=== PATIENT | female | born 1965 | race African-American/Black ===

== ENCOUNTER 2016-11-28 08:44 | Inpatient (IN) | payer OTHER ==
[~2016-11-28] VITALS: Ht 167.6 cm; Wt 98.7 kg
[2016-11-28] VITALS (22 sets, daily range): BP systolic 126–163; BP diastolic 56–90
--- NOTE | ~2016-11-28 | HC ---
[facility] [place] [address] CONSULTATION Name: CELY TIPTON Room #: [facility] IN M.R.#: [id number] Admission: 11/28/16 Attend Phys: Bradford Perez MD Discharge: Date of : 63 Report #: [id number] THIS REPORT FOR: //name// CC: Mansoor Pringle MD, Dr. Julio Cesar Perez REASON FOR CONSULTATION: Catheter-associated upper extremity extensive DVT and currently on prophylactic Lovenox. HISTORY OF PRESENT ILLNESS: The patient is a 51-year-old -[place] female in the ICU, on the ventilator. She was admitted earlier for evaluation of outpatient shortness of breath and pneumonia. Note that she had a PICC line and catheter placed on approximately November 28, was also on prophylactic Lovenox 40 mg. Unfortunately, she developed progressive arm swelling and an ultrasound done yesterday showed extensive upper right extremity DVT involving the right internal jugular, subclavian, axillary and visualized brachial veins. The description was "there was extensive occlusive thrombus within the right upper extremity venous system, including the internal jugular vein, subclavian vein, axillary vein and the visualized brachial veins. The basilic vein is not well visualized. The cephalic vein and radial and ulnar veins are patent". The patient is on the vent and currently sedated and not responding to voice or gentle touch. Note that the patient was originally admitted on November 28 for shortness of breath, cough and chest pain. She had a recent admission for pneumonia and presented with progressive worsening shortness of breath since 05:00 a.m. that morning. At that time, she described having a cough that was mostly nonproductive, had some mild shortness of breath with activity. She also had chest discomfort that was sharp and stabbing and increased with inspiration. No history of any fever, nausea or vomiting. In the ER, she was found to be profoundly hypoxic. The patient underwent surgery on 11/29/[address] Graeme Syed. This was a bronchoscopy with right video-assisted thoracoscopy with wedge resection of the lower and middle lobes. The pathology on this has come back described as wedge biopsies of alveolated lung tissue with architecture and patchy areas of organizing pneumonia. 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 As mentioned above, the patient did have a PICC line placed on November 28 and has been on prophylactic Lovenox. Per the chart, there was no previous history of DVT or clotting abnormality, no mention of family history, but it is really not obtainable at this time. PAST MEDICAL HISTORY: Past history is notable for the history of the recent BOOP, diabetes, cholecystectomy, hypertension and pneumonia in October 2016. Has had a normal echocardiogram. [address] [address] CONSULTATION Name: CELY TIPTON Room #: 244-P ADM IN M.R.#: [id number] Admission: 11/28/16 Attend Phys: Bradford Perez MD Discharge: Date of : 63 Report #: [id number] ALLERGIES: No known drug allergies. MEDICATIONS: At this time currently include docusate 100 b.i.d., Lovenox 100 b.i.d. begun yesterday, insulin on a sliding scale, fentanyl 50 mcg p.r.n., propofol on a drip, ipratropium and albuterol 3 mL via respiratory therapy q.4h. p.r.n., methylprednisolone 250 mg q.6h. begun on the , ceftriaxone 1 gram IV q.24h., amlodipine 10 mg daily, pantoprazole 40 daily, IV lorazepam 0.5 q.6h. IV p.r.n., hydralazine p.r.n., insulin 30 units detemir b.i.d., Zofran p.r.n., nicardipine drip as needed, gabapentin 100 mg b.i.d. and Tylenol p.r.n. LABORATORY DATA: Lab exams thus far have included recent BUN of 24 and creatinine of 0.5. Electrolytes fairly unremarkable. AST on the was 26. Total bilirubin 0.4, directly 0.1. Calcium 8. Magnesium 2.5. AST 3.8. Albumin recently 2.4. Coags on the were normal, with a protime of 11.3, INR 1.1 and APTT 25.9. D-dimer is elevated at 0.9 on November 09. Recent white count of 9.9, hemoglobin 8.8. Note that on admission, on November 07, it was 10.4. MCV when admitted back on November 07 was 79.2; more recently, it has 77.8. Platelet count 177,000. Note that back when she was originally admitted on , it was 566,000. This admission, the first, was 280,000. Differential shows increased neutrophils. Differential has described large platelets, no acute forms. Sed rate of 90 on the first. Rheumatoid factor 16.4. SOFIA profile: C4 was 31, normal range; C3 was 142, normal range. Simmons antibody negative. [employer] antibody negative. IgG 1370, IgA 227 and IgM 154. Hemoglobin A1c 8.7. IgE 694. Multiple infections and allergy type tests appeared to be negative on my understanding. Radiologically, the patient had a recent CT chest on the , showing improvement in the infiltrate and atelectasis in the lung bases, with significant increase in ground-glass opacities. No evidence of acute pulmonary embolism that day. The visible abdominal structure showed surgical changes of cholecystectomy and gastric catheter in place. PHYSICAL EXAMINATION: VITAL SIGNS: Height is 5 feet 6 inches, which is 167.6 cm. Weight is 228 pounds, which is 103.6 kilograms. Blood pressure 135/67, respirations 22, pulse 90 and temperature 97.8 axillary. The patient is currently on FiO2 of 50% with O2 sat of 98%. NEUROLOGIC: The patient is sedate. Mood, cannot assess neurologically. The patient's face is symmetrical, but she is not really responding at this time. HEART: Regular rate. LUNGS: Have some slight coarse rhonchi. No definite wheezes at this time. EXTREMITIES: Note, the patient has a PICC line in her right arm. No distinct obvious collateralization of veins. Right arm does appear slightly more swollen than the left. Extremities are without clubbing or cyanosis. SCDs are in place. It appears to be 1-2 mm edema peripherally. ABDOMEN: Appears to be soft, nontender. No masses. [address] [address] CONSULTATION Name: CELY TIPTON Room #: 244-P ADM IN M.R.#: [id number] Admission: 11/28/16 Attend Phys: Bradford Perez MD Discharge: Date of : 63 Report #: [id number] GENITOURINARY: Briggs shows normal urine, without any blood. SKIN: Does not show any evidence of ecchymosis. ASSESSMENT AND PLAN: 1. Extensive upper extremity catheter-associated deep venous thrombosis, currently on prophylactic Lovenox. I agree with therapeutic Lovenox with probable transition to Coumadin at a later date. Most likely, this clot is related to inflammatory state and catheter causing irritation of the vascular wall. We will check some hypercoagulable panel to suggest most of it might make a difference in long-term anticoagulation. We will check anticardiolipin antibodies, lupus anticoagulants and glycoprotein 1 antibodies. If they are positive, I would strongly consider Coumadin as treatment and I would also wish to repeat blood test in 3 months to see if it is persistent. Would also probably consider longer duration than usual, such as 6 months of duration of catheter-associated clot treatment, appears to be extensive in nature. Would also prefer to wait 3 days of anticoagulation to let the clot get smaller so there is less clot to possibly break loose when the catheter is removed. It is critical that the patient gets best not to take any chance about an additional PE on top of her compromised respiratory status. Would also target INR 2-3 at this point, if she is switched to Coumadin. 2. Anemia. Most likely iron deficient. We will check lab, but a drop in MCV from 80s to 79s suggests this. With multiple lab draws, this is the most likely cause. 3. Bronchiolitis obliterans with organizing pneumonia. Continue steroids and antibiotics per others. 4. Hypoxic respiratory failure. Defer ventilatory management to pulmonary. 5. Diabetes. Continue sliding scale insulin. 6. Hypertension. Meds. 7. Nutrition. Continues control feeding. We will follow with you. <ELECTRONICALLY SIGNED> By: Chris Nguyen MD 12/08/16 0737 [id number] [id number] Chris Nguyen MD /nt
--- NOTE | ~2016-11-28 | H ---
[facility] [place] [address] HISTORY AND PHYSICAL Name: SAEEDCELY Room #: 244-P ADM IN M.R.#: [id number] Admission: 11/28/16 Attend Phys: Bradford Perez MD Discharge: Date of : 63 Report #: [id number] THIS REPORT FOR: //name// CC: Julio Cesar Perez DATE OF SERVICE: 11/28/2016 CHIEF COMPLAINT: Shortness of breath, cough and chest pain. HISTORY OF PRESENT ILLNESS: The patient is a 51-year-old female with history of diabetes, history of hypertension and recent admission for pneumonia at [facility], presented to the Emergency Room complaining of progressively worsening shortness of breath, pretty much worse since 5:00 a.m. this morning. The patient was admitted here for pneumonia and was discharged on 11/14/2016. Patient states she has had cough since then. Cough has been mostly nonproductive. She has had some mild shortness of breath with activity. She works at [employer] [facility] and in fact was able to go back to work on Saturday. This morning she started having increasing shortness of breath at 5:00 a.m. this morning when she was asleep and she also had chest pain, that are sharp and stabbing, which increases with inspiration. She has had cough with nonproductive sputum. No history of any fever. No nausea, vomiting. On arrival to the Emergency Room, the patient was profoundly hypoxic. The patient was placed on a nonrebreather. PAST MEDICAL HISTORY: Significant for diabetes, cholecyste ctomy, hypertension, pneumonia in October 2016. No history of any peptic ulcer disease, bleeding disorder, no cardiac history. She did have an echocardiogram done during last admission last month, which showed normal ejection fraction. ALLERGIES: No known drug allergy. HOME MEDICATIONS: Reviewed, please look at the nursing documentation for home medications. SOCIAL HISTORY: No smoking or alcohol abuse or illicit drug abuse. FAMILY HISTORY: Significant for diabetes. REVIEW OF SYSTEMS: CONSTITUTIONAL: No change in her weight. No fever or chills. EYES: No change in vision. THROAT: Denies any sore throat. CARDIOVASCULAR: As above. No dizziness or palpitations. RESPIRATORY: As above. GASTROINTESTINAL: No nausea, vomiting, abdominal pain. [address] [address] HISTORY AND PHYSICAL Name: CEYL TIPTON Room #: 244-P [facility] IN M.R.#: [id number] Admission: 11/28/16 Attend Phys: Bradford Perez MD Discharge: Date of : 63 Report #: [id number] GENITOURINARY: No dysuria, hematuria. NEUROLOGIC: No focal numbness or weakness of the extremity. PSYCHIATRIC: No anxiety or depression. A 12-point review of system is negative other than the positive and negative dictated in the history of present illness and the review of system. PHYSICAL EXAMINATION: VITAL SIGNS: Blood pressure is 162/73, heart rate of 130 per minute. She is breathing at 40 per minute. GENERAL: She is in moderate respiratory distress, presently on a Ventimask. She is awake and alert, and follows commands. She is saturating 98% on Ventimask. EYES: Pupils are equal, reacting to light. Throat appears normal. NECK: Supple, no JVD, no bruit, no lymphadenopathy. CARDIOVASCULAR SYSTEM: S1, S2. No S3. CHEST: Bilateral air entry present. Reduced breath sounds in the bases, mostly clear on auscultation. ABDOMEN: Soft, bowel sounds present, no mass, no organomegaly, no tenderness. EXTREMITIES: Periphery left leg, she has 1+ edema and the left leg appears to be slightly more swollen than the right leg. Dorsalis pedis 1+. NEUROLOGICAL: The patient is awake and alert and able to move all 4 extremities. LABORATORY DATA: Reviewed. EKG showed sinus tachycardia. Rate at 130 per minute. Chest x-ray showed bilateral pulmonary infiltrate with worsening left infiltrate compared to previous. This was small pleural effusion. White count is 12.8. Differential is 88% segs. PT, PTT are within normal limit. Blood gas showed a pH of 7.46, pCO2 is 31, pO2 is 45. Chemistry showed a normal BUN and creatinine. AST and ALT are within normal limit. Troponin less than 0.04. UA revealed 2+ ketones, trace blood. Blood glucose was 130. ASSESSMENT AND PLAN: 1. Acute respiratory failure with hypoxia, likely secondary to a pneumonia, possible pulmonary embolism. The patient will be continued on broad-spectrum antibiotic Zosyn plus vancomycin plus levofloxacin and DuoNeb. Pulmonary has been consulted. The patient is scheduled to get a CTA of the chest to rule out pulmonary embolism. I have also ordered a Doppler of the lower extremity to rule out any deep vein thrombosis. She has already been started on Lovenox 1 mg/kg subcutaneous every 12 hours. We will titrate oxygen. We will repeat her blood gas in the morning. 2. Diabetes. We will check hemoglobin A1c. We will place her on sliding scale insulin. 3. Possible hospital-acquired pneumonia. The patient will be continued on broad spectrum antibiotic. We will follow cultures and adjust antibiotic as needed. 4. Deep venous thrombosis prophylaxis. The patient will be on Lovenox. [address] [address] HISTORY AND PHYSICAL Name: CELY TIPTON Room #: 244-P ADM IN M.R.#: [id number] Admission: 11/28/16 Attend Phys: Bradford Perez MD Discharge: Date of : 63 Report #: [id number] 5. Gastrointestinal prophylaxis. The patient will be placed on Protonix. 6. History of hypertension. I will continue to monitor closely. Treatment plan has been explained to the patient in detail. <ELECTRONICALLY SIGNED> By: Bradford Perez MD 11/28/16 1326 1029 1256 Bradford Perez MD /nt
--- NOTE | ~2016-11-28 | P ---
[facility] [place] [address] PROCEDURE REPORT Name: SAEEDCELY Room #: 244-P [facility] IN M.R.#: [id number] Admission: 11/28/16 Attend Phys: Bradford Perez MD Discharge: Date of : 63 Report #: [id number] THIS REPORT FOR: //name// CC: Julio Cesar Perez DATE OF SERVICE: 12/05/2016 PROCEDURE: Intubation. INDICATION: Hypoxemic respiratory failure and respiratory distress. PROCEDURE NOTATION: The patient agreeable to intubation at this time. The patient with severe pulmonary infiltrates and hypoxemic respiratory failure, failing noninvasive ventilation. The patient initially given 3 mg of etomidate. The patient was sedate, but not relaxed enough to open airway. The patient then received 10 mL of propofol; again sedate, but not relaxed. The patient then given mg of succinylcholine. The patient achieved paralysis and significant relaxation. Using a Skyla 4 blade with direct laryngoscopy, a grade 1 view of the vocal cords was noted. A 7.5 endotracheal tube was placed and advanced to 23 cm to the teeth. Positive Easy cap color change and breath sounds were noted bilaterally. No significant hypoxemia during the procedure. The patient tolerated bag mask ventilation prior to intubation. Endotracheal tube secured in place. Chest x-ray pending at this time. <ELECTRONICALLY SIGNED> By: Ty Spann MD 12/10/16 1119 1032 1205 Ty Spann MD /nt
--- NOTE | ~2016-11-28 | HC ---
[facility] [place] [address] CONSULTATION Name: SAEEDCELY Room #: [facility] ADM IN M.R.#: [id number] Admission: 11/28/16 Attend Phys: Bradford Perez MD Discharge: Date of : 63 Report #: [id number] THIS REPORT FOR: //name// CC: Julio Cesar Perez DATE OF SERVICE: 11/28/2016 REFERRING PROVIDER: Bradford Perez MD REASON FOR CONSULTATION: Pneumonia and hypoxemia. CHIEF COMPLAINT: Shortness of breath. HISTORY OF PRESENT ILLNESS: Our group was asked to see the patient in consultation while hospitalized at [facility], seen in the emergency department prior to CT imaging earlier this morning. A very pleasant 51-year-old woman recently hospitalized and discharged 2 weeks ago with underlying community-acquired pneumonia, cultures and influenza screening at that time were negative. The patient was treated with antimicrobial therapy and subsequently discharged 2 weeks ago. The patient states she had been improving; however, over the last 2 days, she had some increasing shortness of breath, cough with no sputum production, has had some fevers and general malaise, symptoms got dramatically worse overnight, presented to the emergency department this morning where she was found to be profoundly hypoxemic, now on high flow nasal cannula O2 with intermittently on nonrebreather mask with respiratory rate of 40 and somewhat in respiratory distress. Chest radiograph in the emergency department revealed worsening bilateral predominant lower lobe infiltrates. A CT scan of the chest PE protocol was performed, which revealed no pulmonary emboli, but did reveal dense consolidation again in the bilateral lower lobes predominantly posterior. There may have been some cavitation to a nodular area in the left posterior upper lobe noted. The patient denies any hemoptysis. No history of any connective tissue disease, although has mother with a history of lupus. The patient has not done any recent travel and as mentioned stated she was doing better until the last few days since her recent discharge. While hospitalized recently, there was no isolation required due to no isolation of resistant pathogens at that time. ALLERGIES: None known. PAST MEDICAL HISTORY: 1. Diabetes mellitus type 2. 2. Hypertension. 3. Recent pneumonia. OUTPATIENT MEDICATIONS: Included recently levofloxacin, prednisone taper, [facility] [address] [place] [address] CONSULTATION Name: CELY TIPTON Room #: 244-P [facility] IN M.R.#: [id number] Admission: 11/28/16 Attend Phys: Bradford Perez MD Discharge: Date of : 63 Report #: [id number] albuterol inhaler, amlodipine, and insulin. 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 FAMILY HISTORY: Significant for systemic lupus in her mother, no significant pulmonary disease or connective tissue disease, otherwise. REVIEW OF SYSTEMS: CONSTITUTIONAL: Fevers and general malaise noted. ENT: No upper respiratory congestion, rhinorrhea, or epistaxis. CARDIOVASCULAR: No chest pains or palpitations. GASTROINTESTINAL: No nausea, vomiting, diarrhea, constipation or abdominal pain. GENITOURINARY: No dysuria or urinary frequency. INTEGUMENT: Denies any rash. MUSCULOSKELETAL: Some generalized weakness and some increased lower extremity edema noted. PHYSICAL EXAMINATION: VITAL SIGNS: Temperature max 38.9, pulse 130s, respiratory rate 40, blood pressure 134/56, and oxygen saturation 99%. GENERAL: This is an obese middle-aged woman, in moderate respiratory distress. HEENT: Clear oropharynx, Mallampati 3 airway. NECK: Supple, no lymphadenopathy. LUNGS: Diminished breath sounds with bronchial breath sounds noted bilaterally one-half way up. No wheezes appreciated. CARDIOVASCULAR: Heart tachycardic, but regular. No murmurs noted. ABDOMEN: Soft, nontender, no masses, no hepatosplenomegaly. EXTREMITIES: With trace lower extremity edema. They are warm with 2+ pulses noted. INTEGUMENT: No rash. LABORATORY DATA: INR was 1.1. Chemistry profile was within normal limits except for an elevated glucose at 130. CK normal. ProBNP normal. Albumin slightly elevated at 2.4. Rest of general chemistries were normal. CBC revealed a white blood cell count of 13,000, hemoglobin 11, hematocrit 35, and platelet count 280. Arterial blood gas done on 4 liters revealed pH 7.47, pCO2 of 31, pO2 of 45, and bicarbonate of 23. Urinalysis did reveal some ketones and a trace amount of blood, was not specified as far as RBC number. Chest x-ray as described. CT as described. IMPRESSION: 1. Recurrent dense consolidation within the bilateral lung gilmore, worrisome for recurrent resistant pathogen from recent pneumonia and also be concerned about post-infectious bronchiolitis obliterans organizing pneumonia. Given the [address] [address] CONSULTATION Name: SAEEDCELY Room #: 244-P ADM IN M.R.#: [id number] Admission: 11/28/16 Attend Phys: Bradford Perez MD Discharge: Date of : 63 Report #: [id number] location, chronic aspiration should be considered. Connective tissue disease, that had been responsive to steroids recently, should be considered in the differential diagnosis. 2. Hypoxemic respiratory failure. SUGGEST: 1. ICU care. 2. Broad-spectrum antimicrobials. 3. Ask Dr. Mansoor Pringle, infectious disease to reconsult this patient. 4. The patient may require bronchoscopy to further evaluate. However, I do not think the patient would tolerate it at this point due to profound hypoxemia and respiratory distress without the use of subsequent mechanical ventilatory support. 5. Check connective tissue serologies. 6. Systemic steroids with taper. 7. Bronchodilators can be continued, but I do not think they were of significant benefit as there was no significant bronchospasm in this patient. 8. Await cultures. 9. Check MRSA screen. 10. Further recommendations will follow. Thank you for requesting our suggestions. <ELECTRONICALLY SIGNED> By: Ty Spann MD 11/30/16 1122 1211 1745 Ty Spann MD /nt
--- NOTE | ~2016-11-28 | S ---
[facility] [place] [address] SURGICAL PATH RPT PROCEDURE Name: CELY TIPTON Room #: 244-P ADM IN M.R.#: [id number] Admission: 11/28/16 Date of : 63 Discharge: Report #: [id number] Path Case #: [id number] PATHOLOGY REPORT COLLECTION DATE: 11/29/2016 RECEIVED DATE: 11/30/2016 SUBMITTING PHYS: Dr. Graeme Syed OTHER PHYS: Dr. Julio Cesar Perez ADDENDUM REPORT (Order Date: 12/06/2016 00:00) ADDENDUM DIAGNOSIS: Please see next page for scanned image of report submitted by [facility] science consultant pathologist, Rd Chapman M.D. (CLW:sy; d/t: 12/07/2016) ADDENDUM COMMENT: ELECTRONICALLY SIGNED BY: Dina Arroyo M.D. DATE/TIME:12/07/2016 11:20 SPECIMEN(S) RECEIVED: A.Right lung lower lobe biopsy B.Right middle lobe biopsy * * * * * * * * * * * * FINAL DIAGNOSIS: A. "Right lung lower lobe biopsy," wedge biopsy: - Alveolated lung tissue with patchy prominent organizing pneumonia and focal acute inflammation and fresh hemorrhage; no significant interstitial fibrosis, granulomas, vasculitis or malignancy seen. (see comment) B. "Right middle lobe biopsy," wedge biopsy: - Alveolated lung tissue with patchy prominent organizing pneumonia and focal acute inflammation and fresh hemorrhage; no significant interstitial fibrosis, granulomas, vasculitis or malignancy seen. (see comment) COMMENT: Specimens A and B are similar histologically. Sections show wedge biopsies of alveolated lung tissue with overall intact architecture and patchy areas of organizing pneumonia. The loose fibroblastic proliferations are uniformly similar and are centered within alveolar spaces. Small focal areas of acute inflammation and fibrin are identified. No significant interstitial fibrosis, granulomas, vasculitis, or malignancy is seen. Clinical and radiographic correlation is required. The case is discussed with Dr. Graeme Syed on 12/03/16 at approximately 12:[address] [place] [address] SURGICAL PATH RPT PROCEDURE Name: CELY TIPTON Room #: 244-P [facility] IN M.R.#: [id number] Admission: 11/28/16 Date of : 63 Discharge: Report #: [id number] Path Case #: [id number] 12/03/16 at 3:45 PM. (CLW:; d/t: 12/03/16) PATHOLOGIST: Dina Arroyo M.D. REPORT ELECTRONICALLY SIGNED BY: Dina Arroyo M.D. DATE/TIME: 12/03/2016 16:21 * * * * * * * * * * * * GROSS PATHOLOGY: A. The specimen is received fresh, gently inflated and subsequently fixed in formalin labeled "Cely Soterorichard, right lung lower lobe biopsy". Received is a wedge resection of pink-pierre lung tissue measuring 4.3 x 4.2 x 1.2 cm in greatest mentions. The francisca are removed and the new margin is inked black. Sectioning reveals pink-pierre to light pierre cut surfaces with no grossly distinct nodules or lesions. The specimen is submitted representatively in cassettes A1 through A3. B. The specimen is received fresh, gently inflated and subsequently fixed in formalin labeled "Cely Tipton, right middle lobe biopsy". Received is a wedge resection of pink-pierre lung tissue measuring 4.3 x 2.7 x 1.4 cm in greatest dimensions. The francisca are removed and the new margin is inked black. Sectioning reveals pale pierre to pink-pierre cut surfaces with no grossly distinct nodules or lesions. The specimen is submitted representatively in cassettes B1 through B3. (CAA; 11/30/2016) CLINICAL HISTORY: Idiopathic pneumonia INITIAL CPT CODE(S): 43710(2) Professional services performed by [facility] at [facility] [address] [place] [address] Technical services performed by [facility] at [address] [place] [address], [address], [place] [address]. [facility] [address] [place] [address] PHONE: [phone] DIRECTOR: Freddie Pyle M.D. * * * END OF REPORT * * *
--- NOTE | ~2016-11-28 | HC ---
[facility] [place] [address] CONSULTATION Name: CELY TIPTON Room #: 244-P ADM IN M.R.#: [id number] Admission: 11/28/16 Attend Phys: Bradford Perez MD Discharge: Date of : 63 Report #: [id number] THIS REPORT FOR: //name// CC: Julio Cesar Perez DATE OF SERVICE: 12/09/2016 GASTROENTEROLOGY CONSULTATION REASON FOR CONSULTATION: Black aspirate per OG tube. CONSULTING PHYSICIAN: Julio Cesar Galdamez DO. HISTORY OF PRESENT ILLNESS: This is a 51-year-old female who was admitted on 11/28/2016 with shortness of breath, cough and chest pain. She is diagnosed with pneumonia, status post thoracostomy with biopsy and pathology consistent with cryptogenic organizing pneumonia. She is currently on the ventilator. A GI consult is requested for black aspirate that was noted yesterday. Currently, the aspirate from the OG tube is bilious. Hemoglobin trend was reviewed and noted to be , 8.9 and 8.8 on the last 3 checks. The patient has had increased residuals and a KUB shows retained stool in the colon, suggestive of constipation. I cannot obtain the history due to her being on the ventilator. Hence, history is obtained from the nurse and chart. REVIEW OF SYSTEMS: Unobtainable. PAST MEDICAL AND SURGICAL HISTORY: 1. Diabetes mellitus. 2. Cholecystectomy. 3. Hypertension. ALLERGIES: Reviewed and noted. MEDICATIONS: Reviewed and noted. SOCIAL HISTORY: Unobtainable. FAMILY HISTORY: Unobtainable. PHYSICAL EXAMINATION: GENERAL: She is currently on the ventilator and sedated. VITAL SIGNS: Hemodynamically stable, afebrile. HEAD: Normocephalic, atraumatic. EYES: Pupils equal, round and reactive to light and accommodation. NECK: Supple. Midline trachea. Thyroid palpable. [facility] [address] [place] [address] CONSULTATION Name: CELY TIPTON Room #: 244-P [facility] IN .R.#: [id number] Admission: 11/28/16 Attend Phys: Bradford Perez MD Discharge: Date of : 63 Report #: [id number] CARDIOVASCULAR EXAMINATION: Regular rate and rhythm. No murmurs. RESPIRATORY: Coarse breath sounds bilaterally. ABDOMEN: Soft, obese. Bowel sounds are hypoactive. EXTREMITIES: With 1+ pitting edema bilaterally. NEUROLOGICAL EXAMINATION: Unable to assess at this time. LABORATORY DATA: Hemoglobin 8.0, white count 11.0 and platelets 244,000. BUN is 21, creatinine 0.5. INR 1.1. DIAGNOSTIC IMPRESSION: 1. Black aspirate per OG. It appears to have resolved now. This could be likely from underlying constipation, as evident on the KUB. Current aspirate is bilious. Hemoglobin trend is noted and is as follows: , 8.9 and 8.8 on last 3 checks. I recommend increasing Protonix to 40 mg IV b.i.d. No endoscopic evaluation indicated at this time. Monitor H and H and transfuse to keep hemoglobin more than 7.0. 2. Abnormal KUB. It shows retained stool in the colon, suggestive of constipation. The patient will currently get suppository as appropriate. Her underlying constipation/ileus may be playing a role in the black aspirate that was evident yesterday on the aspirate per the OG tube. We will follow. Thank you for allowing me to participate in the care of the patient. By: 1135 1238 Montana Bowden MD /nt
--- NOTE | ~2016-11-28 | EKG ---
[address] [address] ELECTROCARDIOGRAM REPORT Name: JOSE CARLOSZaneLEATHACELY Room #: [facility] M.R.#: [id number] Admission: Attend Phys: Discharge: Date of : 63 Report #: [id number] THIS REPORT FOR: //name// [facility] ED Test Date: 2016-11-28 Test Time: 08:54:58 Pat Name: CELY TIPTON Department: Room: Gender: F Training Assistant: ELIZABETH : 1965 Requested By: Mansoor Kirby Order Number: [id number] MD: Reggie Baer Measurements Intervals [place] Rate: 133 P: 48 VA: 125 QRS: 35 QRSD: 73 T: 61 QT: 289 QTc: 430 Interpretive Statements Sinus tachycardia Compared to ECG 11/09/2016 13:56:34 No significant changes Electronically Signed On 11-28-2016 9:14:35 [facility]ITAL[facility] by Reggie Baer [email or web address] <ELECTRONICALLY SIGNED> By: Reggie Baer MD, [facility] 11/28/16 0914 0854 0854 Reggie Baer MD, FACC /EPI
--- NOTE | ~2016-11-28 | EKG ---
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
--- NOTE | ~2016-11-28 | O ---
[facility] [place] [address] OPERATIVE REPORT Name: CELY TIPTON Room #: 244-P ADM IN M.R.#: [id number] Admission: 11/28/16 Attend Phys: Bradford Perez MD Discharge: Date of : 63 Report #: [id number] THIS REPORT FOR: //name// CC: Julio Cesar Perez DATE OF SERVICE: 11/29/2016 PREOPERATIVE DIAGNOSIS: Bilateral idiopathic pneumonia. POSTOPERATIVE DIAGNOSIS: Bilateral idiopathic pneumonia. PROCEDURE: Bronchoscopy, right video-assisted thoracoscopy with wedge resections of lower and middle lobes. SURGEON: Graeme Syed M.D. DIRECTOR RISK: [place]. ANESTHESIA: General. INDICATIONS: Cely Tipton is a 51-year-old with idiopathic pneumonia. The patient had been treated with a combination of antibiotics and steroids and had gotten somewhat better. This was approximately 2 weeks ago in the hospital. Steroids were stopped and the patient had a recrudescence of pneumonia and with concern that the specific etiology was not known. We were asked to see the patient for biopsy. FINDINGS AND TECHNIQUE: After general anesthesia was established, flexible diagnostic bronchoscopy was performed. No endobronchial lesions were noted. Double lumen endotracheal tube was placed and the patient was positioned with right side up. Exposure was obtained through typical video-assisted thoracoscopy ports. Wedge resections were taken of middle and lower lobe with applications of the stapler. Pathology was consulted to see if we had provided adequate samples of lung and the answer was in the affirmative. Hemostasis was ascertained and the chest tube was brought through the lowest port and the other ports were closed in layers. The patient was taken to the recovery area in good condition, having tolerated the procedure well. It should be noted that there were no obvious pleural changes. The lung itself looked a bit cobblestoned, but not dramatically so. This was likely related to edema. No other ____ observations were made. The patient tolerated the [facility] [address] [place] [address] OPERATIVE REPORT Name: CELY TIPTON Room #: 244-P [facility] IN [facility].#: [id number] Admission: 11/28/16 Attend Phys: Bradford Perez MD Discharge: Date of : 63 Report #: [id number] procedure reasonably well with intermittent periods of one long ventilation necessary for her limited pulmonary reserve. The patient was returned to the intensive care unit on the ventilator, having tolerated the procedure well. All counts reported as correct. <ELECTRONICALLY SIGNED> By: Graeme Syed MD 12/12/162009 1749 1821 Graeme Syed MD /nt
--- NOTE | ~2016-11-28 | HC ---
[facility] [place] [address] CONSULTATION Name: CELY TIPTON Room #: 208-[facility] IN M.R.#: [id number] Admission: 11/28/16 Attend Phys: Bradford Perez MD Discharge: 12/19/16 Date of : 63 Report #: [id number] THIS REPORT FOR: //name// CC: Julio Cesar Perez HISTORY OF PRESENT ILLNESS: The patient is a 51-year-old -[place] female employee at [employer] who was recently hospitalized from 11/06 to 11/14/2016 for pneumonia, respiratory failure and diabetes mellitus. She was discharged home, ambulatory, was doing well without gait aids, getting to the point of coming back to work. She then had an increase in her shortness of breath and ended up being readmitted on November 28 with acute respiratory failure. She was noted to have bilateral idiopathic pneumonia and underwent video-assisted thoracoscopy with wedge resection biopsy of lower and middle lobes. 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 She has needed prolonged intubation with mechanical ventilation and was just extubated on December 13. She has had some ileus and has been on TPN. She just passed her swallow study and is now on pureed nectar thickened liquids, but is continuing with TPN for now. She also had an extensive right upper extremity DVT with hematology involved. We are seeing her now in rehabilitation medicine consultation. PAST MEDICAL HISTORY: Includes the noted recent hospitalization with pneumonia, respiratory failure and diabetes. She does have some exogenous obesity. ALLERGIES: No known drug allergies. FAMILY HISTORY: Significant for diabetes. MEDICATIONS: Please see the full medication listing. SOCIAL HISTORY: She lives in a duplex with her daughter and son-in-law. She has 2 sisters and a brother in the area ____ sister as well. There are 5 steps into the duplex. She did not utilize gait aids premorbidly. One of her sister is a nurse by training and notes that she could assist as well. REVIEW OF SYSTEMS: Did not offer any current complaints of chest pain or shortness of breath or abdominal discomfort. She notes she has the lower extremity edema, which is bothersome and is on Lasix. Complains of significant generalized weakness. No focal extremity complaints other than some residual right upper extremity discomfort after having the extensive DVT. PHYSICAL EXAMINATION: GENERAL: A 51-year-old obese -[place] female in no obvious distress. She is currently on 4 liters nasal prong O2. NEUROLOGIC: Facies are symmetric. She does have some swelling of that right [address] [address] CONSULTATION Name: CELY TIPTON Room #: [facility] IN M.R.#: [id number] Admission: 11/28/16 Attend Phys: Bradford Perez MD Discharge: 12/19/16 Date of : 63 Report #: [id number] upper extremity, 2+ edema proximal and distal. Tends to have some discomfort, but was able to move the arm with strength probably a grade 3+/5, left upper extremity strength is grade 3+/5. EXTREMITIES: Lower extremity, she has 1-2+ distal edema. She was unable to lift either leg up off the bed, and I would only grade her lower extremity strength at probably grade 3- to 2+. She appeared to be even weaker both ankles and she may have some component of a foot drop, dorsiflexion and eversion has both appeared to be less than antigravity bilaterally. Proprioception appeared to be reasonably intact. She has been max assist with basic bed mobility. ASSESSMENT: A 51-year-old -[place] female with the following problem list: 1. 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 She has considerable weakness of both lower extremities as well as upper extremities. She may have a component of a critical illness neuropathy as well. 2. Medical complexity with generalized debilitation. 3. Dense pulmonary consolidation status post VATS with biopsy, most consistent with cryptogenic organizing pneumonia. 4. Hypoxemic respiratory failure. 5. Ileus, is now taking a diet, currently pureed with nectar-thickened liquids. She is also currently on TPN. 6. Extensive right upper extremity DVT. 7. Diabetes mellitus type 2. 8. Hypertension. 9. Exogenous obesity. PLAN: I encouraged the patient to continue to work in physical therapy and occupational therapy on building up her strength and endurance. She certainly could be a candidate for an acute in-hospital inpatient rehabilitation stay if she can improve her overall endurance and tolerance for the therapy program. She is very motivated to return back to the home setting when she is better. It would be ideal to be able to have the multiple physician consultants continue to follow the patient while she is on the acute rehab fountain with her multiple above noted comorbidities. At this time, we will continue to follow along and assess her overall tolerance for therapies. She will eventually need insurance precertification issues looked into. Thank you for asking us to assist in this patient's care. We will continue to follow along with you. <ELECTRONICALLY SIGNED> By: Issa Cramer MD 12/21/16 1539 1639 1851 Issa Cramer MD /nt
--- NOTE | ~2016-11-28 | HC ---
[facility] [place] [address] CONSULTATION Name: JOSE CARLOSZaneLEATHACELY Room #: [facility]- ADM IN M.R.#: [id number] Admission: 11/28/16 Attend Phys: Bradford Perez MD Discharge: Date of : 63 Report #: [id number] THIS REPORT FOR: //name// CC: Julio Cesar Perez REASON FOR CONSULTATION: I was asked to evaluate concerning bilateral pulmonary infiltrates and respiratory failure. HISTORY OF PRESENT ILLNESS: The patient is a 51-year-old hospitalized here on 11/06/2016 with which she reported was a 3-day history of cough, sputum production, fever, and chills. Found to have bilateral pulmonary infiltrates. She had a significant amount of pleuritis and congestion. I treated with antibiotics and given a course corticosteroids. She improved and was later dismissed on November 14 off oxygen and feeling reasonably well. She did return to work earlier this week and finished her course of antibiotics end of last week. She finished her prednisone first of this week. Subsequently, developed increased shortness of breath and sensation very similar to her previous presentation with fever and chills, nonproductive cough. She is now in the intensive care unit on high flow oxygen. She has been tachycardic, blood pressure has been stable. She has had no new exposures, travel or any new history than from her last consultation. Workup at that time had noted on CT scan, she had some upper mediastinal lymphadenopathy which was mildly enlarged. She had predominantly basilar patchy pulmonary infiltrates. Rheumatoid factor was positive, SOFIA was positive. Viral respiratory panel was negative. Histoplasma antibiotics and antigens negative. HIV negative, immunoglobulin was normal, legionella negative. ALLERGIES: None known. MEDICATIONS: As noted on her MAR, now on vancomycin, Levaquin and Zosyn. PAST MEDICAL HISTORY: Diabetes, hypertension, cholecystectomy. SOCIAL HISTORY: Nonsmoker, no significant alcohol intake, no HIV risk factors, no tuberculosis exposure. FAMILY HISTORY: Noncontributory. 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 REVIEW OF SYSTEMS: No GI or complaints. PHYSICAL EXAMINATION: VITAL SIGNS: Temperature is 101 degrees. She was 102 earlier this morning, she is tachycardic and tachypneic. Blood pressure was stable. She is on 15 liters [facility] [employer] [address] CONSULTATION Name: CELY TIPTON Room #: [address] [place] [address] [place] .R.#: [id number] Admission: 11/28/16 Attend Phys: Bradford Perez MD Discharge: Date of : 63 Report #: [id number] nonrebreather. She received 2 liters of IV fluid. Had indwelling Briggs catheter with good urine output. GENERAL: She was moderately obese. SKIN: Unremarkable. LYMPH: Unremarkable. HEENT: Unremarkable. LUNGS: Coarse crackles in the bases bilaterally. She had decreased excursions and was tachypneic. No definite rub. HEART: Regular without murmur. Tachycardic. ABDOMEN: Soft, nontender, no hepatosplenomegaly or mass. EXTREMITIES: Unremarkable. LABORATORY STUDIES: Sedimentation rate 90, lactate 1.4. Influenza antigen negative. Hemoglobin 11, white count 12.8, platelet count was 280,000. Sodium 137, potassium 4.0. Creatinine 0.7. Liver function test normal. Urinalysis unremarkable. ABG on 4 liters at presentation showed a pO2 of 45, pCO2 of 31, pH 7.46. Blood cultures and ANCA are pending. IMPRESSION: A 51-year-old, underlying diabetes with persistent bilateral infiltrates, now with respiratory failure. I suspect her relapse is secondary to tapering her steroids. I suspect underlying autoimmune illness or vasculitis. Recommend further workup on these . I doubt we are dealing with an opportunistic infection. I have discussed the case with Pulmonary Medicine. We will get Rheumatology involved and continue her workup. <ELECTRONICALLY SIGNED> By: Mansoor Pringle MD 11/29/16 0842 [id number] Mansoor Pringle MD /nt
[~2016-11-28 08:44] MED LIST: ACCUNEB SO1.25 MG/1 INH; AMLODIPINE BESY10 MG PO; COZAAR 25MG TAB25 MG PO; GARAMYCIN5 M1 OP; GLUCOPHAGE500 MG PO; LANTUS SUBQ; LEVAQUIN 500 M500 M1 PO; LEVEMIR100 UNIT/1 SUBQ; ONGLYZA5 MG PO; PREDNISONE 10 M10 MG PO; VENTOLIN HFA 1818 GM INH
[2016-11-28 08:56] LABS: ABG SAMPLE TYPE ARTERIAL; BE(vivo) -0.8 mmol/L (-2 to +3); HCO3 22.1 mmol/L (22.0-26.0); LACTATE 1.52 mmol/L (0.5-2.0); O2(CT) 14.2 mL/dL (15.0-23.0); O2Hb 81.6 % (92.0-98.0); PCO2 31.2 mmHg (35.0-45.0); PO2 45.2 mmHg (80.0-100.0); pH 7.468 (7.360-7.450); sO2 84.6 % (92.0-98.0); tCO2 23.1 mmol/L (24.0-30.0)
[2016-11-28 08:57] LABS: STICK SITE R.RADIAL
[2016-11-28 09:18] LABS: HEMATOCRIT 34.9 % (37.0-47.0); HEMOGLOBIN 11.1 gm/dL (12.0-15.0); MCH 24.8 pg (26.0-34.0); MCHC 31.8 g/dL (28.0-37.0); MCV 78.1 fL (80.0-100.0); PLATELET COUNT 280 thou/uL (150-400); RBC 4.46 mil/uL (4.20-5.00); RDW 17.2 % (10.5-14.5); WBC 12.8 thou/uL (4.0-11.0)
[2016-11-28 09:20] LABS: MANUAL DIFF YES
[2016-11-28 09:27] LABS: ANION GAP 11 mmol/L (7-16); BUN 7 mg/dL (7-18); CALCIUM 8.5 mg/dL (8.5-10.1); CHLORIDE 103 mmol/L (98-107); CO2 23 mmol/L (21-32); CREATININE 0.7 mg/dL (0.6-1.3); GLUCOSE 130 mg/dL (70-99); SODIUM 137 mmol/L (136-145)
[2016-11-28 09:35] LABS: APTT 25.9 Seconds (24.5-32.8); INR 1.1; PROTIME 11.3 Seconds (9.3-11.4)
[2016-11-28 09:43] LABS: ALBUMIN 2.4 g/dL (3.4-5.0); ALKALINE PHOSPHATASE 70 U/L (46-116); CK-MB MASS 0.7 ng/mL (<0.5-3.6); MAGNESIUM 1.8 mg/dL (1.8-2.4); NT-PRO BRAIN NAT PEPTIDE 126 pg/mL (<300); SGOT 26 U/L (15-37); SGPT 38 U/L (30-65); TOTAL BILIRUBIN 0.4 mg/dL (<0.1-1.0); TOTAL PROTEIN 6.8 g/dL (6.4-8.2); TROPONIN-I < 0.04 ng/mL (<0.04-0.07)
[2016-11-28 09:43] LABS: URINE BILIRUBIN NEGATIVE (Negative); URINE BLOOD TRACE (Negative); URINE COLOR YELLOW; URINE GLUCOSE-RANDOM* NEGATIVE (Negative); URINE KETONES 2+ (Negative); URINE LEUKOCYTES-REFLEX NEGATIVE (Negative); URINE PROTEIN (DIPSTICK) NEGATIVE (Negative); URINE UROBILINOGEN 0.2 E.U./dl (0.2-1.0)
[2016-11-28 09:58] LABS: ABSOLUTE NEUTROPHILS 11.3 thou/uL (1.4-8.2); ANISOCYTOSIS 1+; MICROCYTES SLIGHT; TOTAL CELL COUNT 100
[2016-11-29] VITALS (18 sets, daily range): BP systolic 116–144; BP diastolic 58–77
[2016-11-29 04:13] LABS: HEMATOCRIT 30.3 % (37.0-47.0); HEMOGLOBIN 9.7 gm/dL (12.0-15.0); MCH 25.4 pg (26.0-34.0); MCHC 32.2 g/dL (28.0-37.0); PLATELET COUNT 234 thou/uL (150-400); RBC 3.83 mil/uL (4.20-5.00); RDW 16.9 % (10.5-14.5); WBC 9.2 thou/uL (4.0-11.0)
[2016-11-29 04:18] LABS: CREATININE 0.6 mg/dL (0.6-1.3); POTASSIUM 4.2 mmol/L (3.5-5.1)
[2016-11-29 04:19] LABS: MANUAL DIFF YES
[2016-11-29 04:40] LABS: ABSOLUTE NEUTROPHILS 8.6 thou/uL (1.4-8.2); ANISOCYTOSIS 1+; TOTAL CELL COUNT 100
[2016-11-29 05:47] LABS: ABG SAMPLE TYPE ARTERIAL; BE(vivo) -4.5 mmol/L (-2 to +3); HCO3 19.4 mmol/L (22.0-26.0); O2(CT) 13.4 mL/dL (15.0-23.0); O2Hb 90.8 % (92.0-98.0); PCO2 31.7 mmHg (35.0-45.0); PO2 61.8 mmHg (80.0-100.0); STICK SITE R.RADIAL; pH 7.405 (7.360-7.450); sO2 92.1 % (92.0-98.0); tCO2 20.4 mmol/L (24.0-30.0)
[2016-11-29 13:10] LABS: ANTI-DNA SCREEN <1 IU/mL (0-9); ANTI-RNP <0.2 AI (0.0-0.9)
[2016-11-29 18:57] LABS: ABG SAMPLE TYPE ARTERIAL; BE(vivo) -4.4 mmol/L (-2 to +3); HCO3 20.3 mmol/L (22.0-26.0); LACTATE 1.36 mmol/L (0.5-2.0); O2(CT) 14.4 mL/dL (15.0-23.0); O2Hb 96.5 % (92.0-98.0); sO2 97.9 % (92.0-98.0); tCO2 21.4 mmol/L (24.0-30.0)
[2016-11-29 18:58] LABS: ABG COMMENT CMV; STICK SITE ALINE; TIDAL VOLUME 500 ml
[2016-11-29 20:10] LABS: GLYCOHEMOGLOBIN (HGB A1C) 8.7 % (4.8-5.6)
[2016-11-30 04:18] LABS: HEMOGLOBIN 9.4 gm/dL (12.0-15.0); MCH 24.7 pg (26.0-34.0); MCHC 31.5 g/dL (28.0-37.0); MCV 78.5 fL (80.0-100.0); PLATELET COUNT 261 thou/uL (150-400); RBC 3.82 mil/uL (4.20-5.00); RDW 17.3 % (10.5-14.5); WBC 12.6 thou/uL (4.0-11.0)
[2016-11-30 04:24] LABS: MANUAL DIFF YES
[2016-11-30 04:26] LABS: CALCIUM 7.9 mg/dL (8.5-10.1); CREATININE 0.6 mg/dL (0.6-1.3); MAGNESIUM 2.4 mg/dL (1.8-2.4); POTASSIUM 4.2 mmol/L (3.5-5.1)
[2016-11-30 05:09] LABS: COMPLEMENT, TOTAL (CH50) > 60 U/mL (42-60)
[2016-11-30 07:27] LABS: ABSOLUTE NEUTROPHILS 11.6 thou/uL (1.4-8.2); TOTAL CELL COUNT 100
[2016-11-30 16:12] LABS: c-ANCA <1:20 titer (Neg:<1:20); p-ANCA <1:20 titer (Neg:<1:20)
[2016-11-30 16:44] VITALS: BP 122/71
[2016-11-30 21:31] LABS: ABG SAMPLE TYPE ARTERIAL; BE(vivo) -2.6 mmol/L (-2 to +3); HCO3 21.2 mmol/L (22.0-26.0); LACTATE 1.24 mmol/L (0.5-2.0); O2(CT) 14.7 mL/dL (15.0-23.0); O2Hb 96.8 % (92.0-98.0); PCO2 32.9 mmHg (35.0-45.0); PO2 106.1 mmHg (80.0-100.0); STICK SITE LINE; pH 7.426 (7.360-7.450); tCO2 22.2 mmol/L (24.0-30.0)
[2016-12-01 02:55] LABS: HEMATOCRIT 30.6 % (37.0-47.0); HEMOGLOBIN 9.9 gm/dL (12.0-15.0); MCH 25.2 pg (26.0-34.0); MCHC 32.4 g/dL (28.0-37.0); MCV 77.6 fL (80.0-100.0); PLATELET COUNT 268 thou/uL (150-400); RBC 3.94 mil/uL (4.20-5.00); RDW 17.4 % (10.5-14.5); WBC 10.9 thou/uL (4.0-11.0)
[2016-12-01 02:57] LABS: MANUAL DIFF YES
[2016-12-01 03:03] LABS: CALCIUM 7.8 mg/dL (8.5-10.1); CREATININE 0.6 mg/dL (0.6-1.3); MAGNESIUM 2.5 mg/dL (1.8-2.4); POTASSIUM 3.5 mmol/L (3.5-5.1)
[2016-12-01 04:30] LABS: ABSOLUTE NEUTROPHILS 10.5 thou/uL (1.4-8.2); ANISOCYTOSIS 1+; LARGE PLATELETS RARE; TOTAL CELL COUNT 100
[2016-12-01 05:44] LABS: ABG SAMPLE TYPE ARTERIAL; LACTATE 1.13 mmol/L (0.5-2.0); O2(CT) 14.3 mL/dL (15.0-23.0); O2Hb 93.2 % (92.0-98.0); PCO2 34.8 mmHg (35.0-45.0); PO2 70.8 mmHg (80.0-100.0); pH 7.419 (7.360-7.450); sO2 94.7 % (92.0-98.0); tCO2 23.1 mmol/L (24.0-30.0)
[2016-12-01 05:45] LABS: Face Shield 80 %; STICK SITE LINE
[2016-12-01 08:24] VITALS: BP 146/82
[2016-12-01 19:39] VITALS: BP 153/78
[2016-12-01 20:10] LABS: ASPERGILLUS IGE <0.10 kU/L (Class 0); BERMUDA GRASS 0.11 kU/L (Class 0/I); BOXELDER/MAPLE <0.10 kU/L (Class 0); CAT <0.10 kU/L (Class 0); CLADOSPORIUM <0.10 kU/L (Class 0); COCKROACH 0.22 kU/L (Class 0/I); D. FARINAE 0.28 kU/L (Class 0/I); D. PTERONYSSINUS 0.32 kU/L (Class I); DOG DANDER 0.89 kU/L (Class II); IgE-ALLERGY PROFILE 694 IU/mL (0-100); MULBERRY IGE <0.10 kU/L (Class 0); NETTLE IGE 0.11 kU/L (Class 0/I); OAK 0.11 kU/L (Class 0/I); PENICILLIUM NOTATUM <0.10 kU/L (Class 0); RUSSIAN THISTLE IGE 0.14 kU/L (Class 0/I); SHEEP SORREL IGE 0.13 kU/L (Class 0/I); SHORT RAGWEED 1.65 kU/L (Class III); TIMOTHY IGE <0.10 kU/L (Class 0)
[2016-12-02] VITALS (21 sets, daily range): BP systolic 147–168; BP diastolic 72–91
[2016-12-02 04:11] LABS: HEMATOCRIT 32.1 % (37.0-47.0); HEMOGLOBIN 10.3 gm/dL (12.0-15.0); PLATELET COUNT 254 thou/uL (150-400); RBC 4.12 mil/uL (4.20-5.00); RDW 17.3 % (10.5-14.5); WBC 8.9 thou/uL (4.0-11.0)
[2016-12-02 04:19] LABS: MANUAL DIFF YES
[2016-12-02 04:32] LABS: CALCIUM 8.1 mg/dL (8.5-10.1); CREATININE 0.6 mg/dL (0.6-1.3)
[2016-12-02 05:03] LABS: ABSOLUTE NEUTROPHILS 8.1 thou/uL (1.4-8.2); TOTAL CELL COUNT 100
[2016-12-02 05:04] LABS: ANISOCYTOSIS 1+
[2016-12-02 05:13] LABS: ABG SAMPLE TYPE ARTERIAL; BE(vivo) -1.5 mmol/L (-2 to +3); Face Shield 95 %; HCO3 22.7 mmol/L (22.0-26.0); LACTATE 1.04 mmol/L (0.5-2.0); O2(CT) 14.7 mL/dL (15.0-23.0); O2Hb 92.2 % (92.0-98.0); PCO2 36.2 mmHg (35.0-45.0); PO2 68.5 mmHg (80.0-100.0); STICK SITE LINE; pH 7.415 (7.360-7.450); sO2 94.1 % (92.0-98.0); tCO2 23.8 mmol/L (24.0-30.0)
[2016-12-02 14:58] LABS: ABG SAMPLE TYPE ARTERIAL; HCO3 23.2 mmol/L (22.0-26.0); LACTATE 1.38 mmol/L (0.5-2.0); O2(CT) 16.8 mL/dL (15.0-23.0); O2Hb 95.2 % (92.0-98.0); PO2 86.3 mmHg (80.0-100.0); pH 7.415 (7.360-7.450); sO2 96.7 % (92.0-98.0); tCO2 24.3 mmol/L (24.0-30.0)
[2016-12-02 15:00] LABS: Pressure Support 8 cm H20; STICK SITE ALINE
[2016-12-03] VITALS (25 sets, daily range): BP systolic 135–172; BP diastolic 70–84
[2016-12-03 04:03] LABS: HEMATOCRIT 34.1 % (37.0-47.0); HEMOGLOBIN 10.9 gm/dL (12.0-15.0); MCH 24.9 pg (26.0-34.0); MCHC 31.9 g/dL (28.0-37.0); MCV 77.8 fL (80.0-100.0); RBC 4.38 mil/uL (4.20-5.00); RDW 17.7 % (10.5-14.5); WBC 8.7 thou/uL (4.0-11.0)
[2016-12-03 04:13] LABS: CALCIUM 8.1 mg/dL (8.5-10.1); CREATININE 0.6 mg/dL (0.6-1.3); POTASSIUM 3.8 mmol/L (3.5-5.1)
[2016-12-04] VITALS (20 sets, daily range): BP systolic 143–176; BP diastolic 72–96
[2016-12-04 04:50] LABS: HEMATOCRIT 33.4 % (37.0-47.0); HEMOGLOBIN 10.6 gm/dL (12.0-15.0); MCH 24.5 pg (26.0-34.0); MCHC 31.8 g/dL (28.0-37.0); MCV 76.9 fL (80.0-100.0); PLATELET COUNT 207 thou/uL (150-400); RBC 4.34 mil/uL (4.20-5.00); RDW 17.5 % (10.5-14.5); WBC 7.8 thou/uL (4.0-11.0)
[2016-12-04 04:53] LABS: MANUAL DIFF YES
[2016-12-04 05:49] LABS: CALCIUM 8.3 mg/dL (8.5-10.1); CREATININE 0.5 mg/dL (0.6-1.3)
[2016-12-04 07:59] LABS: ABSOLUTE NEUTROPHILS 7.4 thou/uL (1.4-8.2); ANISOCYTOSIS 1+; NUCLEATED RBCS 1 /100WBC; TOTAL CELL COUNT 100
[2016-12-05] VITALS (30 sets, daily range): BP systolic 109–183; BP diastolic 63–97
[2016-12-05 05:03] LABS: HEMATOCRIT 33.6 % (37.0-47.0); HEMOGLOBIN 10.8 gm/dL (12.0-15.0); MCH 24.7 pg (26.0-34.0); MCHC 32.1 g/dL (28.0-37.0); PLATELET COUNT 183 thou/uL (150-400); RBC 4.36 mil/uL (4.20-5.00); RDW 17.9 % (10.5-14.5); WBC 11.4 thou/uL (4.0-11.0)
[2016-12-05 05:07] LABS: MANUAL DIFF YES
[2016-12-05 05:22] LABS: CALCIUM 8.6 mg/dL (8.5-10.1); CREATININE 0.5 mg/dL (0.6-1.3); POTASSIUM 3.8 mmol/L (3.5-5.1)
[2016-12-05 08:30] LABS: ABSOLUTE NEUTROPHILS 10.7 thou/uL (1.4-8.2); PLATELET ESTIMATE NORMAL; TOTAL CELL COUNT 100
[2016-12-05 09:19] LABS: ABG SAMPLE TYPE ARTERIAL; BE(vivo) 6.5 mmol/L (-2 to +3); HCO3 30.5 mmol/L (22.0-26.0); LACTATE 1.18 mmol/L (0.5-2.0); O2(CT) 15.3 mL/dL (15.0-23.0); O2Hb 90.1 % (92.0-98.0); PCO2 41.5 mmHg (35.0-45.0); PO2 60.6 mmHg (80.0-100.0); pH 7.484 (7.360-7.450); sO2 92.9 % (92.0-98.0); tCO2 31.8 mmol/L (24.0-30.0)
[2016-12-05 09:21] LABS: STICK SITE R.RADIAL
[2016-12-05 11:24] LABS: ABG SAMPLE TYPE ARTERIAL; BE(vivo) 1.5 mmol/L (-2 to +3); HCO3 27.9 mmol/L (22.0-26.0); LACTATE 1.49 mmol/L (0.5-2.0); O2(CT) 14.8 mL/dL (15.0-23.0); O2Hb 91.6 % (92.0-98.0); PCO2 51.9 mmHg (35.0-45.0); PO2 75.1 mmHg (80.0-100.0); pH 7.348 (7.360-7.450); sO2 94.2 % (92.0-98.0); tCO2 29.5 mmol/L (24.0-30.0)
[2016-12-05 11:26] LABS: ABG COMMENT POST INTUBATION; STICK SITE R.RADIAL; TIDAL VOLUME 400 ml
[2016-12-06] VITALS (24 sets, daily range): BP systolic 126–163; BP diastolic 59–78
[2016-12-06 06:03] LABS: HEMOGLOBIN 9.4 gm/dL (12.0-15.0); MCH 25.4 pg (26.0-34.0); MCHC 32.3 g/dL (28.0-37.0); MCV 78.4 fL (80.0-100.0); RBC 3.7 mil/uL (4.20-5.00); RDW 17.9 % (10.5-14.5); WBC 8.6 thou/uL (4.0-11.0)
[2016-12-06 06:26] LABS: POTASSIUM 3.9 mmol/L (3.5-5.1)
[2016-12-06 07:41] LABS: ABG SAMPLE TYPE ARTERIAL; BE(vivo) 3.6 mmol/L (-2 to +3); HCO3 28.4 mmol/L (22.0-26.0); LACTATE 1.65 mmol/L (0.5-2.0); O2(CT) 14.8 mL/dL (15.0-23.0); O2Hb 97.8 % (92.0-98.0); PCO2 44.4 mmHg (35.0-45.0); PO2 298.3 mmHg (80.0-100.0); pH 7.424 (7.360-7.450); sO2 99.7 % (92.0-98.0); tCO2 29.8 mmol/L (24.0-30.0)
[2016-12-06 07:42] LABS: STICK SITE L.RADIAL; TIDAL VOLUME 400 ml
[2016-12-06 07:46] LABS: CREATININE 0.5 mg/dL (0.6-1.3)
[2016-12-06 07:47] LABS: CALCIUM 7.4 mg/dL (8.5-10.1)
[2016-12-07] VITALS (24 sets, daily range): BP systolic 126–165; BP diastolic 56–73
[2016-12-07 04:24] LABS: HEMATOCRIT 26.8 % (37.0-47.0); HEMOGLOBIN 8.8 gm/dL (12.0-15.0); MCH 25.6 pg (26.0-34.0); MCHC 32.9 g/dL (28.0-37.0); MCV 77.8 fL (80.0-100.0); RBC 3.45 mil/uL (4.20-5.00); WBC 9.9 thou/uL (4.0-11.0)
[2016-12-07 04:47] LABS: POTASSIUM 4.3 mmol/L (3.5-5.1)
[2016-12-07 05:37] LABS: CREATININE 0.5 mg/dL (0.6-1.3); MAGNESIUM 2.5 mg/dL (1.8-2.4)
[2016-12-07 11:08] LABS: % SATURATION 37 % (20-39); IRON 55 ug/dL (50-170); TIBC 149 ug/dL (250-450); UIBC 94 ug/dL
[2016-12-07 11:27] LABS: OBSERVED RETIC COUNT 2.57 % (0.6-2.6)
[2016-12-08] VITALS (24 sets, daily range): BP systolic 120–162; BP diastolic 55–95
[2016-12-08 04:26] LABS: HEMATOCRIT 27.9 % (37.0-47.0); HEMOGLOBIN 8.9 gm/dL (12.0-15.0); MCHC 31.9 g/dL (28.0-37.0); MCV 78.4 fL (80.0-100.0); RBC 3.56 mil/uL (4.20-5.00); RDW 17.6 % (10.5-14.5); WBC 13.5 thou/uL (4.0-11.0)
[2016-12-08 04:34] LABS: CREATININE 0.4 mg/dL (0.6-1.3); POTASSIUM 3.7 mmol/L (3.5-5.1)
[2016-12-09] VITALS (22 sets, daily range): BP systolic 129–161; BP diastolic 61–78
[2016-12-09 04:49] LABS: HEMATOCRIT 24.6 % (37.0-47.0); MCH 25.4 pg (26.0-34.0); MCHC 32.6 g/dL (28.0-37.0); MCV 77.9 fL (80.0-100.0); PLATELET COUNT 244 thou/uL (150-400); RBC 3.16 mil/uL (4.20-5.00); RDW 18.1 % (10.5-14.5)
[2016-12-09 04:53] LABS: MANUAL DIFF YES
[2016-12-09 05:01] LABS: ABG SAMPLE TYPE ARTERIAL; HCO3 30.8 mmol/L (22.0-26.0); LACTATE 0.67 mmol/L (0.5-2.0); O2Hb 91.7 % (92.0-98.0); PCO2 52.8 mmHg (35.0-45.0); pH 7.384 (7.360-7.450); tCO2 32.4 mmol/L (24.0-30.0)
[2016-12-09 05:02] LABS: STICK SITE R.RADIAL; TIDAL VOLUME 400 ml
[2016-12-09 05:06] LABS: CALCIUM 7.8 mg/dL (8.5-10.1); CREATININE 0.5 mg/dL (0.6-1.3)
[2016-12-09 05:19] LABS: POTASSIUM 3.9 mmol/L (3.5-5.1)
[2016-12-09 05:52] LABS: ABSOLUTE NEUTROPHILS 10.5 thou/uL (1.4-8.2); ANISOCYTOSIS 2+; MACROCYTES 1+; MICROCYTES 1+; TOTAL CELL COUNT 100
[2016-12-09 10:30] LABS: APTT 24.3 Seconds (24.5-32.8); INR 1.1; PROTIME 11.4 Seconds (9.3-11.4)
[2016-12-09 14:34] LABS: HEMATOCRIT 24.7 % (37.0-47.0); MCH 24.9 pg (26.0-34.0); MCHC 32.5 g/dL (28.0-37.0); MCV 76.7 fL (80.0-100.0); RBC 3.22 mil/uL (4.20-5.00); RDW 18.4 % (10.5-14.5); WBC 11.7 thou/uL (4.0-11.0)
[2016-12-10] VITALS (25 sets, daily range): BP systolic 126–160; BP diastolic 60–133
[2016-12-10 04:38] LABS: HEMATOCRIT 23.5 % (37.0-47.0); HEMOGLOBIN 7.5 gm/dL (12.0-15.0); MCH 24.9 pg (26.0-34.0); MCHC 31.9 g/dL (28.0-37.0); MCV 78.2 fL (80.0-100.0); PLATELET COUNT 276 thou/uL (150-400); RDW 17.8 % (10.5-14.5); WBC 10.5 thou/uL (4.0-11.0)
[2016-12-10 04:42] LABS: MANUAL DIFF YES
[2016-12-10 04:48] LABS: CALCIUM 7.6 mg/dL (8.5-10.1); CREATININE 0.5 mg/dL (0.6-1.3); POTASSIUM 3.9 mmol/L (3.5-5.1)
[2016-12-10 07:17] LABS: ABSOLUTE NEUTROPHILS 9.9 thou/uL (1.4-8.2); METAMYELOCYTES 1 %; MYELOCYTES 1 %; TOTAL CELL COUNT 100
[2016-12-10 07:19] LABS: ANISOCYTOSIS 1+; HYPOCHROMASIA 1+; POLYCHROMASIA OCCASIONAL
[2016-12-10 12:31] LABS: DIL. RUSSELL VIPER VENOM 54.4 sec (0.0-44.0); HEX. PHASE PHOSPHOLIPID 6 sec (0-11)
[2016-12-11] VITALS (26 sets, daily range): BP systolic 129–183; BP diastolic 59–94
[2016-12-11 05:28] LABS: HEMATOCRIT 25.7 % (37.0-47.0); HEMOGLOBIN 8.1 gm/dL (12.0-15.0); MCHC 31.7 g/dL (28.0-37.0); MCV 78.8 fL (80.0-100.0); RBC 3.26 mil/uL (4.20-5.00); RDW 18.1 % (10.5-14.5); WBC 13.9 thou/uL (4.0-11.0)
[2016-12-11 05:36] LABS: CALCIUM 7.7 mg/dL (8.5-10.1); CREATININE 0.4 mg/dL (0.6-1.3); POTASSIUM 3.9 mmol/L (3.5-5.1)
[2016-12-11 13:12] LABS: BETA-2 GLYCOPROTEIN IGG < 9 (0-20); BETA-2 GLYCOPROTEIN IGM < 9 (0-32)
[2016-12-12] VITALS (29 sets, daily range): BP systolic 128–174; BP diastolic 60–106
[2016-12-12 05:12] LABS: HEMATOCRIT 25.3 % (37.0-47.0); HEMOGLOBIN 8.1 gm/dL (12.0-15.0); MCH 24.9 pg (26.0-34.0); MCHC 31.9 g/dL (28.0-37.0); MCV 78.1 fL (80.0-100.0); RBC 3.24 mil/uL (4.20-5.00); RDW 18.1 % (10.5-14.5); WBC 14.5 thou/uL (4.0-11.0)
[2016-12-12 05:26] LABS: CALCIUM 7.6 mg/dL (8.5-10.1); CREATININE 0.3 mg/dL (0.6-1.3); POTASSIUM 3.9 mmol/L (3.5-5.1)
[2016-12-12 17:44] LABS: URINE BLOOD 3+ (Negative); URINE COLOR RED; URINE GLUCOSE-RANDOM* NEGATIVE (Negative); URINE KETONES NEGATIVE (Negative); URINE LEUKOCYTES-REFLEX TRACE (Negative); URINE PROTEIN (DIPSTICK) 1+ (Negative); URINE SPECIFIC GRAVITY <= 1.005 (1.003-1.035); URINE UROBILINOGEN 0.2 E.U./dl (0.2-1.0)
[2016-12-12 17:47] LABS: ICTOTEST (BILI CONFIRMATORY) Negative (Negative); URINE BILIRUBIN NEGATIVE (Negative)
[2016-12-12 17:53] LABS: CASTS None Seen /LPF (None Seen); CRYSTALS None Seen /LPF (None Seen); SQUAMOUS None Seen /LPF (0-3); URINE RBC >20 Many /HPF (0-2); URINE WBC-REFLEX 0-5 Rare /HPF (0-5); YEAST-REFLEX Present (None Seen)
[2016-12-13] VITALS (25 sets, daily range): BP systolic 123–188; BP diastolic 57–91
[2016-12-13 05:05] LABS: ALBUMIN 1.8 g/dL (3.4-5.0); CALCIUM 7.8 mg/dL (8.5-10.1); CREATININE 0.4 mg/dL (0.6-1.3); MAGNESIUM 2.2 mg/dL (1.8-2.4); PHOSPHORUS 3.6 mg/dL (2.5-4.9); POTASSIUM 3.4 mmol/L (3.5-5.1); TOTAL BILIRUBIN 0.3 mg/dL (<0.1-1.0); TOTAL PROTEIN 5.5 g/dL (6.4-8.2)
[2016-12-13 09:19] LABS: HEMATOCRIT 25.2 % (37.0-47.0); MCH 25.1 pg (26.0-34.0); MCHC 31.8 g/dL (28.0-37.0); PLATELET COUNT 345 thou/uL (150-400); RBC 3.19 mil/uL (4.20-5.00); RDW 18.5 % (10.5-14.5); WBC 15.6 thou/uL (4.0-11.0)
[2016-12-13 09:23] LABS: MANUAL DIFF YES
[2016-12-13 10:17] LABS: ABSOLUTE NEUTROPHILS 14.8 thou/uL (1.4-8.2); METAMYELOCYTES 2 %; TOTAL CELL COUNT 100
[2016-12-13 10:19] LABS: BURR CELLS 2+
[2016-12-13 11:14] LABS: ANISOCYTOSIS 2+
[2016-12-13 11:15] LABS: POLYCHROMASIA OCCASIONAL
[2016-12-13 12:05] LABS: ABG SAMPLE TYPE ARTERIAL; BE(vivo) 5.5 mmol/L (-2 to +3); HCO3 29.3 mmol/L (22.0-26.0); LACTATE 1.01 mmol/L (0.5-2.0); O2(CT) 11.3 mL/dL (15.0-23.0); O2Hb 94.6 % (92.0-98.0); PCO2 39.6 mmHg (35.0-45.0); PO2 83.5 mmHg (80.0-100.0); pH 7.487 (7.360-7.450); sO2 96.9 % (92.0-98.0); tCO2 30.5 mmol/L (24.0-30.0)
[2016-12-13 12:06] LABS: STICK SITE R.RADIAL
[2016-12-13 12:07] LABS: ABG COMMENT CPAP; Pressure Support 8 cm H20; TIDAL VOLUME 545 ml
[2016-12-13 15:52] LABS: ABG SAMPLE TYPE ARTERIAL; BE(vivo) 8.3 mmol/L (-2 to +3); Face Shield 60 %; HCO3 30.6 mmol/L (22.0-26.0); LACTATE 1.79 mmol/L (0.5-2.0); O2(CT) 12.9 mL/dL (15.0-23.0); O2Hb 92.3 % (92.0-98.0); PCO2 33.9 mmHg (35.0-45.0); STICK SITE R.RADIAL; pH 7.574 (7.360-7.450); sO2 94.8 % (92.0-98.0); tCO2 31.7 mmol/L (24.0-30.0)
[2016-12-14] VITALS (23 sets, daily range): BP systolic 133–164; BP diastolic 62–85
[2016-12-14 04:42] LABS: HEMATOCRIT 22.4 % (37.0-47.0); HEMOGLOBIN 7.1 gm/dL (12.0-15.0); MANUAL DIFF YES; MCH 24.9 pg (26.0-34.0); MCHC 31.7 g/dL (28.0-37.0); MCV 78.6 fL (80.0-100.0); PLATELET COUNT 251 thou/uL (150-400); RBC 2.84 mil/uL (4.20-5.00); RDW 18.8 % (10.5-14.5); WBC 11.7 thou/uL (4.0-11.0)
[2016-12-14 04:51] LABS: CALCIUM 7.8 mg/dL (8.5-10.1); CREATININE 0.4 mg/dL (0.6-1.3); PHOSPHORUS 3.3 mg/dL (2.5-4.9); POTASSIUM 3.6 mmol/L (3.5-5.1)
[2016-12-14 05:12] LABS: ABG SAMPLE TYPE ARTERIAL; BE(vivo) 6.7 mmol/L (-2 to +3); HCO3 30.9 mmol/L (22.0-26.0); LACTATE 0.81 mmol/L (0.5-2.0); O2(CT) 11.1 mL/dL (15.0-23.0); O2Hb 97.3 % (92.0-98.0); PCO2 43.1 mmHg (35.0-45.0); PO2 168.2 mmHg (80.0-100.0); pH 7.474 (7.360-7.450); sO2 99.2 % (92.0-98.0); tCO2 32.3 mmol/L (24.0-30.0)
[2016-12-14 05:13] LABS: ABG COMMENT BIPAP14/6 10 50%; Pressure Support 14 cm H20; STICK SITE RRA
[2016-12-14 05:37] LABS: ABSOLUTE NEUTROPHILS 10.6 thou/uL (1.4-8.2); ANISOCYTOSIS 2+; BLASTS 1 %; MACROCYTES 1+; METAMYELOCYTES 1 %; MICROCYTES 1+; TOTAL CELL COUNT 100
[2016-12-15] VITALS (20 sets, daily range): BP systolic 134–173; BP diastolic 60–91
[2016-12-15 05:06] LABS: HEMATOCRIT 23.7 % (37.0-47.0); HEMOGLOBIN 7.6 gm/dL (12.0-15.0); MCH 25.1 pg (26.0-34.0); MCHC 32.2 g/dL (28.0-37.0); MCV 77.8 fL (80.0-100.0); PLATELET COUNT 259 thou/uL (150-400); RBC 3.05 mil/uL (4.20-5.00); RDW 18.9 % (10.5-14.5); WBC 13.7 thou/uL (4.0-11.0)
[2016-12-15 05:08] LABS: MANUAL DIFF YES
[2016-12-15 05:35] LABS: ABSOLUTE NEUTROPHILS 12.9 thou/uL (1.4-8.2); TOTAL CELL COUNT 100
[2016-12-15 05:36] LABS: ANISOCYTOSIS 3+; HYPOCHROMASIA 1+; MICROCYTES 1+; POLYCHROMASIA 1+
[2016-12-16] VITALS (20 sets, daily range): BP systolic 128–159; BP diastolic 55–74
[2016-12-16 05:06] LABS: HEMATOCRIT 23.2 % (37.0-47.0); HEMOGLOBIN 7.4 gm/dL (12.0-15.0); MCH 25.2 pg (26.0-34.0); MCHC 31.6 g/dL (28.0-37.0); MCV 79.6 fL (80.0-100.0); PLATELET COUNT 237 thou/uL (150-400); RBC 2.92 mil/uL (4.20-5.00)
[2016-12-16 05:07] LABS: MANUAL DIFF YES
[2016-12-16 05:28] LABS: CREATININE 0.4 mg/dL (0.6-1.3); POTASSIUM 4.3 mmol/L (3.5-5.1)
[2016-12-16 06:08] LABS: ABSOLUTE NEUTROPHILS 14.6 thou/uL (1.4-8.2); ANISOCYTOSIS 2+; MACROCYTES 1+; MICROCYTES 1+; POLYCHROMASIA 1+; TOTAL CELL COUNT 100
[2016-12-17] VITALS (10 sets, daily range): BP systolic 117–161; BP diastolic 59–82
[2016-12-17 04:33] LABS: HEMATOCRIT 23.9 % (37.0-47.0); HEMOGLOBIN 7.6 gm/dL (12.0-15.0); MCHC 31.6 g/dL (28.0-37.0); MCV 79.2 fL (80.0-100.0); PLATELET COUNT 221 thou/uL (150-400); RBC 3.02 mil/uL (4.20-5.00); RDW 19.5 % (10.5-14.5); WBC 19.5 thou/uL (4.0-11.0)
[2016-12-17 04:49] LABS: ALBUMIN 1.9 g/dL (3.4-5.0); CALCIUM 8.1 mg/dL (8.5-10.1); CREATININE 0.5 mg/dL (0.6-1.3); PHOSPHORUS 3.8 mg/dL (2.5-4.9); POTASSIUM 4.1 mmol/L (3.5-5.1); TOTAL BILIRUBIN 0.3 mg/dL (<0.1-1.0); TOTAL PROTEIN 5.3 g/dL (6.4-8.2)
[2016-12-17 04:57] LABS: MANUAL DIFF YES
[2016-12-17 05:45] LABS: ABSOLUTE NEUTROPHILS 18.1 thou/uL (1.4-8.2); ANISOCYTOSIS 2+; MACROCYTES 1+; MICROCYTES 1+; TOTAL CELL COUNT 100
[2016-12-17 05:46] LABS: POLYCHROMASIA 1+
[2016-12-18] VITALS (7 sets, daily range): BP systolic 130–143; BP diastolic 66–77
[2016-12-18 04:49] LABS: HEMATOCRIT 23.3 % (37.0-47.0); HEMOGLOBIN 7.5 gm/dL (12.0-15.0); MANUAL DIFF YES; MCH 25.6 pg (26.0-34.0); MCHC 32.4 g/dL (28.0-37.0); MCV 78.8 fL (80.0-100.0); PLATELET COUNT 193 thou/uL (150-400); RBC 2.95 mil/uL (4.20-5.00); RDW 19.8 % (10.5-14.5); WBC 16.3 thou/uL (4.0-11.0)
[2016-12-18 04:56] LABS: ALBUMIN 1.9 g/dL (3.4-5.0); CALCIUM 8.4 mg/dL (8.5-10.1); CREATININE 0.4 mg/dL (0.6-1.3); DIRECT BILIRUBIN 0.1 mg/dL (<0.1-0.3); PHOSPHORUS 3.9 mg/dL (2.5-4.9); POTASSIUM 4.3 mmol/L (3.5-5.1); TOTAL BILIRUBIN 0.4 mg/dL (<0.1-1.0); TOTAL PROTEIN 5.5 g/dL (6.4-8.2)
[2016-12-18 05:34] LABS: ABSOLUTE NEUTROPHILS 15.5 thou/uL (1.4-8.2); ANISOCYTOSIS 2+; MACROCYTES 1+; MICROCYTES 1+; TOTAL CELL COUNT 100
[2016-12-18 05:35] LABS: POLYCHROMASIA 2+
[2016-12-19 04:44] LABS: HEMATOCRIT 23.7 % (37.0-47.0); HEMOGLOBIN 7.6 gm/dL (12.0-15.0); MCH 25.9 pg (26.0-34.0); MCHC 32.3 g/dL (28.0-37.0); MCV 80.1 fL (80.0-100.0); PLATELET COUNT 166 thou/uL (150-400); RBC 2.95 mil/uL (4.20-5.00); RDW 21.4 % (10.5-14.5); WBC 13.3 thou/uL (4.0-11.0)
[2016-12-19 04:48] LABS: MANUAL DIFF YES
[2016-12-19 04:56] LABS: ALBUMIN 1.9 g/dL (3.4-5.0); ALKALINE PHOSPHATASE 76 U/L (46-116); ANION GAP 5 mmol/L (7-16); BUN 23 mg/dL (7-18); CALCIUM 8.2 mg/dL (8.5-10.1); CHLORIDE 105 mmol/L (98-107); CO2 28 mmol/L (21-32); CREATININE 0.4 mg/dL (0.6-1.3); DIRECT BILIRUBIN < 0.1 mg/dL (<0.1-0.3); GLUCOSE 145 mg/dL (70-99); MAGNESIUM 1.9 mg/dL (1.8-2.4); POTASSIUM 3.9 mmol/L (3.5-5.1); SGOT 45 U/L (15-37); SGPT 239 U/L (30-65); SODIUM 138 mmol/L (136-145); TOTAL BILIRUBIN 0.3 mg/dL (<0.1-1.0); TOTAL PROTEIN 5.4 g/dL (6.4-8.2)
[2016-12-19 05:17] LABS: ABSOLUTE NEUTROPHILS 12.6 thou/uL (1.4-8.2); ANISOCYTOSIS 2+; HYPOCHROMASIA 1+; MACROCYTES 1+; MICROCYTES 1+; POLYCHROMASIA 2+; TOTAL CELL COUNT 100
[2016-12-19 07:37] VITALS: BP 131/62
[2016-12-19 12:30] VITALS: BP 131/71
[2016-12-19] MEDS ORDERED: ENOXAPARIN100 MG/11 SUBQ (14:55)
[2016-12-19] MEDS ORDERED: LOPRESSOR25 PO (14:55)
[2016-12-19] MEDS ORDERED: BENAZEPRIL HCL10 MG PO (14:55)
[2016-12-19] MEDS ORDERED: FENTANYL 0.50 MCG/ML IV PUSH (14:55)
[2016-12-19] MEDS ORDERED: COUMADIN7.5 MG PO (14:55)
[2016-12-19] MEDS ORDERED: FUROSEMIDE20 MG/2 ML IV PUSH (14:56)
[2016-12-19] MEDS ORDERED: GABAPENTIN 100100 MG PO (14:56)
[2016-12-19] MEDS ORDERED: LACTULOSE10 GM/153 PO (14:56)
[2016-12-19] MEDS ORDERED: ACETAMINOPHEN325 M1 PO (14:56)
[2016-12-19] MEDS ORDERED: MIRALAX17 GM PER TUBE (14:58)
[2016-12-19] MEDS ORDERED: LANTUSSOLASTAR SUBQ (14:58)
[2016-12-19] MEDS ORDERED: PEDIA-LAX50 MG/15 M PO (14:58)
[2016-12-19] MEDS ORDERED: PANTOPRAZOLE SO40 M1 PO (14:58)
[2016-12-19] MEDS ORDERED: SOLU-MEDRO125 MG/24 IV PUSH (14:58)
[2016-12-19] MEDS ORDERED: HUMALOG100 UNIT/1 SUBQ (14:59)
== END 2016-12-19 17:07 | DRG 207 ==
LOC: ER 08:44 → ICU 09:44 → EROBS 09:44 → ICU 11:14 → 2N 12-18 17:26
PROVIDERS: Emergency Medicine; Family Medicine; Hospitalist; Internal Medicine; Internal Medicine Gastroenterology; Internal Medicine Geriatric Medicine; Internal Medicine Hematology & Oncology; Internal Medicine Pulmonary Disease; Nurse Practitioner; Nurse Practitioner Acute Care; Specialist
PROC: 3E0336Z Introduction of Nutritional Substance into Peripheral Vein, Percutaneous Approach (ICD-10-PCS; principal; 2016-11-28)
PROC: 02HV33Z Insertion of Infusion Device into Superior Vena Cava, Percutaneous Approach (ICD-10-PCS; 2016-11-28)
PROC: B548ZZA Ultrasonography of Superior Vena Cava, Guidance (ICD-10-PCS; 2016-11-28)
PROC: 0BB Respiratory System, Excision (ICD-10-PCS; 2016-11-29)
PROC: 0BB Respiratory System, Excision (ICD-10-PCS; 2016-11-29)
PROC: 5A09357 Assistance with Respiratory Ventilation, Less than 24 Consecutive Hours, Continuous Positive Airway Pressure (ICD-10-PCS; 2016-11-29)
PROC: 5A1955Z Respiratory Ventilation, Greater than 96 Consecutive Hours (ICD-10-PCS; 2016-11-29)
PROC: 0BJ08ZZ Inspection of Tracheobronchial Tree, Via Natural or Artificial Opening Endoscopic (ICD-10-PCS; 2016-11-29)
PROC: 0BH17EZ Insertion of Endotracheal Airway into Trachea, Via Natural or Artificial Opening (ICD-10-PCS; 2016-12-05)
DX: J84.116 Cryptogenic organizing pneumonia (principal); J96.01 Acute respiratory failure with hypoxia; G72.81 Critical illness myopathy; E46 Unspecified protein-calorie malnutrition; K56.7 Ileus, unspecified; I10 Essential (primary) hypertension; R00.0 Tachycardia, unspecified; E11.65 Type 2 diabetes mellitus with hyperglycemia; T38.0X5A Adverse effect of glucocorticoids and synthetic analogues, initial encounter; D64.9 Anemia, unspecified; K59.00 Constipation, unspecified; R91.8 Other nonspecific abnormal finding of lung field; E88.09 Other disorders of plasma-protein metabolism, not elsewhere classified; R53.81 Other malaise; R59.0 Localized enlarged lymph nodes; E66.09 Other obesity due to excess calories; Y83.8 Other surgical procedures as the cause of abnormal reaction of the patient, or of later complication, without mention of misadventure at the time of the procedure; Y92.238 Other place in hospital as the place of occurrence of the external cause; Z79.4 Long term (current) use of insulin; Z87.01 Personal history of pneumonia (recurrent); Y92.89 Other specified places as the place of occurrence of the external cause; Z79.899 Other long term (current) drug therapy; Z68.35 Body mass index [BMI] 35.0-35.9, adult; Z83.3 Family history of diabetes mellitus; Z90.49 Acquired absence of other specified parts of digestive tract
CPT/HCPCS: 10078; 10081; 27000; 50101; 50386; 50417; 50455; 50497; 50739; 50740; 52265; 54118; 56524; 56526; 56531; 62110; 62900

== ENCOUNTER 2016-12-28 09:11 | Inpatient (IN) | payer OTHER ==
[2016-12-28] VITALS (14 sets, daily range): BP systolic 112–176; BP diastolic 56–86
[~2016-12-28] VITALS: Ht 167.6 cm; Wt 91.7 kg
--- NOTE | ~2016-12-28 | HC ---
[facility] [address] CONSULTATION Name: JOSE CARLOSZaneCELY Room #: 244-P ADM IN M.R.#: [id number] Admission: 12/28/16 Attend Phys: Dameon Mendes MD Discharge: Date of : 63 Report #: [id number] THIS REPORT FOR: //name// CC: Julio Cesar Mendes REASON FOR CONSULTATION: I was asked to evaluate concerning bilateral pulmonary infiltrates and respiratory failure. HISTORY OF PRESENT ILLNESS: The patient is known to me from her previous hospitalization where she was hospitalized on 11/28/2016 through 12/19/2016, with a diagnosis of bilateral pulmonary infiltrates. Open lung biopsy confirmed bronchiolitis obliterans. Cultures were negative from her lung biopsy on 11/29/2016. AFB and fungus cultures are negative to date, but not yet final. She was on high dose corticosteroids. Then transferred to [facility] where she developed worsening respiratory compromise with minimal sputum production. No documented fever, chills, or sweats. Now on BiPAP. No gross aspiration episodes. No hemoptysis. She is now back on high dose corticosteroids. She is also started back up on antibiotic therapy, now including Zosyn. PAST MEDICAL HISTORY: Cholecystectomy, diabetes, and hypertension. She is a nonsmoker, no significant alcohol intake. ALLERGIES: None. MEDICATIONS: As noted on NOV, now on Solu-Medrol and Zosyn. FAMILY HISTORY: Noncontributory. SOCIAL HISTORY: As above. REVIEW OF SYSTEMS: No nausea, vomiting, diarrhea, or dysuria. No rash or decubiti. PHYSICAL EXAMINATION: VITAL SIGNS: She is afebrile, hemodynamically stable. GENERAL: She was alert and cooperative, on BiPAP. IV site was unremarkable. LUNGS: Coarse posteriorly with crackles. HEART: Regular without murmur. ABDOMEN: Soft, nontender, no hepatosplenomegaly or mass. EXTREMITIES: Unremarkable. LABORATORY STUDIES: Sodium 142, potassium 3.7, bicarbonate 31, creatinine 0.5, ALT 239, albumin 1.9. INR 1.6. Hemoglobin 7.4, white count 5.5, and platelet count 123,000. Sputum cultures, not received. Blood cultures are pending. Chest x-ray, extensive infiltrates bilaterally. [address] [address] CONSULTATION Name: CELY TIPTON Room #: 244-P ADM IN .R.#: [id number] Admission: 12/28/16 Attend Phys: Dameon Mendes MD Discharge: Date of : 63 Report #: [id number] IMPRESSION: A 51-year-old with respiratory failure, bilateral pulmonary infiltrates, right greater than left. Underlying bronchiolitis obliterans organizing pneumonia, so far no secondary infection has been identified. I agree with her current approach with antibiotic therapy and increase immunosuppression. She appears to have failed a steroid taper. alternative immunosuppressive agent. In the meantime, we will obtain a sputum culture. We will screen methicillin-resistant Staphylococcus aureus and continue with vancomycin and Zosyn. <ELECTRONICALLY SIGNED> By: Mansoor Pringle MD 01/01/17 1530 0958 1028 Mansoor Pringle MD /nt
--- NOTE | ~2016-12-28 | P ---
[facility] [place] [address] PROCEDURE REPORT Name: CELY TIPTON Room #: 244-P [facility] IN M.R.#: [id number] Admission: 12/28/16 Attend Phys: Dameon Mendes MD Discharge: 01/03/17 Date of : 63 Report #: [id number] THIS REPORT FOR: //name// CC: Julio Cesar Mendes DATE OF SERVICE: 01/01/2017 PROCEDURE: Left radial arterial catheter insertion. INDICATION: Hypoxemic respiratory failure, need for frequent lab draws and arterial blood gas testing in the patient with refractory hypoxemia. PROCEDURE NOTATION: The left radial arterial line site was chosen. It was cleansed with 2% chlorhexidine gluconate. A sterile field was created using sterile pads and using sterile technique and the 20-gauge Arrow catheter kit, the left radial artery was accessed on the second attempt without difficulty. The catheter was inserted easily and connected to a pressure transducer. Good waveform was noted. The line was flushed and aspirated easily, sutured in place with 3-0 silk and covered with clear OpSite. No complications during the procedure. The patient tolerated it well. <ELECTRONICALLY SIGNED> By: Ty Spann MD 01/07/17 1807 0941 1307 Ty Spann MD /nt
--- NOTE | ~2016-12-28 | EKG ---
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 WANG : 1965 Requested By: Sussy Lamb Order Number: [id number] MD: Noah Vargas Measurements Intervals Isabel Rate: 93 P: -6 [place]: 64 QRS: 14 QRSD: 76 T: 81 QT: 327 QTc: 407 Interpretive Statements Sinus rhythm Short [place] interval Left ventricular hypertrophy Compared to ECG 11/30/2016 19:59:51 Short [place] interval now present Left ventricular hypertrophy now present Electronically Signed On 12-28-2016 13:40:11 CDT by Noah Vargas [email or web address] <ELECTRONICALLY SIGNED> By: Noah Vargas MD 12/28/16 1340 5 5 Noah Vargas MD /RITA
--- NOTE | ~2016-12-28 | P ---
[facility] [place] [address] PROCEDURE REPORT Name: CELY TIPTON Room #: 244-P [facility] IN M.R.#: [id number] Admission: 12/28/16 Attend Phys: Dameon Mendes MD Discharge: 01/03/17 Date of : 63 Report #: [id number] THIS REPORT FOR: //name// CC: Julio Cesar Mendes DATE OF SERVICE: 01/01/2017 PROCEDURE: Endotracheal intubation emergently. INDICATION: Refractory hypoxemic respiratory failure despite high pressures with BiPAP. PROCEDURE NOTATION: Called to the bedside due to worsening hypoxemia. The patient's oxygen saturation between 80% and 85% despite being on BiPAP 20/10 and an FiO2 of over 100%. Full face mask Interface and minute volume of roughly 30 liters. The patient in obvious respiratory distress. The patient had been reluctant to allow intubation. Discussed with her again this morning. Informed her of her dire status and after a lengthy discussion, the patient was agreeable to intubate. The patient wrote note to me, although unable to speak, asking how long and I informed her we are uncertain how long, but obviously she did not want a prolonged trial supportive care. Intubation equipment brought to the bedside. The patient was saturating 83% before sedation and paralysis. The patient then given 30 mg of etomidate and 100 mg of succinylcholine and then placed on bag mask ventilation with 10 of PEEP from the PEEP saver. The patient's oxygen saturations remained in the 80s. Using a MAC 4 blade, a grade 1 view, with significant white secretions noted around the larynx, a 7.5 endotracheal tube was easily inserted to 23 cm at the teeth. Positive easy cap color change and bilateral breath sounds noted. The patient did desaturate with bag ventilations through the endotracheal tube with 10 of PEEP on the PEEP saver. Oxygenation recovered, but took several minutes, taking back up to 90%. The endotracheal tube was secured in position and placed on mechanical ventilatory support. The patient remain sedated and placed on sedation and mechanical ventilation using the ARDS-Net protocol. <ELECTRONICALLY SIGNED> By: Ty Spann MD 01/07/17 1807 0940 1245 Ty Spann MD /nt
--- NOTE | ~2016-12-28 | 2DMMODE ---
[facility] [place] [address] 2 D/M-MODE ECHOCARDIOGRAM Name: JOSE CARLOSZaneLEATHACELY Room #: 244-P [facility] IN [facility].#: [id number] Admission: 12/28/16 Attend Phys: Dameon Mendes MD Discharge: Date of : 63 Date of Service: 01/01/17 1123 Report #: [id number] THIS REPORT FOR: //name// APPROVED REPORT Study performed: 01/01/2017 09:41:29 EXAM: Comprehensive 2D, Doppler, and color-flow Echocardiogram Patient Location: Bedside Blood Pressure: 124/71 mmHg HR: 101 bpm Other Information Study Quality: Fair Indications Dyspnea Respiratory failure. 2D Dimensions RVDd: 39.51 mm IVC: 17.00 mm Volumes Left Atrial Volume (Systole) Single Plane 4CH: 39.99 mL Single Plane 2CH: 53.88 mL LA ESV Index: 27.00 mL/m2 Aortic Valve AoV Peak Geovanny.: 1.43 m/s AO Peak Gr.: 8.22 mmHg LV Max P.91 mmHg LV Max: 1.31 m/s Mitral Valve MV PHT: 52.41 ms MV E Max Geovanny.: 0.53 m/s E/A Ratio: 0.8 MV A Geovanny.: 0.67 m/s MV Decel. Time: 180.71 ms Tricuspid Valve TR Peak Geovanny.: 3.83 m/s RAP Estimate: 5.00 mmHg TR Peak Gr.: 58.65 mmHg [facility] [place] [address] 2 D/M-MODE ECHOCARDIOGRAM Name: CELY TIPTON Room #: 244-P ADM IN M.R.#: [id number] Admission: 12/28/16 Attend Phys: Dameon Mendes MD Discharge: Date of : 63 Date of Service: 01/01/17 1123 Report #: [id number] Left Ventricle The left ventricle is normal size. There is normal LV segmental wall motion. There is normal left ventricular wall thickness. Left ventricular systolic function is hyperdynamic. There was an increased pressure gradient with a peak of 44 mmHg. LVEF is >70%. Grade I - abnormal relaxation pattern. Right Ventricle The right ventricle is normal size. The right ventricular systolic function is normal. Atria The left atrium size is normal. The right atrium size is normal. Aortic Valve The aortic valve is grossly normal in structure. No aortic regurgitation is present. There is no aortic valvular stenosis. Mitral Valve The mitral valve is normal in structure. There is no mitral valve regurgitation noted. Tricuspid Valve The tricuspid valve is normal in structure. There is trace tricuspid regurgitation. The right atrial pressure is estimated at 5 mmHg. There is severe pulmonary hypertension. Pulmonic Valve The pulmonary valve is normal in structure. There is no pulmonic valvular regurgitation. Great Vessels The aortic root is normal in size. IVC is normal in size and collapses >50% with inspiration. Pericardium No pericardial effusion. <Conclusion> There is normal LV segmental wall motion. Left ventricular systolic function is hyperdynamic. EF 70% Moderate 40 mmHg LV intracavatary gradient, likely related to hyperdynamic LV function. [facility] [address] [place] [address] 2 D/M-MODE ECHOCARDIOGRAM Name: CELY TIPTON Room #: 244-[facility] IN ..#: [id number] Admission: 12/28/16 Attend Phys: Dameon Mendes MD Discharge: Date of : 63 Date of Service: 01/01/17 112 Report #: [id number] The aortic valve is grossly normal in structure. No stenosis or regurgitation The mitral valve is normal in structure. There is no mitral valve regurgitation. Pulmonary artery pressure of 65mmHg. No pericardial effusion. <ELECTRONICALLY SIGNED> By: Reggie Baer MD, FACC 01/01/171122 22 22 Reggie Baer MD, FACC /INF
[~2016-12-28 09:11] MED LIST changes: +ACETAMINOPHEN325 M1 PO; +BENAZEPRIL HCL10 MG PO; +COUMADIN7.5 MG PO; +ENOXAPARIN100 MG/11 SUBQ; +FENTANYL 0.50 MCG/ML IV PUSH; +FUROSEMIDE20 MG/2 ML IV PUSH; +GABAPENTIN 100100 MG PO; +HUMALOG100 UNIT/1 SUBQ; +LACTULOSE10 GM/153 PO; +LANTUSSOLASTAR SUBQ; +LOPRESSOR25 PO; +MIRALAX17 GM PER TUBE; +PANTOPRAZOLE SO40 M1 PO; +PEDIA-LAX50 MG/15 M PO; +SOLU-MEDRO125 MG/24 IV PUSH
[2016-12-28 09:26] LABS: HEMOGLOBIN 8.3 gm/dL (12.0-15.0); RBC 3.16 mil/uL (4.20-5.00); WBC 4.6 thou/uL (4.0-11.0)
[2016-12-28 09:30] LABS: HEMATOCRIT 25.6 % (37.0-47.0); MCH 26.3 pg (26.0-34.0); MCHC 32.4 g/dL (28.0-37.0); MCV 81.1 fL (80.0-100.0); PLATELET COUNT 194 thou/uL (150-400); RDW 25.5 % (10.5-14.5)
[2016-12-28 09:31] LABS: MANUAL DIFF YES
[2016-12-28 09:32] LABS: ABG SAMPLE TYPE ARTERIAL; BE(vivo) 4.8 mmol/L (-2 to +3); HCO3 28.5 mmol/L (22.0-26.0); LACTATE 1.86 mmol/L (0.5-2.0); O2(CT) 12.2 mL/dL (15.0-23.0); O2Hb 92.8 % (92.0-98.0); PCO2 38.6 mmHg (35.0-45.0); PO2 73.6 mmHg (80.0-100.0); STICK SITE L.RADIAL; pH 7.486 (7.360-7.450); sO2 95.8 % (92.0-98.0); tCO2 29.7 mmol/L (24.0-30.0)
[2016-12-28] MEDS ORDERED: LISINOPRIL10 MG PO (09:33)
[2016-12-28] MEDS ORDERED: SOLU-MEDRO40 MG/1 M2 IJ (09:34)
[2016-12-28 09:35] LABS: CALCIUM 8.6 mg/dL (8.5-10.1); CREATININE 0.5 mg/dL (0.6-1.3); POTASSIUM 3.8 mmol/L (3.5-5.1)
[2016-12-28] MEDS ORDERED: SOLU-MEDRO125 MG/24 IJ (09:35)
[2016-12-28] MEDS ORDERED: TRAZODONE HCL50 MG PO (09:36)
[2016-12-28] MEDS ORDERED: DURAGESIC25 MCG/HR TP (09:36)
[2016-12-28] MEDS ORDERED: NORCO 5-325 TA1 EACH PO (09:37)
[2016-12-28] MEDS ORDERED: ATIVAN0.5 MG PO (09:38)
[2016-12-28] MEDS ORDERED: ZOFRAN ODT4 MG PO (09:38)
[2016-12-28] MEDS ORDERED: ENOXAPARIN100 MG/11 SUBQ (09:38)
[2016-12-28 09:48] LABS: ABSOLUTE NEUTROPHILS 3.3 thou/uL (1.4-8.2); TOTAL CELL COUNT 100
[2016-12-28 09:49] LABS: ANISOCYTOSIS 2+; PLATELET ESTIMATE NORMAL
[2016-12-28 11:02] LABS: INR 3.2; PROTIME 32.8 Seconds (9.3-11.4)
[2016-12-28 20:23] LABS: CALCIUM 8.5 mg/dL (8.5-10.1); CREATININE 0.4 mg/dL (0.6-1.3); MAGNESIUM 1.7 mg/dL (1.8-2.4); POTASSIUM 3.3 mmol/L (3.5-5.1)
[2016-12-29] VITALS (24 sets, daily range): BP systolic 112–180; BP diastolic 66–118
[2016-12-29 04:11] LABS: HEMATOCRIT 22.1 % (37.0-47.0); HEMOGLOBIN 7.3 gm/dL (12.0-15.0); MCH 26.6 pg (26.0-34.0); MCHC 32.9 g/dL (28.0-37.0); MCV 80.8 fL (80.0-100.0); RBC 2.74 mil/uL (4.20-5.00); RDW 25.1 % (10.5-14.5); WBC 3.2 thou/uL (4.0-11.0)
[2016-12-29 04:28] LABS: INR 2.6; PROTIME 27.2 Seconds (9.3-11.4)
[2016-12-29 04:34] LABS: CALCIUM 7.8 mg/dL (8.5-10.1); CREATININE 0.3 mg/dL (0.6-1.3); POTASSIUM 3.9 mmol/L (3.5-5.1)
[2016-12-30] VITALS (27 sets, daily range): BP systolic 132–182; BP diastolic 57–99
[2016-12-30 04:38] LABS: CALCIUM 7.8 mg/dL (8.5-10.1); CREATININE 0.4 mg/dL (0.6-1.3); POTASSIUM 3.4 mmol/L (3.5-5.1)
[2016-12-30 04:42] LABS: HEMATOCRIT 22.6 % (37.0-47.0); HEMOGLOBIN 7.2 gm/dL (12.0-15.0); MAGNESIUM 1.8 mg/dL (1.8-2.4); MCH 25.8 pg (26.0-34.0); MCHC 31.8 g/dL (28.0-37.0); PHOSPHORUS 2.8 mg/dL (2.5-4.9); RBC 2.79 mil/uL (4.20-5.00); RDW 24.1 % (10.5-14.5); WBC 4.1 thou/uL (4.0-11.0)
[2016-12-30 08:28] LABS: INR 2.9; PROTIME 29.7 Seconds (9.3-11.4)
[2016-12-31] VITALS (66 sets, daily range): BP systolic 123–218; BP diastolic 59–164
[2016-12-31 05:25] LABS: HEMATOCRIT 22.8 % (37.0-47.0); HEMOGLOBIN 7.4 gm/dL (12.0-15.0); MCH 26.2 pg (26.0-34.0); MCHC 32.6 g/dL (28.0-37.0); MCV 80.3 fL (80.0-100.0); RBC 2.84 mil/uL (4.20-5.00); RDW 24.2 % (10.5-14.5); WBC 5.5 thou/uL (4.0-11.0)
[2016-12-31 05:37] LABS: CALCIUM 8.3 mg/dL (8.5-10.1); CREATININE 0.5 mg/dL (0.6-1.3); PHOSPHORUS 2.1 mg/dL (2.5-4.9); POTASSIUM 3.7 mmol/L (3.5-5.1)
[2016-12-31 07:52] LABS: INR 1.6; PROTIME 16.3 Seconds (9.3-11.4)
[2016-12-31 15:40] LABS: ABG SAMPLE TYPE ARTERIAL; BE(vivo) 7.2 mmol/L (-2 to +3); HCO3 32.4 mmol/L (22.0-26.0); O2(CT) 12.7 mL/dL (15.0-23.0); O2Hb 91.5 % (92.0-98.0); PCO2 49.5 mmHg (35.0-45.0); pH 7.434 (7.360-7.450); sO2 93.4 % (92.0-98.0); tCO2 33.9 mmol/L (24.0-30.0)
[2016-12-31 15:41] LABS: LACTATE 4.11 mmol/L (0.5-2.0); Pressure Support 10 cm H20; STICK SITE L.RADIAL
[2017-01-01] VITALS (43 sets, daily range): BP systolic 123–189; BP diastolic 58–94
[2017-01-01 05:29] LABS: HEMOGLOBIN 8.4 gm/dL (12.0-15.0); MCH 25.9 pg (26.0-34.0); MCHC 32.2 g/dL (28.0-37.0); MCV 80.3 fL (80.0-100.0); RBC 3.25 mil/uL (4.20-5.00); RDW 24.3 % (10.5-14.5); WBC 9.9 thou/uL (4.0-11.0)
[2017-01-01 06:02] LABS: CALCIUM 8.4 mg/dL (8.5-10.1); CREATININE 0.4 mg/dL (0.6-1.0); POTASSIUM 3.4 mmol/L (3.5-5.1)
[2017-01-01 07:32] LABS: INR 1.6; PROTIME 16.1 Seconds (9.3-11.4)
[2017-01-01 08:26] LABS: ABG SAMPLE TYPE ARTERIAL; BE(vivo) 4.9 mmol/L (-2 to +3); HCO3 31.9 mmol/L (22.0-26.0); O2(CT) 11.2 mL/dL (15.0-23.0); PCO2 61.7 mmHg (35.0-45.0); pH 7.332 (7.360-7.450); sO2 80.6 % (92.0-98.0); tCO2 33.8 mmol/L (24.0-30.0)
[2017-01-01 08:27] LABS: LACTATE 4.63 mmol/L (0.5-2.0); PO2 48.8 mmHg (80.0-100.0); Pressure Support 20 cm H20; STICK SITE R.RADIAL
[2017-01-01 10:37] LABS: ABG SAMPLE TYPE ARTERIAL; BE(vivo) 5.8 mmol/L (-2 to +3); HCO3 33.1 mmol/L (22.0-26.0); LACTATE 3.14 mmol/L (0.5-2.0); O2(CT) 11.2 mL/dL (15.0-23.0); O2Hb 93.3 % (92.0-98.0); PO2 85.1 mmHg (80.0-100.0); sO2 95.2 % (92.0-98.0); tCO2 35.2 mmol/L (24.0-30.0)
[2017-01-01 10:38] LABS: PCO2 67.3 mmHg (35.0-45.0); STICK SITE LINE; TIDAL VOLUME 350 ml
[2017-01-01 11:00] LABS: MAGNESIUM 1.9 mg/dL (1.8-2.4); PHOSPHORUS 2.3 mg/dL (2.5-4.9)
[2017-01-02 05:26] LABS: INR 2.3; PROTIME 23.7 Seconds (9.3-11.4)
[2017-01-02 05:28] LABS: HEMATOCRIT 23.7 % (37.0-47.0); HEMOGLOBIN 7.5 gm/dL (12.0-15.0); MCH 25.9 pg (26.0-34.0); MCHC 31.6 g/dL (28.0-37.0); RBC 2.89 mil/uL (4.20-5.00); WBC 9.4 thou/uL (4.0-11.0)
[2017-01-02 05:46] LABS: ALBUMIN 1.7 g/dL (3.4-5.0); CALCIUM 8.3 mg/dL (8.5-10.1); CREATININE 0.3 mg/dL (0.6-1.0); POTASSIUM 3.8 mmol/L (3.5-5.1); TOTAL BILIRUBIN 0.5 mg/dL (<0.1-1.0); TOTAL PROTEIN 5.8 g/dL (6.4-8.2)
[2017-01-02 05:46] LABS: ABG SAMPLE TYPE ARTERIAL; HCO3 34.9 mmol/L (22.0-26.0); LACTATE 2.12 mmol/L (0.5-2.0); O2(CT) 11.3 mL/dL (15.0-23.0); O2Hb 97.3 % (92.0-98.0); PO2 142.5 mmHg (80.0-100.0); sO2 98.4 % (92.0-98.0); tCO2 37.2 mmol/L (24.0-30.0)
[2017-01-02 05:47] LABS: PCO2 75.6 mmHg (35.0-45.0); STICK SITE LINE; TIDAL VOLUME 350 ml; pH 7.282 (7.360-7.450)
[2017-01-02 13:07] VITALS: BP 113/64
[2017-01-02 14:56] LABS: PHOSPHORUS 3.1 mg/dL (2.5-4.9)
[2017-01-02 16:04] LABS: ABG SAMPLE TYPE ARTERIAL; BE(vivo) 9.2 mmol/L (-2 to +3); HCO3 36.1 mmol/L (22.0-26.0); LACTATE 2.17 mmol/L (0.5-2.0); O2(CT) 9.9 mL/dL (15.0-23.0); O2Hb 93.5 % (92.0-98.0); PO2 78.5 mmHg (80.0-100.0); pH 7.344 (7.360-7.450); sO2 94.5 % (92.0-98.0); tCO2 38.2 mmol/L (24.0-30.0)
[2017-01-02 16:05] LABS: PCO2 67.8 mmHg (35.0-45.0); STICK SITE LINE
[2017-01-02 16:06] LABS: TIDAL VOLUME 350 ml
[2017-01-02 18:34] VITALS: BP 119/59
[2017-01-02 23:56] VITALS: BP 134/80
[2017-01-03 05:28] LABS: INR 2.1; PROTIME 21.4 Seconds (9.3-11.4); WBC 5.7 thou/uL (4.0-11.0)
[2017-01-03 05:31] LABS: HEMATOCRIT 21.1 % (37.0-47.0); MCH 26.2 pg (26.0-34.0); MCHC 32.2 g/dL (28.0-37.0); MCV 81.3 fL (80.0-100.0); RBC 2.6 mil/uL (4.20-5.00); RDW 23.8 % (10.5-14.5)
[2017-01-03 05:35] LABS: ALBUMIN 1.5 g/dL (3.4-5.0); CALCIUM 8.2 mg/dL (8.5-10.1); CREATININE 0.4 mg/dL (0.6-1.0); PHOSPHORUS 2.3 mg/dL (2.5-4.9); POTASSIUM 3.8 mmol/L (3.5-5.1); TOTAL BILIRUBIN 0.4 mg/dL (<0.1-1.0); TOTAL PROTEIN 5.4 g/dL (6.4-8.2)
[2017-01-03 05:45] LABS: HEMOGLOBIN 6.8 gm/dL (12.0-15.0)
[2017-01-03 07:59] VITALS: BP 158/73
[2017-01-03 08:06] VITALS: BP 167/77
[2017-01-03 09:33] LABS: ABG SAMPLE TYPE ARTERIAL; BE(vivo) 6.6 mmol/L (-2 to +3); HCO3 33.3 mmol/L (22.0-26.0); LACTATE 2.28 mmol/L (0.5-2.0); O2(CT) 10.7 mL/dL (15.0-23.0); O2Hb 89.6 % (92.0-98.0); PCO2 61.8 mmHg (35.0-45.0); PO2 63.8 mmHg (80.0-100.0); TIDAL VOLUME 350 ml; pH 7.349 (7.360-7.450); sO2 90.7 % (92.0-98.0); tCO2 35.2 mmol/L (24.0-30.0)
[2017-01-03 09:34] LABS: STICK SITE LINE
[2017-01-03 14:37] VITALS: BP 119/58; BP 130/61
[2017-01-03 21:09] LABS: INFLUENZA B Negative (Negative); METAPNEUMOVIRUS Negative (Negative)
[2017-01-05 13:10] LABS: LEGIONELLA PCR SOURCE Sputum (()); LEGIONELLA PNEUMO PCR RESULT Not Detected (()); LEGIONELLA SPECIES PCR Not Detected (())
== END 2017-01-03 16:00 | disposition short-term general hospital (02) | DRG 208 ==
LOC: ER 09:11 → ICU 10:39 → EROBS 10:39 → ICU 12:41
PROVIDERS: Emergency Medicine; Hospitalist; Internal Medicine; Internal Medicine Gastroenterology; Internal Medicine Pulmonary Disease; Nurse Practitioner Adult Health; Specialist
PROC: 5A09457 Assistance with Respiratory Ventilation, 24-96 Consecutive Hours, Continuous Positive Airway Pressure (ICD-10-PCS; 2016-12-29)
PROC: 3E0336Z Introduction of Nutritional Substance into Peripheral Vein, Percutaneous Approach (ICD-10-PCS; principal; 2017-01-01)
PROC: 0BH17EZ Insertion of Endotracheal Airway into Trachea, Via Natural or Artificial Opening (ICD-10-PCS; 2017-01-01)
PROC: 03HC33Z Insertion of Infusion Device into Left Radial Artery, Percutaneous Approach (ICD-10-PCS; 2017-01-01)
PROC: 5A1945Z Respiratory Ventilation, 24-96 Consecutive Hours (ICD-10-PCS; 2017-01-01)
PROC: 30233N1 Transfusion of Nonautologous Red Blood Cells into Peripheral Vein, Percutaneous Approach (ICD-10-PCS; 2017-01-03)
DX: J96.21 Acute and chronic respiratory failure with hypoxia (principal); E43 Unspecified severe protein-calorie malnutrition; J15.6 Pneumonia due to other Gram-negative bacteria; K92.2 Gastrointestinal hemorrhage, unspecified; J84.116 Cryptogenic organizing pneumonia; F41.9 Anxiety disorder, unspecified; E11.9 Type 2 diabetes mellitus without complications; I10 Essential (primary) hypertension; D64.9 Anemia, unspecified; D69.6 Thrombocytopenia, unspecified; R79.89 Other specified abnormal findings of blood chemistry; Y95 Nosocomial condition; Z86.718 Personal history of other venous thrombosis and embolism; Z79.01 Long term (current) use of anticoagulants; Z79.4 Long term (current) use of insulin; Z68.32 Body mass index [BMI] 32.0-32.9, adult; Z87.01 Personal history of pneumonia (recurrent); Z90.49 Acquired absence of other specified parts of digestive tract; Z79.899 Other long term (current) drug therapy
CPT/HCPCS: 10078; 85076

== ENCOUNTER 2017-04-22 19:49 | Inpatient (IN) | payer OTHER ==
[~2017-04-22] VITALS: Ht 167.6 cm; Wt 103.0 kg
--- NOTE | ~2017-04-22 | EKG ---
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: STEPHANY : 1965 Requested By: Ari Shook Order Number: [id number] MD: Reggie Baer Measurements Intervals [employer] Rate: 120 P: 27 DE: 120 QRS: 7 QRSD: 68 T: 91 QT: 312 QTc: 441 Interpretive Statements Sinus tachycardia Nonspecific T abnormalities, lateral leads Compared to ECG 04/16/2017 05:05:11 no significant change was found Electronically Signed On 04-24-2017 7:20:27 CDT by Reggie Baer [email or web address] <ELECTRONICALLY SIGNED> By: Reggie Baer MD, [facility] 04/24/17719 54 54 Reggie Baer MD, FACC /EPI
--- NOTE | ~2017-04-22 | HC ---
[facility] [place] [address] CONSULTATION Name: JOSE CARLOSZaneCELY Room #: 456-P ADM IN M.R.#: [id number] Admission: 04/22/17 Attend Phys: Yasmine Locke Discharge: Date of : 63 Report #: [id number] THIS REPORT FOR: //name// CC: Julio Cesar Spann REASON FOR CONSULTATION: I was asked to evaluate concerning bilateral pulmonary infiltrates and respiratory failure. 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 respiratory failure and was intubated. She was transferred to [facility] for further evaluation and treatment. She was treated initially with corticosteroids, ultimately changed to Cytoxan, spent a fair amount of time in acute rehab, then made her way home about 2 weeks ago. Over the last week, she has noticed progressive shortness of breath. Mild intermittent cough. No significant sputum production. No hemoptysis. No pleuritic chest pain. No fever, chills, or sweats. She developed progressive shortness of breath and was brought into the emergency room for such. She has been on 1 liter of oxygen at rest and 3 liters with exercise as her baseline. She was placed on BiPAP through the night, now she is on 3 liters of oxygen at rest. Temperature went up to 102.3 degrees. She was tachycardic and transiently hypotensive, but that responded to fluids. Temperature now is down. She has had no travel. No nausea, vomiting, or diarrhea. No dysuria or frequency. No rashes. She has a chronic wound to her right face after being intubated and developing a pressure sore. ALLERGIES: ADHESIVES TAPE. MEDICATIONS: As noted on her MAR including Levaquin, Zosyn, vancomycin, and Solu-Medrol. Prior to her admission, she was on Bactrim prophylaxis and had received a course of Levaquin within the last several weeks. PAST MEDICAL HISTORY: Hypertension, pneumonia, and COPD. FAMILY HISTORY: Noncontributory. SOCIAL HISTORY: Otherwise, unremarkable. REVIEW OF SYSTEMS: Noted above. PHYSICAL EXAMINATION: VITAL SIGNS: Currently, afebrile, hemodynamically stable. GENERAL: She was alert and cooperative and pleasant, in no acute distress, [address] [address] CONSULTATION Name: CELY TIPTON Room #: 456-P [facility] IN M.R.#: [id number] Admission: 04/22/17 Attend Phys: Yasmine Locke Discharge: Date of : 63 Report #: [id number] sitting up in bed. She did become dyspneic with any activity. Obese. She had a healing wound to her right cheek. HEENT: Otherwise, unremarkable. NECK: Supple, no adenopathy. LUNGS: Crackles heard in the bases bilaterally, no consolidation. HEART: Regular without murmur. ABDOMEN: Soft, mild tenderness in the right upper quadrant. No hepatosplenomegaly or mass appreciated. EXTREMITIES: Unremarkable. NEUROLOGIC: Normal. LABORATORY STUDIES: Chest x-ray, bilateral pulmonary infiltrates. CT scan of the chest same with evidence of edema. Echocardiogram, normal EF. Blood cultures pending. Sputum culture not yet received. Hemoglobin 11.2, white count 12.8. Differential, 93% segs, platelet count 250,000. Sodium 138, potassium 4.5, bicarbonate 25, creatinine 0.9. BNP 366. Urinalysis unremarkable. On 35% BiPAP, pO2 105, pCO2 of 37, pH 7.39, and lactate 3.7. 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 Although, her BNP is only slight elevated, it appears on imaging studies that pulmonary edema may be part of this presentation. Opportunistic infection would also be considered, although she appears to have improved. within 24 hours. She did have a fever, which again appears acute in nature. The patient reports no fevers prior to her admission. RECOMMENDATION: We will continue IV antibiotic therapy. Restart her Bactrim. Continue immunosuppression for possible component of her BOOP contributing here. Continue with diuresis as possible. If any worsening in her infiltrate or oxygen requirements, we would consider bronchoscopy for further evaluation. <ELECTRONICALLY SIGNED> By: Mansoor Pringle MD 04/24/17 2123 1523 1657 Mansoor Pringle MD /nt
--- NOTE | ~2017-04-22 | 2DMMODE ---
[facility] [address] [place] [address] 2 D/M-MODE ECHOCARDIOGRAM Name: CELY TIPTON Room #: 242-P ADM IN M.R.#: [id number] Admission: 04/22/17 Attend Phys: Yasmine Sanchez Discharge: Date of : 63 Date of Service: 04/23/17 1159 Report #: [id number] THIS REPORT FOR: //name// APPROVED REPORT Study performed: 04/23/2017 10:24:11 EXAM: Comprehensive 2D, Doppler, and color-flow Echocardiogram Patient Location: ICU Room #: 242 Status: routine Other Information Study Quality: Adequate Indications Congestive Heart Failure Pulmonary Edema 2D Dimensions RVDd: 29.90 mm LVEF(%): 70.45 (>50%) IVSd: 10.80 (7-11mm) LVOT Diam: 20.16 (18-24mm) LVDd: 50.22 mm PWd: 10.03 (7-11mm) Ascending Ao: 31.51 (22-36mm) LVDs: 30.10 (25-40mm) Aortic Root: 32.42 mm IVC: 1.90 mm Barba's LVEF: 70.45 % Volumes Left Atrial Volume (Systole) Single Plane 4CH: 50.87 mL Single Plane 2CH: 40.43 mL LA ESV Index: 23.00 mL/m2 Aortic Valve AoV Peak Geovanyn.: 1.33 m/s AO Peak Gr.: 7.05 mmHg LVOT Max P.00 mmHg LVOT Max V: 1.22 m/s DEVANG Vmax: 2.94 cm2 Pulmonary Valve PV Peak Geovanny.: 1.03 m/s PV Peak Gr.: 4.20 mmHg Tricuspid Valve TR Peak Geovanny.: 2.50 m/s RAP Estimate: 5.00 mmHg TR Peak Gr.: 25.04 mmHg [facility] [place] [place] [address] 2 D/M-MODE ECHOCARDIOGRAM Name: CELY TIPTON Room #: 242-P [facility] IN .R.#: [id number] Admission: 04/22/17 Attend Phys: Yasmine Sanchez Discharge: Date of : 63 Date of Service: 04/23/17 1159 Report #: [id number] PA Pressure: 30.00 mmHg Left Ventricle The left ventricle is normal size. Regional wall motion is hyperdynamic. There is normal left ventricular wall thickness. The left ventricular systolic function is normal. The left ventricular ejection fraction is within the normal range. LVEF is 65%. This study is not technically sufficient to allow evaluation of the LV diastolic function. Right Ventricle The right ventricle is normal size. The right ventricular systolic function is normal. Atria The left atrium size is normal. The right atrium size is normal. Aortic Valve The aortic valve is normal in structure. No aortic regurgitation. There is no aortic valvular stenosis. Mitral Valve The mitral valve is normal in structure. Trace mitral regurgitation. No evidence of mitral valve stenosis. Tricuspid Valve The tricuspid valve is normal in structure. There is trace tricuspid regurgitation. The right atrial pressure is estimated at 5 mmHg. There is mild pulmonary hypertension with an estimated PAP of 30 mmHg. Pulmonic Valve The pulmonary valve is normal in structure. There is no pulmonic valvular regurgitation. Great Vessels The aortic root is normal in size. IVC is normal in size and collapses >50% with inspiration. Pericardium There is a trace pericardial effusion. <Conclusion> The left ventricular systolic function is normal. Regional wall motion is hyperdynamic. [facility] [address] [place] [address] 2 D/M-MODE ECHOCARDIOGRAM Name: CELY TIPTON Room #: 242-P [facility] IN .R.#: [id number] Admission: 04/22/17 Attend Phys: Yasmine Sanchez Discharge: Date of : 63 Date of Service: 04/23/17 1159 Report #: [id number] LVEF is 65%. The aortic valve is normal in structure. No aortic stenosis or regurgitation. The mitral valve is normal in structure. Trace mitral regurgitation. Pulmonary artery pressure of 30mmHg There is a trace pericardial effusion. <ELECTRONICALLY SIGNED> By: Reggie Baer MD, [facility] 04/23/17 1159 1159 1159 Reggie Baer MD, FAC /INF
--- NOTE | ~2017-04-22 | HC ---
[facility] [place] [address] CONSULTATION Name: SAEEDCELY Room #: 456-P ADM IN M.R.#: [id number] Admission: 04/22/17 Attend Phys: Yasmine Locke Discharge: Date of : 63 Report #: [id number] THIS REPORT FOR: //name// CC: Julio Cesar Spann HISTORY OF PRESENT ILLNESS: The patient is a 51-year-old -Cypriot female with a history of cryptogenic organizing pneumonia/bronchogenic obliterans who had a prior prolonged hospitalization at [facility] back in November who was transferred to [facility], needed tracheostomy, from there went for a long-term acute care hospital stay and then a jail facility stay and was able to get back home approximately a week and a half ago. The trach was removed. She was on 2 liters of oxygen, was ambulatory with a walker. She was doing reasonably well until she began having increased shortness of breath and was readmitted to [facility]. She was noted to have acute on chronic hypoxic respiratory failure with healthcare-associated pneumonia and sepsis. She has been in the intensive care unit and just moved to the floor today. She has generalized weakness and debilitation and we are seeing her in rehabilitation medicine consultation. PAST MEDICAL HISTORY: Includes prior video-assisted thoracoscopy with a wedge resection biopsy of lower and middle lobes, diabetes mellitus, exogenous obesity, and COPD. MEDICATIONS: Please see the full medication listing. SOCIAL HISTORY: Lives in a house with her daughter and 16-year-old granddaughter. Her granddaughter is with her during the day. She has 2 steps in, was on 2 liters nasal prong O2 at home, used a walker for short distances around the house. She needed some assistance with her ADLs. REVIEW OF SYSTEMS: Note, she is breathing better. Did not offer any complaints of chest pain, abdominal discomfort, complains of weakness of both upper and lower extremities. She does have a neuropathy and complains of some pain with numbness and tingling in her feet. PHYSICAL EXAMINATION: GENERAL: A 51-year-old pleasant, obese female, in no obvious distress. She is alert, pleasant, and oriented. VITAL SIGNS: Last recorded temperature 98.3, pulse 89, respirations 20, and blood pressure 136/68. HEENT: Appeared to be benign. NEUROLOGIC: Cranial nerves are grossly intact. Facies are symmetric. EXTREMITIES: She has functional range of motion of both upper extremities, strength is grade 4-/5. DTRs are trace to 1. In her lower extremities, she has functional range of motion with strength a grade 4- to 3+/5. DTRs are trace to [address] [address] CONSULTATION Name: CELY TIPTON Room #: 456-P [facility] IN M.R.#: [id number] Admission: 04/22/17 Attend Phys: Yasmine Locke Discharge: Date of : 63 Report #: [id number] 1. She does have decreased sensation to proprioception in bilateral large toes. Tone otherwise appeared to be intact. She has the indwelling Briggs catheter. She is mod assist with sit to stand. Gait was 4 steps mod assist. ASSESSMENT: A 51-year-old -Cypriot female with the following problem list: 1. Likely critical illness myopathy. 2. Medical complexity with generalized debilitation. 3. 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 4. Acute on chronic hypoxic respiratory failure. 5. Healthcare-associated pneumonia. 6. Sepsis. 7. Exogenous obesity. 8. Diabetes mellitus with diabetic peripheral neuropathy. PLAN: Therapies are continuing. She has improved to the point where she has been moved out of the intensive care unit. She is being closely monitored by pulmonary medicine as well as infectious disease. She is very motivated. She may warrant a short acute in-hospital inpatient rehabilitation stay to further maximize her functional independence with mobility and ADLs and to allow the above noted business process consultant physicians to continue to follow while she is on rehab to further increase her chances of successful return back to the home setting. Insurance case and issues would need to be checked. We will continue to follow along with you in the meantime. By: [id number] Issa Cramer MD /nt
[~2017-04-22 19:49] MED LIST changes: +ATIVAN0.5 MG PO; +DURAGESIC25 MCG/HR TP; +LISINOPRIL10 MG PO; +NORCO 5-325 TA1 EACH PO; +SOLU-MEDRO125 MG/24 IJ; +SOLU-MEDRO40 MG/1 M2 IJ; +TRAZODONE HCL50 MG PO; +ZOFRAN ODT4 MG PO
[2017-04-22 19:51] VITALS: BP 199/90
[2017-04-22 20:05] LABS: HEMATOCRIT 36.1 % (37.0-47.0); HEMOGLOBIN 11.4 gm/dL (12.0-15.0); MCH 25.5 pg (26.0-34.0); MCHC 31.5 g/dL (28.0-37.0); MCV 80.9 fL (80.0-100.0); RBC 4.46 mil/uL (4.20-5.00); RDW 17.8 % (10.5-14.5); WBC 14.2 thou/uL (4.0-11.0)
[2017-04-22 20:16] LABS: ANION GAP 11 mmol/L (7-16); BUN 6 mg/dL (7-18); CALCIUM 8.2 mg/dL (8.5-10.1); CHLORIDE 106 mmol/L (98-107); CO2 25 mmol/L (21-32); CREATININE 0.6 mg/dL (0.6-1.0); GLUCOSE 196 mg/dL (74-106); POTASSIUM 3.6 mmol/L (3.5-5.1); SODIUM 142 mmol/L (136-145)
[2017-04-22 20:24] LABS: TROPONIN-I < 0.04 ng/mL (<0.04-0.07)
[2017-04-22] MEDS ORDERED: PEPCID20 MG PO (20:49)
[2017-04-22] MEDS ORDERED: ONDANSETRON HCL4 M2 PO (20:49)
[2017-04-22] MEDS ORDERED: ATIVAN1 MG PO (20:49)
[2017-04-22] MEDS ORDERED: LOPRESSOR50 PO (20:50)
[2017-04-22] MEDS ORDERED: GABAPENTIN 100100 MG PO (20:50)
[2017-04-22] MEDS ORDERED: BUSPIRONE HCL10 MG PO (20:51)
[2017-04-22] MEDS ORDERED: TRAZODONE HCL50 MG PO (20:51)
[2017-04-22] MEDS ORDERED: PRINIVIL20 MG PO (20:51)
[2017-04-22] MEDS ORDERED: VITAMIN D 5050000 I1 PO (20:52)
[2017-04-22] MEDS ORDERED: MIRTAZAPINE7.5 MG PO (20:53)
[2017-04-22] MEDS ORDERED: BACTRIM DS TAB1 EACH PO (20:53)
[2017-04-22] MEDS ORDERED: OXYCONTIN10 M1 PO (20:54)
[2017-04-22] MEDS ORDERED: LOPERAMIDE 2 MG2 M1 PO (20:54)
[2017-04-22] MEDS ORDERED: LEVAQUIN 750 M750 MG PO (20:54)
[2017-04-22] MEDS ORDERED: PREDNISONE 20 M20 MG PO (20:55)
[2017-04-22] MEDS ORDERED: DUONEB 2.5-0.5 M3 ML INH (20:55)
[2017-04-22] MEDS ORDERED: ALBUTEROL2.5 MG/31 INH (20:56)
[2017-04-22 21:00] LABS: APTT 24.3 Seconds (24.5-32.8); PROTIME 9.9 Seconds (9.3-11.4)
[2017-04-22 21:30] LABS: BE(vivo) -1.7 mmol/L (-2 to +3); HCO3 23.9 mmol/L (22.0-26.0); O2(CT) 6.2 mL/dL (15.0-23.0); PCO2 43.8 mmHg (35.0-45.0); pH 7.354 (7.360-7.450); tCO2 25.2 mmol/L (24.0-30.0)
[2017-04-22 21:31] LABS: LACTATE 3.87 mmol/L (0.5-2.0); O2Hb 37.4 % (92.0-98.0); PO2 23.2 mmHg (80.0-100.0)
[2017-04-22 21:32] LABS: ABG SAMPLE TYPE VENOUS
[2017-04-22 23:20] VITALS: BP 148/82; BP 163/81
[2017-04-23] VITALS (27 sets, daily range): BP systolic 126–162; BP diastolic 72–94
[2017-04-23 00:59] LABS: URINE BILIRUBIN NEGATIVE (Negative); URINE BLOOD NEGATIVE (Negative); URINE COLOR YELLOW; URINE GLUCOSE-RANDOM* NEGATIVE (Negative); URINE KETONES NEGATIVE (Negative); URINE NITRITE NEGATIVE (Negative); URINE PROTEIN (DIPSTICK) NEGATIVE (Negative); URINE SPECIFIC GRAVITY 1.025 (1.003-1.035); URINE UROBILINOGEN 0.2 E.U./dl (0.2-1.0)
[2017-04-23 05:26] LABS: ABG SAMPLE TYPE ARTERIAL; BE(vivo) -1.9 mmol/L (-2 to +3); HCO3 22.5 mmol/L (22.0-26.0); O2(CT) 15.8 mL/dL (15.0-23.0); PCO2 37.3 mmHg (35.0-45.0); PO2 105.4 mmHg (80.0-100.0); pH 7.399 (7.360-7.450); sO2 97.9 % (92.0-98.0); tCO2 23.7 mmol/L (24.0-30.0)
[2017-04-23 05:28] LABS: FIO2 35 %; LACTATE 3.76 mmol/L (0.5-2.0); Pressure Support 6 cm H20; STICK SITE L.RADIAL
[2017-04-23 05:40] LABS: HEMOGLOBIN 11.2 gm/dL (12.0-15.0); MCH 25.2 pg (26.0-34.0); MCHC 31.2 g/dL (28.0-37.0); MCV 80.8 fL (80.0-100.0); PLATELET COUNT 250 thou/uL (150-400); RBC 4.46 mil/uL (4.20-5.00); RDW 17.8 % (10.5-14.5); WBC 12.8 thou/uL (4.0-11.0)
[2017-04-23 06:02] LABS: CALCIUM 8.6 mg/dL (8.5-10.1); CREATININE 0.9 mg/dL (0.6-1.0); POTASSIUM 4.5 mmol/L (3.5-5.1)
[2017-04-23 06:09] LABS: MANUAL DIFF YES
[2017-04-23 07:09] LABS: ABSOLUTE NEUTROPHILS 11.9 thou/uL (1.4-8.2); ANISOCYTOSIS 1+; TOTAL CELL COUNT 100
[2017-04-24] VITALS (17 sets, daily range): BP systolic 122–165; BP diastolic 52–92
[2017-04-24 05:13] LABS: ABG SAMPLE TYPE ARTERIAL; BE(vivo) 8.6 mmol/L (-2 to +3); HCO3 33.4 mmol/L (22.0-26.0); LACTATE 2.97 mmol/L (0.5-2.0); O2(CT) 14.8 mL/dL (15.0-23.0); O2Hb 94.1 % (92.0-98.0); PCO2 47.4 mmHg (35.0-45.0); PO2 74.2 mmHg (80.0-100.0); pH 7.466 (7.360-7.450); sO2 95.5 % (92.0-98.0); tCO2 34.9 mmol/L (24.0-30.0)
[2017-04-24 05:17] LABS: STICK SITE L.RADIAL
[2017-04-24 05:32] LABS: HEMATOCRIT 32.1 % (37.0-47.0); HEMOGLOBIN 10.1 gm/dL (12.0-15.0); MCH 25.1 pg (26.0-34.0); MCHC 31.5 g/dL (28.0-37.0); MCV 79.7 fL (80.0-100.0); PLATELET COUNT 265 thou/uL (150-400); RBC 4.03 mil/uL (4.20-5.00); RDW 17.8 % (10.5-14.5); WBC 13.8 thou/uL (4.0-11.0)
[2017-04-24 05:34] LABS: MANUAL DIFF YES
[2017-04-24 05:47] LABS: ALBUMIN 2.3 g/dL (3.4-5.0); CREATININE 0.7 mg/dL (0.6-1.0); MAGNESIUM 1.6 mg/dL (1.8-2.4); POTASSIUM 4.2 mmol/L (3.5-5.1); TOTAL BILIRUBIN 0.2 mg/dL (<0.1-1.0); TOTAL PROTEIN 6.1 g/dL (6.4-8.2)
[2017-04-24 09:24] LABS: PLATELET ESTIMATE NORMAL; TOTAL CELL COUNT 100
[2017-04-25 04:15] VITALS: BP 165/98
[2017-04-25 06:03] LABS: HEMATOCRIT 30.5 % (37.0-47.0); HEMOGLOBIN 9.9 gm/dL (12.0-15.0); MCH 25.6 pg (26.0-34.0); MCHC 32.3 g/dL (28.0-37.0); MCV 79.1 fL (80.0-100.0); PLATELET COUNT 260 thou/uL (150-400); RBC 3.86 mil/uL (4.20-5.00); RDW 17.9 % (10.5-14.5); WBC 10.3 thou/uL (4.0-11.0)
[2017-04-25 06:31] LABS: MANUAL DIFF YES
[2017-04-25 07:39] VITALS: BP 160/80
[2017-04-25 08:32] LABS: ABSOLUTE NEUTROPHILS 9.3 thou/uL (1.4-8.2); TOTAL CELL COUNT 100
[2017-04-25 08:33] LABS: ANISOCYTOSIS 1+; POLYCHROMASIA OCCASIONAL
[2017-04-25 12:17] VITALS: BP 158/90
[2017-04-25 15:17] VITALS: BP 147/85
[2017-04-25 21:09] VITALS: BP 153/87
[2017-04-26 05:21] VITALS: BP 160/85
[2017-04-26 07:31] VITALS: BP 157/96
[2017-04-26 16:00] VITALS: BP 137/76
[2017-04-26 19:45] VITALS: BP 171/86
[2017-04-27 04:27] VITALS: BP 146/84
[2017-04-27 07:34] VITALS: BP 154/82
[2017-04-27 11:40] VITALS: BP 145/80
[2017-04-27 15:38] VITALS: BP 150/79
[2017-04-27 19:21] VITALS: BP 141/85
[2017-04-28 04:01] VITALS: BP 151/89
[2017-04-28 20:18] VITALS: BP 139/76
[2017-04-29 00:37] VITALS: BP 154/84
[2017-04-29 03:05] VITALS: BP 158/94
[2017-04-29 07:51] VITALS: BP 158/90
[2017-04-29 12:38] VITALS: BP 145/79
[2017-04-29 15:56] VITALS: BP 135/87
[2017-04-29 19:12] VITALS: BP 133/81
[2017-04-30 03:43] VITALS: BP 137/85
[2017-04-30 07:44] VITALS: BP 128/76
[2017-04-30 13:52] VITALS: BP 127/83
[2017-04-30 15:58] VITALS: BP 133/78
[2017-04-30 20:08] VITALS: BP 145/73
[2017-05-01 03:57] VITALS: BP 140/73
[2017-05-01 07:48] VITALS: BP 136/67
[2017-05-01] MEDS ORDERED: CARDIZEM CD240 MG PO (10:31)
[2017-05-01] MEDS ORDERED: LEVAQUIN 500 M500 M3 PO (10:31)
[2017-05-01] MEDS ORDERED: OXYCONTIN10 M1 PO (10:33)
[2017-05-01 11:58] VITALS: BP 469/67
[2017-05-01 14:26] VITALS: BP 469/67
== END 2017-05-01 18:36 | disposition home health service (06) | DRG 871 ==
LOC: ER 19:49 → 4W 21:59 → ICU 21:59 → EROBS 21:59 → ICU 21:59 → 4W 04-24 13:52
PROVIDERS: Emergency Medicine; Hospitalist; Nurse Practitioner Family
PROC: 5A09357 Assistance with Respiratory Ventilation, Less than 24 Consecutive Hours, Continuous Positive Airway Pressure (ICD-10-PCS; principal; 2017-04-22)
DX: A41.9 Sepsis, unspecified organism (principal); J96.21 Acute and chronic respiratory failure with hypoxia; J18.9 Pneumonia, unspecified organism; E11.40 Type 2 diabetes mellitus with diabetic neuropathy, unspecified; E11.649 Type 2 diabetes mellitus with hypoglycemia without coma; J84.89 Other specified interstitial pulmonary diseases; Y95 Nosocomial condition; I10 Essential (primary) hypertension; R60.0 Localized edema; J44.9 Chronic obstructive pulmonary disease, unspecified; E66.09 Other obesity due to excess calories; E11.42 Type 2 diabetes mellitus with diabetic polyneuropathy; Z79.899 Other long term (current) drug therapy; Z91.048 Other nonmedicinal substance allergy status; Z79.4 Long term (current) use of insulin; Z87.01 Personal history of pneumonia (recurrent); Z68.36 Body mass index [BMI] 36.0-36.9, adult; Z99.81 Dependence on supplemental oxygen
CPT/HCPCS: 10045; 10078

== ENCOUNTER 2017-06-13 08:39 | Inpatient (IN) | payer OTHER ==
[~2017-06-13] VITALS: Ht 167.6 cm; Wt 86.2 kg
--- NOTE | ~2017-06-13 | HC ---
[facility] [place] [address] CONSULTATION Name: CELY TIPTON Room #: 437-P ADM IN M.R.#: [id number] Admission: 06/13/17 Attend Phys: Yasmine Locke Discharge: Date of : 63 Report #: [id number] THIS REPORT FOR: //name// CC: Julio Cesar Locke PULMONARY CONSULTATION PRIMARY PHYSICIAN: Dr. Julio Cesar Caro. REFERRAL PHYSICIAN: Dr. Locke. REASON FOR REFERRAL: History of cryptogenic organizing pneumonia, question the need for Cytoxan therapy. HISTORY OF PRESENT ILLNESS: The patient is a pleasant 52-year-old female who presents to the Emergency Room with progressive weakness and dyspnea. The patient was admitted. A Pulmonary consultation was requested regarding question need to treat the patient's previously known cryptogenic organizing pneumonia with Cytoxan. She was seen by Dr. Mansoor Pringle. The patient is known to this physician. She had an extensive hospitalization this past winter. The patient developed severe bilateral infiltrates, pneumonia. 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 The patient was placed on high-dose corticosteroids. Despite high-dose steroids, the patient did not respond. She was then subsequently transferred to [facility]. According to reports, the patient was eventually placed on Cytoxan. She was still maintained on corticosteroids. According to the patient, she had improved gradually. Cytoxan was discontinued while remaining on lwkxksij-kk-ndh dose prednisone. She then eventually went to LTAC. Tracheostomy was discontinued in January. She has been on several rehabilitation units. She has been home for the last 3 weeks. According to the patient, she had been on low-dose prednisone until about 3 weeks ago when she ran out of prednisone. She was not seen in followup in the pulmonary clinic since her hospitalization. Shortly after having run out of prednisone, she noticed that she was getting progressively weak. Otherwise, denies any febrile illness, chest pain or productive cough. She did notice increasing dyspnea. Chest x-ray and CT chest were reviewed on this admission. CT chest was also performed looking for embolus. This was negative. Septal thickening, ground glass opacity are seen bilaterally. Pleural thickening is also noted in the right chest. Otherwise, no consolidation or air bronchogram is noted. [address] [address] CONSULTATION Name: SAEEDCELY Room #: 437-P [facility] IN M.R.#: [id number] Admission: 06/13/17 Attend Phys: Yasmine Locke Discharge: Date of : 63 Report #: [id number] PAST MEDICAL HISTORY: As mentioned above. Recent pneumonia with ARDS along with biopsy-proven cryptogenic organizing pneumonia in 11/2016, undergone corticosteroids along with Cytoxan therapy. Respiratory failure, status post tracheostomy, which has been removed in 01/2017; diabetes mellitus type 2 for the last several years. She also has a history of hypertension. Upper extremity thrombosis. PAST SURGICAL HISTORY: As mentioned above including status post tracheostomy, PEG tube placement. ALLERGIES: ADHESIVE TAPE. HOME MEDICATIONS: List is reviewed. This includes diltiazem, OxyContin, Ativan, Neurontin, Pepcid, Desyrel, bupropion, mirtazapine, nebulized albuterol, the patient was on prednisone 20 mg once a day. FAMILY HISTORY: Noncontributory. SOCIAL HISTORY: The patient is a lifetime nonsmoker. Denies any alcohol use. REVIEW OF SYSTEMS: As mentioned above, is notable for generalized debility and weakness due to prolonged illness. Otherwise, 10-point system review negative. PHYSICAL EXAMINATION: GENERAL: She is awake, alert, in no apparent distress. VITAL SIGNS: Temperature is 98 degrees Fahrenheit, pulse is 100, respiratory rate is 20, blood pressure 134/61 mmHg, saturation 99% on 2 L of O2. HEENT: Normocephalic, atraumatic. NECK: Supple without lymphadenopathy or thyromegaly. CHEST: Breath sounds are fair with a few scattered crackles. No wheezes. CARDIOVASCULAR: Normal S1, S2. There are no murmurs or gallop. There is no JVD. There is no carotid bruit. Pulses are 2+/4+ bilaterally. BREASTS: Exam is deferred. ABDOMEN: Soft, nontender, no organomegaly or masses felt. GENITOURINARY: Deferred. RECTAL: Deferred. EXTREMITIES: Trace edema, no cyanosis or clubbing. LABORATORY DATA: Chest x-ray and CT chest as mentioned above. Mild pleural thickening on the right side is noted with mild unassociated changes. No consolidation is noted. No pulmonary embolus is noted. BNP was 155. Lactic acid 1.2. Sodium 139, potassium 4.9, chloride 102, CO2 is 27, BUN 6, creatinine 0.7. Liver function profile is grossly unremarkable. WBC 7700, hemoglobin is 11.4, albumin is 2.7. [address] [address] CONSULTATION Name: CELY TIPTON Room #: 437-P ADM IN M.R.#: [id number] Admission: 06/13/17 Attend Phys: Yasmine Bowden Cornelia Discharge: Date of : 63 Report #: [id number] IMPRESSION: Progressive weakness and dyspnea in this 52-year-old female with recent prolonged illness with acute respiratory distress syndrome, biopsy-proven cryptogenic organizing pneumonia. She has been on chronic corticosteroids, which was recently discontinued. The patient's symptoms likely related to adrenal insufficiency due to prolonged corticosteroids. Chest x-ray and chest CT does not show obvious evidence of pneumonia, though cannot rule out absolutely. Recurrence of cryptogenic organizing pneumonia is felt to be less likely also. 1. Cryptogenic organizing pneumonia following lung biopsy in 11/2016, status post corticosteroids along with Cytoxan therapy. 2. Recent prolonged corticosteroid therapy. The patient likely has adrenal insufficiency. 3. Generalized weakness and debility due to prolonged illness along with corticosteroids. 4. Recent respiratory failure, status post tracheostomy tube removal in January of this year. RECOMMENDATION: We will resume corticosteroids and taper very slowly. The patient will benefit from workup for adrenal insufficiency. Endocrine consult will be recommended. At this time, I do not think the patient has exacerbation of cryptogenic organizing pneumonia. We will follow closely. Thank you for this consultation. <ELECTRONICALLY SIGNED> By: Waqas Alonzo MD 06/17/17 1209 1721 0405 Waqas Alonzo MD /nt
--- NOTE | ~2017-06-13 | EKG ---
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
--- NOTE | ~2017-06-13 | HC ---
[facility] [place] [address] CONSULTATION Name: CELY TIPTON Room #: 437-P [facility] IN M.R.#: [id number] Admission: 06/13/17 Attend Phys: Yasmine Locke Discharge: Date of : 63 Report #: [id number] THIS REPORT FOR: //name// CC: Julio Cesar Locke DATE OF SERVICE: 06/14/2017 CHIEF COMPLAINT: Pressure ulceration to the cheek area. HISTORY OF PRESENT ILLNESS: This is a 52-year-old female patient who was admitted to the hospital with a history of COPD and respiratory failure. She had required previous intubation, developed pressure ulceration from the endotracheal tube strap to her right cheek. I have been asked to see her with regard to ongoing wound care. PAST MEDICAL HISTORY: Positive for history of respiratory failure, COPD, chronic constipation and healthcare-associated pneumonia. The patient also has a history of diabetes mellitus and hypertension. MEDICATIONS: Include lorazepam, famotidine, gabapentin, trazodone, buspirone, mirtazapine, albuterol. FAMILY HISTORY: Noncontributory. REVIEW OF SYSTEMS: CONSTITUTIONAL: The patient denies fever, chills or weight loss. NEUROLOGICAL: The patient has focal weakness. ENT: The patient denies earache, nasal drainage, sore throat. Does have some ulceration on her cheek. PULMONARY: The patient complains of mild shortness of breath. Denies cough or sputum production. GASTROINTESTINAL: The patient denies nausea or abdominal pain. ORTHOPEDIC: The patient has pain, swelling in extremities. Other systems are negative. PHYSICAL EXAMINATION: VITAL SIGNS: At this time include temperature of 97.8, pulse rate 105, respiratory rate 19, blood pressure 150/84. GENERAL: This is a chronically ill-appearing female patient, appears to be in no distress. HEENT: Normocephalic. Nose and throat clear. Examination of the cheek demonstrates what appears to be resolving pressure ulceration to the right cheek. There is a little bit of crusting and a small area that remains open. NECK: Supple. [facility] [address] [place] [address] CONSULTATION Name: CELY TIPTON Room #: 437-P [facility] IN M.R.#: [id number] Admission: 06/13/17 Attend Phys: Yasmine Locke Discharge: Date of : 63 Report #: [id number] LUNGS: Diminished. ABDOMEN: Soft. EXTREMITIES: Without clubbing or cyanosis. NEUROLOGIC: Alert and oriented, moving all 4 extremities spontaneously. LABORATORY DATA: Includes sodium 139, potassium 4.1, chloride 102, CO2 27, BUN 6, creatinine 0.7. Glucose is quite elevated at 408. White blood cell count 7.7; hemoglobin 11.4; hematocrit 35.2; platelet count 279,000. CLINICAL IMPRESSION: Stage 2 pressure ulcer on the right cheek, following respiratory failure and intubation. RECOMMENDATIONS: At this point in time, the patient is awake, alert and oriented. She is not currently intubated. There is no pressure on her cheek. We will recommend topical Puracol AG and foam based dressing, to be changed once every other day until the area has resolved. The patient is agreeable to this plan of care. I appreciate being asked to see her in consultation. <ELECTRONICALLY SIGNED> By: Luisito Childers MD 06/14/17 1002 0855 0924 Luisito Childers MD /nt
[~2017-06-13 08:39] MED LIST changes: +ALBUTEROL2.5 MG/31 INH; +ATIVAN1 MG PO; +BACTRIM DS TAB1 EACH PO; +BUSPIRONE HCL10 MG PO; +CARDIZEM CD240 MG PO; +DUONEB 2.5-0.5 M3 ML INH; +LEVAQUIN 500 M500 M3 PO; +LEVAQUIN 750 M750 MG PO; +LOPERAMIDE 2 MG2 M1 PO; +LOPRESSOR50 PO; +MIRTAZAPINE7.5 MG PO; +ONDANSETRON HCL4 M2 PO; +OXYCONTIN10 M1 PO; +PEPCID20 MG PO; +PREDNISONE 20 M20 MG PO; +PRINIVIL20 MG PO; +VITAMIN D 5050000 I1 PO
[2017-06-13 08:40] VITALS: BP 185/94
[2017-06-13 09:52] LABS: ABSOLUTE NEUTROPHILS 4.8 thou/uL (1.4-8.2); BASOPHILS 1.3 % (0.0-2.0); HEMATOCRIT 35.2 % (37.0-47.0); HEMOGLOBIN 11.4 gm/dL (12.0-15.0); LYMPHOCYTES 22.2 % (24.0-44.0); MCH 24.5 pg (26.0-34.0); MCHC 32.4 g/dL (28.0-37.0); MCV 75.7 fL (80.0-100.0); MONOCYTES 9.4 % (1.0-8.0); PLATELET COUNT 279 thou/uL (150-400); POLYS 62.1 % (36.0-66.0); RBC 4.66 mil/uL (4.20-5.00); WBC 7.7 thou/uL (4.0-11.0)
[2017-06-13 09:54] LABS: MANUAL DIFF NO
[2017-06-13 10:04] LABS: ANION GAP 7 mmol/L (7-16); BUN 2 mg/dL (7-18); CALCIUM 8.5 mg/dL (8.5-10.1); CHLORIDE 102 mmol/L (98-107); CO2 27 mmol/L (21-32); CREATININE 0.6 mg/dL (0.6-1.0); GLUCOSE 369 mg/dL (74-106); POTASSIUM 3.6 mmol/L (3.5-5.1); PROTIME 10.1 Seconds (9.3-11.4); SODIUM 136 mmol/L (136-145)
[2017-06-13 10:12] LABS: ALBUMIN 2.8 g/dL (3.4-5.0); ALKALINE PHOSPHATASE 60 U/L (46-116); SGOT 20 U/L (15-37); SGPT 16 U/L (30-65); TOTAL BILIRUBIN 0.3 mg/dL (<0.1-1.0); TOTAL PROTEIN 6.2 g/dL (6.4-8.2); TROPONIN-I < 0.04 ng/mL (<0.04-0.07)
[2017-06-13 10:44] LABS: URINE BILIRUBIN NEGATIVE (Negative); URINE BLOOD NEGATIVE (Negative); URINE COLOR YELLOW; URINE GLUCOSE-RANDOM* 2+ (Negative); URINE KETONES 1+ (Negative); URINE NITRITE NEGATIVE (Negative); URINE PROTEIN (DIPSTICK) NEGATIVE (Negative); URINE SPECIFIC GRAVITY 1.015 (1.003-1.035); URINE UROBILINOGEN 0.2 E.U./dl (0.2-1.0)
[2017-06-13 10:58] LABS: BACTERIA 1-9 Few /HPF (None Seen); CASTS None Seen /LPF (None Seen); CRYSTALS None Seen /LPF (None Seen); SQUAMOUS 4-10 Moderate /LPF (0-3); URINE WBC 6-15 Few /HPF (0-5)
[2017-06-13 10:59] LABS: URINE RBC None Seen /HPF (0-2)
[2017-06-13 12:58] VITALS: BP 138/84
[2017-06-13 13:35] VITALS: BP 169/77
[2017-06-13 14:02] VITALS: BP 167/81
[2017-06-13 16:09] VITALS: BP 180/93
[2017-06-13 20:08] VITALS: BP 168/84
[2017-06-14 00:05] VITALS: BP 157/75
[2017-06-14 02:09] LABS: GLYCOHEMOGLOBIN (HGB A1C) 10.6 % (4.8-5.6)
[2017-06-14 04:10] VITALS: BP 150/84
[2017-06-14 06:32] LABS: ALBUMIN 2.7 g/dL (3.4-5.0); CALCIUM 8.9 mg/dL (8.5-10.1); CREATININE 0.7 mg/dL (0.6-1.0); MAGNESIUM 1.6 mg/dL (1.8-2.4); POTASSIUM 4.1 mmol/L (3.5-5.1); TOTAL BILIRUBIN 0.3 mg/dL (<0.1-1.0); TOTAL PROTEIN 6.4 g/dL (6.4-8.2)
[2017-06-14 08:00] VITALS: BP 177/88
[2017-06-14] MEDS ORDERED: LEVEMIR SUBQ (11:46)
[2017-06-14 16:00] VITALS: BP 134/61
[2017-06-14 21:40] VITALS: BP 131/69
[2017-06-15] VITALS: BP 146/77
[2017-06-15 04:48] VITALS: BP 151/73
[2017-06-15 07:53] VITALS: BP 171/91
[2017-06-15 15:43] VITALS: BP 141/67
[2017-06-15 19:51] VITALS: BP 152/73
[2017-06-16 03:48] LABS: HEMATOCRIT 33.1 % (37.0-47.0); HEMOGLOBIN 10.6 gm/dL (12.0-15.0); MCH 24.6 pg (26.0-34.0); MCHC 32.1 g/dL (28.0-37.0); MCV 76.5 fL (80.0-100.0); PLATELET COUNT 277 thou/uL (150-400); RBC 4.33 mil/uL (4.20-5.00); RDW 18.7 % (10.5-14.5); WBC 8.5 thou/uL (4.0-11.0)
[2017-06-16 03:53] LABS: MANUAL DIFF YES
[2017-06-16 03:59] LABS: CREATININE 0.8 mg/dL (0.6-1.0); POTASSIUM 4.4 mmol/L (3.5-5.1)
[2017-06-16 05:43] VITALS: BP 159/79
[2017-06-16 06:04] LABS: ABSOLUTE NEUTROPHILS 8.2 thou/uL (1.4-8.2); TOTAL CELL COUNT 100
[2017-06-16 06:05] LABS: ANISOCYTOSIS 2+
[2017-06-16 08:00] VITALS: BP 192/62
[2017-06-16 16:00] VITALS: BP 149/75
[2017-06-16 19:30] VITALS: BP 135/66
[2017-06-17 05:10] VITALS: BP 147/79
[2017-06-17 08:00] VITALS: BP 149/78
[2017-06-17] MEDS ORDERED: LEVAQUIN 500 M500 M1 PO (09:49)
[2017-06-17] MEDS ORDERED: PERCOCET 10-321 EACH PO (09:50)
[2017-06-17] MEDS ORDERED: BACTRIM DS TAB1 EACH PO (09:50)
[2017-06-17] MEDS ORDERED: PREDNISONE 20 M20 M1 PO (09:52)
[2017-06-17] MEDS ORDERED: ACIDOPHILUS1 EAC4 PO (09:52)
[2017-06-17 10:58] VITALS: BP 149/78
== END 2017-06-17 14:52 | disposition home health service (06) | DRG 189 ==
LOC: ER 08:39 → 4S 12:08 → EROBS 12:08 → 4S 13:36 → ENTRNSPT 06-17 14:41 → EDTRNSPTSTS 06-17 14:44 → 4S 06-17 14:52
PROVIDERS: Internal Medicine Endocrinology, Diabetes & Metabolism; Nurse Practitioner; Physician Assistant
DX: J96.21 Acute and chronic respiratory failure with hypoxia (principal); E43 Unspecified severe protein-calorie malnutrition; J44.0 Chronic obstructive pulmonary disease with (acute) lower respiratory infection; R65.10 Systemic inflammatory response syndrome (SIRS) of non-infectious origin without acute organ dysfunction; N39.0 Urinary tract infection, site not specified; E11.9 Type 2 diabetes mellitus without complications; I10 Essential (primary) hypertension; J92.9 Pleural plaque without asbestos; Z79.899 Other long term (current) drug therapy; Z88.8 Allergy status to other drugs, medicaments and biological substances; Z86.718 Personal history of other venous thrombosis and embolism; Z93.1 Gastrostomy status; Z68.30 Body mass index [BMI] 30.0-30.9, adult; Z93.0 Tracheostomy status; Z90.49 Acquired absence of other specified parts of digestive tract; Z79.52 Long term (current) use of systemic steroids
CPT/HCPCS: 10100

== ENCOUNTER 2017-07-22 19:04 | Inpatient (IN) | payer OTHER ==
[~2017-07-22] VITALS: Ht 170.2 cm; Wt 99.2 kg
--- NOTE | ~2017-07-22 | EKG ---
[address] [address] ELECTROCARDIOGRAM REPORT Name: CELY TIPTON Room #: 360-P ADM IN M.R.#: [id number] Admission: 07/22/17 Attend Phys: José Miguel Carnes DO Discharge: Date of : 63 Report #: [id number] THIS REPORT FOR: //name// 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
--- NOTE | ~2017-07-22 | HC ---
[facility] [place] [address] CONSULTATION Name: SAEEDCELY Room #: 360- ADM IN M.R.#: [id number] Admission: 07/22/17 Attend Phys: José Miguel Carnes DO Discharge: Date of : 63 Report #: [id number] THIS REPORT FOR: //name// CC: Julio eCsar Carnes DO DATE OF SERVICE: 07/23/2017 PULMONARY CONSULTATION DATE OF SERVICE: 07/23/2017 REFERRING PROVIDER: José Miguel Carnes DO REASON FOR CONSULTATION: Shortness of breath. HISTORY OF PRESENT ILLNESS: Our group was asked to see the patient in consultation while hospitalized in [facility]. A pleasant 52-year-old woman with known history of cryptogenic organizing pneumonia diagnosed several months ago associated with prolonged respiratory failure that required prolonged mechanical ventilatory support, tracheostomy tube placement, had been reasonably stable more recently with some chronic pulmonary fibrosis as a consequence of that prior hospitalization and diseased state; however, had been having some slow taper of her prednisone, recently dropped to 10 mg daily about 1 week ago, noted some increasing shortness of breath, but mostly noticed some worsening of her peripheral neuropathy that was distressing her. She has recently seen her primary care provider who adjusted her gabapentin, but continues to have painful neuropathy and difficulty sensing in her feet. Denies any fevers, chills or sweats. No cough, productive sputum and no chest pains, at this time, is not dyspneic. Of note, the patient had an elevated lactate acid of unclear etiology, later today, has been hemodynamically stable. ALLERGIES: Include ADHESIVE TAPE AND MORPHINE. PAST MEDICAL HISTORY: 1. History of cryptogenic organizing pneumonia with surgical biopsy, received Cytoxan at that time, now on steroid taper. 2. History of chronic hypoxemic respiratory failure due to the above. 3. Possible chronic obstructive pulmonary disease. 4. Diabetes mellitus type 2. 5. Peripheral neuropathy. 6. History of upper extremity deep venous thrombosis. OUTPATIENT MEDICATIONS: Include Levemir, lorazepam p.r.n., famotidine twice daily, gabapentin 100 b.i.d., trazodone, BuSpar, mirtazapine, albuterol, Lasix, [facility] [address] [place] [address] CONSULTATION Name: CLEY TIPTON Room #: 360-P [facility] IN ..#: [id number] Admission: 07/22/17 Attend Phys: José Miguel Carnes DO Discharge: Date of : 63 Report #: [id number] which was recently resumed, hydrocodone, prednisone 10 mg daily. SOCIAL HISTORY: Never smoker, no alcohol consumption. Currently, is medically disabled due to the above. FAMILY HISTORY: Negative for any significant pulmonary disease. REVIEW OF SYSTEMS: CONSTITUTIONAL: No fevers, chills or sweats. ENT: No upper respiratory congestion, rhinorrhea or dysphagia. CARDIOVASCULAR: No chest pains or palpitations. GASTROINTESTINAL: No nausea, vomiting, diarrhea, constipation or abdominal pain. GENITOURINARY: No dysuria, no frequency or hematuria. INTEGUMENT: Denies any rash. MUSCULOSKELETAL: Generalized weakness. No joint pains or swelling. NEUROLOGIC: The patient with peripheral neuropathy, predominantly affecting the lower extremities, more painful of late with some difficulty ambulating as a consequence. PHYSICAL EXAMINATION: VITAL SIGNS: Afebrile, pulse 100 and regular, respiratory rate 18, blood pressure 167/87, oxygen saturation 97% on 3 liters. GENERAL: This is an obese, somewhat cushingoid appearing middle-aged woman in no apparent distress. HEENT: Clear oropharynx, Mallampati 3 airway, no thrush. No erythema. NECK: Supple, no lymphadenopathy. LUNGS: Bilateral inspiratory crackles. No wheezes. CARDIOVASCULAR: Heart regular. No murmurs or gallops. ABDOMEN: Soft, nontender, no masses. EXTREMITIES: With 1+ lower extremity edema. INTEGUMENT: Without rash. LABORATORY DATA: CT scan of the chest PE protocol revealed no evidence of pulmonary embolism, chronic fibrotic changes noted with no acute change. Lower extremity venous Doppler negative for DVT. Chest x-ray today also showed no significant change. Blood cultures are pending. CBC revealed a normal white blood cell count, hemoglobin 12, hematocrit 37, platelet count 330. Chemistry profile is normal except for elevated glucose 49. Lactate is 6.7. Arterial blood gas this morning on 3 liters revealed pH 7.32, pCO2 of 35, pO2 92, bicarbonate 18. Urinalysis is clear. IMPRESSION: 1. Dyspnea, perhaps related to her underlying pain, causing some tachypnea. This seems to be improved and the patient is not in any distress at this time. I doubt it is related to underlying lung disease, but continue with escalated [facility] [address] [place] [address] CONSULTATION Name: CELY TIPTON Room #: 360-P [facility] IN M.R.#: [id number] Admission: 07/22/17 Attend Phys: José Miguel E. Carnes, DO Discharge: Date of : 63 Report #: [id number] steroids as we have, and bronchodilators. 2. Elevated lactic acid with mild metabolic acidosis noted on arterial blood gas, suggest trending, continue with IV hydration, antibiotics, await cultures. 3. Peripheral neuropathy, seems to be very bothersome to the patient, part of it maybe related to poor diabetic control. 4. Chronic hypoxemic respiratory failure. 5. Chronic pulmonary fibrosis secondary to prior history of cryptogenic organizing pneumonia. 6. Severe general debilitation. 7. Diabetes mellitus type 2. SUGGESTIONS: As outlined above, IV fluids, followup radiographs, await cultures. Continue with antibiotics, continue bronchodilators. Continue with slightly escalated steroids, trend lactates and acid base status. We will follow along with you. Thank you for requesting our suggestions. Consider followup echocardiogram. The most recent echocardiogram without significant right ventricular dysfunction noted. By: [id number] Ty Spann MD /nt
[~2017-07-22 19:04] MED LIST changes: +ACIDOPHILUS1 EAC4 PO; +LEVEMIR SUBQ; +PERCOCET 10-321 EACH PO; +PREDNISONE 20 M20 M1 PO
[2017-07-22 19:11] VITALS: BP 194/89
[2017-07-22] MEDS ORDERED: LASIX 40 MG TAB40 M2 PO (19:24)
[2017-07-22] MEDS ORDERED: HYDROCODONE-ACE15 ML PO (19:25)
[2017-07-22 19:37] LABS: ABSOLUTE NEUTROPHILS 6.1 thou/uL (1.4-8.2); BASOPHILS 1.8 % (0.0-2.0); HEMATOCRIT 35.3 % (37.0-47.0); HEMOGLOBIN 11.4 gm/dL (12.0-15.0); LYMPHOCYTES 18.4 % (24.0-44.0); MCH 25.4 pg (26.0-34.0); MCHC 32.4 g/dL (28.0-37.0); MCV 78.2 fL (80.0-100.0); MONOCYTES 7.6 % (1.0-8.0); PLATELET COUNT 326 thou/uL (150-400); POLYS 71.2 % (36.0-66.0); RBC 4.51 mil/uL (4.20-5.00); RDW 20.2 % (10.5-14.5); WBC 8.6 thou/uL (4.0-11.0)
[2017-07-22 19:38] LABS: MANUAL DIFF NO
[2017-07-22 19:44] LABS: ANION GAP 8 mmol/L (7-16); BUN 3 mg/dL (7-18); CALCIUM 8.8 mg/dL (8.5-10.1); CHLORIDE 104 mmol/L (98-107); CO2 25 mmol/L (21-32); CREATININE 0.6 mg/dL (0.6-1.0); GLUCOSE 217 mg/dL (74-106); POTASSIUM 3.7 mmol/L (3.5-5.1); SODIUM 137 mmol/L (136-145)
[2017-07-22 19:53] LABS: ALBUMIN 2.8 g/dL (3.4-5.0); ALKALINE PHOSPHATASE 57 U/L (46-116); SGOT 15 U/L (15-37); SGPT 17 U/L (30-65); TOTAL BILIRUBIN 0.3 mg/dL (<0.1-1.0); TOTAL PROTEIN 6.5 g/dL (6.4-8.2); TROPONIN-I < 0.04 ng/mL (<0.04-0.07)
[2017-07-22 21:16] LABS: URINE BILIRUBIN NEGATIVE (Negative); URINE BLOOD NEGATIVE (Negative); URINE COLOR YELLOW; URINE GLUCOSE-RANDOM* NEGATIVE (Negative); URINE KETONES 1+ (Negative); URINE NITRITE NEGATIVE (Negative); URINE PROTEIN (DIPSTICK) NEGATIVE (Negative); URINE SPECIFIC GRAVITY 1.015 (1.003-1.035); URINE UROBILINOGEN 0.2 E.U./dl (0.2-1.0)
[2017-07-22 21:55] VITALS: BP 171/84
[2017-07-22 22:19] VITALS: BP 155/85
[2017-07-22 22:35] VITALS: BP 163/82
[2017-07-23] VITALS (7 sets, daily range): BP systolic 132–168; BP diastolic 61–89
[2017-07-23 07:21] LABS: ABG SAMPLE TYPE ARTERIAL; BE(vivo) -7.7 mmol/L (-2 to +3); HCO3 17.5 mmol/L (22.0-26.0); LACTATE 5.66 mmol/L (0.5-2.0); O2Hb 95.5 % (92.0-98.0); PCO2 34.6 mmHg (35.0-45.0); PO2 91.9 mmHg (80.0-100.0); pH 7.322 (7.360-7.450); sO2 96.5 % (92.0-98.0); tCO2 18.6 mmol/L (24.0-30.0)
[2017-07-23 07:22] LABS: STICK SITE L.RADIAL
[2017-07-23 11:26] LABS: HEMOGLOBIN 11.5 gm/dL (12.0-15.0)
[2017-07-23 11:30] LABS: HEMATOCRIT 36.8 % (37.0-47.0); MCHC 31.3 g/dL (28.0-37.0); MCV 79.7 fL (80.0-100.0); RBC 4.61 mil/uL (4.20-5.00); WBC 8.6 thou/uL (4.0-11.0)
[2017-07-23 11:45] LABS: CALCIUM 9.1 mg/dL (8.5-10.1); POTASSIUM 4.4 mmol/L (3.5-5.1)
[2017-07-24 03:50] VITALS: BP 151/79
[2017-07-24 07:03] LABS: HEMATOCRIT 31.3 % (37.0-47.0); MCH 25.1 pg (26.0-34.0); MCHC 32.1 g/dL (28.0-37.0); MCV 78.2 fL (80.0-100.0); PLATELET COUNT 319 thou/uL (150-400); RBC 4.01 mil/uL (4.20-5.00); RDW 20.7 % (10.5-14.5); WBC 12.6 thou/uL (4.0-11.0)
[2017-07-24 07:04] LABS: MANUAL DIFF YES
[2017-07-24 07:30] LABS: ALBUMIN 2.6 g/dL (3.4-5.0); CALCIUM 8.9 mg/dL (8.5-10.1); CREATININE 0.6 mg/dL (0.6-1.0); POTASSIUM 4.7 mmol/L (3.5-5.1); TOTAL BILIRUBIN 0.2 mg/dL (<0.1-1.0); TOTAL PROTEIN 6.2 g/dL (6.4-8.2)
[2017-07-24 08:13] VITALS: BP 145/77
[2017-07-24 09:39] LABS: ABSOLUTE NEUTROPHILS 12.1 thou/uL (1.4-8.2); ANISOCYTOSIS 2+; POLYCHROMASIA OCCASIONAL; TOTAL CELL COUNT 100
[2017-07-24 11:51] VITALS: BP 142/72
[2017-07-24 20:00] VITALS: BP 156/74
[2017-07-25 04:21] VITALS: BP 167/92
[2017-07-25 07:10] LABS: HEMATOCRIT 31.8 % (37.0-47.0); HEMOGLOBIN 10.1 gm/dL (12.0-15.0); MCHC 31.6 g/dL (28.0-37.0); MCV 79.1 fL (80.0-100.0); RBC 4.02 mil/uL (4.20-5.00); RDW 20.7 % (10.5-14.5); WBC 11.7 thou/uL (4.0-11.0)
[2017-07-25 07:26] LABS: CALCIUM 8.6 mg/dL (8.5-10.1); CREATININE 0.6 mg/dL (0.6-1.0)
[2017-07-25 07:40] VITALS: BP 170/92
[2017-07-25 11:44] VITALS: BP 185/93
[2017-07-25 16:12] VITALS: BP 172/83
[2017-07-25 19:15] VITALS: BP 158/78
[2017-07-26 04:15] VITALS: BP 146/81
[2017-07-26 07:35] LABS: ABSOLUTE NEUTROPHILS 6.8 thou/uL (1.4-8.2); BASOPHILS 0.1 % (0.0-2.0); EOSINOPHILS 0.1 % (0.0-3.0); HEMATOCRIT 32.9 % (37.0-47.0); HEMOGLOBIN 10.4 gm/dL (12.0-15.0); LYMPHOCYTES 10.4 % (24.0-44.0); MCH 24.9 pg (26.0-34.0); MCHC 31.6 g/dL (28.0-37.0); MCV 78.8 fL (80.0-100.0); PLATELET COUNT 361 thou/uL (150-400); POLYS 83.4 % (36.0-66.0); RBC 4.17 mil/uL (4.20-5.00); RDW 20.2 % (10.5-14.5); WBC 8.1 thou/uL (4.0-11.0)
[2017-07-26 07:47] LABS: MANUAL DIFF NO
[2017-07-26 07:53] LABS: CALCIUM 8.5 mg/dL (8.5-10.1); CREATININE 0.7 mg/dL (0.6-1.0); MAGNESIUM 1.9 mg/dL (1.8-2.4); POTASSIUM 3.8 mmol/L (3.5-5.1)
[2017-07-26 08:11] VITALS: BP 152/70
[2017-07-26] MEDS ORDERED: AUGMENTIN 500-1 EACH PO (09:40)
[2017-07-26] MEDS ORDERED: AMLODIPINE BESYL5 M1 PO (09:41)
[2017-07-26] MEDS ORDERED: HUMALOG100 UNIT/1 SUBQ (09:42)
[2017-07-26] MEDS ORDERED: PREDNISONE 10 M10 MG PO (09:44)
[2017-07-26 15:26] VITALS: BP 152/70
== END 2017-07-26 18:14 | disposition home or self-care (01) | DRG 189 ==
LOC: ER 19:04 → 3W 22:00 → EROBS 22:00 → 3W 22:56 → ENTRNSPT 07-26 18:08 → 3W 07-26 18:14
PROVIDERS: Internal Medicine Pulmonary Disease; Nurse Practitioner Acute Care; Nurse Practitioner Family; Physician Assistant; Registered Nurse
DX: J96.21 Acute and chronic respiratory failure with hypoxia (principal); J44.1 Chronic obstructive pulmonary disease with (acute) exacerbation; J84.116 Cryptogenic organizing pneumonia; I10 Essential (primary) hypertension; J84.10 Pulmonary fibrosis, unspecified; E11.42 Type 2 diabetes mellitus with diabetic polyneuropathy; D64.9 Anemia, unspecified; K21.9 Gastro-esophageal reflux disease without esophagitis; E11.65 Type 2 diabetes mellitus with hyperglycemia; T38.0X5A Adverse effect of glucocorticoids and synthetic analogues, initial encounter; Z79.4 Long term (current) use of insulin; Z86.718 Personal history of other venous thrombosis and embolism; Z79.01 Long term (current) use of anticoagulants; Z90.49 Acquired absence of other specified parts of digestive tract; Z93.1 Gastrostomy status; Z93.0 Tracheostomy status; Y92.89 Other specified places as the place of occurrence of the external cause; Z87.01 Personal history of pneumonia (recurrent); Z79.899 Other long term (current) drug therapy; Z88.6 Allergy status to analgesic agent; Z91.041 Radiographic dye allergy status
CPT/HCPCS: 10779

== ENCOUNTER 2017-10-03 17:58 | Emergency (ER) | payer OTHER ==
[~2017-10-03] VITALS: Ht 167.6 cm; Wt 113.4 kg
--- NOTE | ~2017-10-03 | EKG ---
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
[~2017-10-03 17:58] MED LIST changes: +AMLODIPINE BESYL5 M1 PO; +AUGMENTIN 500-1 EACH PO; +HYDROCODONE-ACE15 ML PO; +LASIX 40 MG TAB40 M2 PO
[2017-10-03 18:51] VITALS: BP 171/108
[2017-10-03 20:43] LABS: BE(vivo) -0.4 mmol/L (-2 to +3); HCO3 23.3 mmol/L (22.0-26.0); PCO2 35.4 mmHg (35.0-45.0); PO2 67.9 mmHg (80.0-100.0); pH 7.437 (7.360-7.450); sO2 94.3 % (92.0-98.0)
[2017-10-03 20:52] LABS: HEMATOCRIT 36.5 % (37.0-47.0); MCHC 32.8 g/dL (28.0-37.0); PLATELET COUNT 294 thou/uL (150-400); RDW 18.6 % (10.5-14.5); WBC 6.8 thou/uL (4.0-11.0)
[2017-10-03 21:01] LABS: ANION GAP 10 mmol/L (7-16); BUN 5 mg/dL (7-18); CALCIUM 8.7 mg/dL (8.5-10.1); CHLORIDE 102 mmol/L (98-107); CO2 27 mmol/L (21-32); CREATININE 0.7 mg/dL (0.6-1.0); GLUCOSE 247 mg/dL (74-106); POTASSIUM 3.8 mmol/L (3.5-5.1); SODIUM 139 mmol/L (136-145)
[2017-10-03 21:09] LABS: ALBUMIN 2.9 g/dL (3.4-5.0); MAGNESIUM 1.6 mg/dL (1.8-2.4); SGOT 22 U/L (15-37); SGPT 31 U/L (30-65); TOTAL BILIRUBIN 0.1 mg/dL (<0.1-1.0); TOTAL PROTEIN 6.6 g/dL (6.4-8.2); TROPONIN-I < 0.04 ng/mL (<0.06)
[2017-10-03 21:24] LABS: ABSOLUTE NEUTROPHILS 4.4 thou/uL (1.4-8.2); ANISOCYTOSIS 2+; ATYPICAL LYMPHS 3 %; LARGE PLATELETS SEVERAL
[2017-10-04] MEDS ORDERED: NEURONTIN 300300 M1 PO (00:19)
[2017-10-04] MEDS ORDERED: OXYCONTIN20 M1 PO (00:46)
[2017-10-04 05:55] LABS: HEMATOCRIT 40.2 % (37.0-47.0); HEMOGLOBIN 12.4 gm/dL (12.0-15.0); MCH 24.5 pg (26.0-34.0); MCHC 30.9 g/dL (28.0-37.0); MCV 79.2 fL (80.0-100.0); RBC 5.07 mil/uL (4.20-5.00); RDW 18.1 % (10.5-14.5); WBC 5.8 thou/uL (4.0-11.0)
[2017-10-04 06:14] LABS: CALCIUM 8.7 mg/dL (8.5-10.1); CREATININE 0.8 mg/dL (0.6-1.0); POTASSIUM 4.4 mmol/L (3.5-5.1)
[2017-10-04 19:20] VITALS: BP 127/82
[2018-01-20] MEDS ORDERED: AUGMENTIN 875-1 EACH PO (16:03)
[2018-01-20] MEDS ORDERED: AMLODIPINE BESYL5 M1 PO (16:31)
[2018-01-20] MEDS ORDERED: HUMALOG100 UNIT/1 SUBQ (16:33)
[2018-01-20] MEDS ORDERED: PREDNISONE 10 M10 M1 PO (16:35)
== END 2017-10-04 19:28 | disposition short-term general hospital (02) ==
LOC: ER 17:58 → EROBS 21:52 → ER 21:52 → EROBS 23:27
PROVIDERS: Emergency Medicine; Nurse Practitioner Family
DX: J18.9 Pneumonia, unspecified organism (principal); J98.4 Other disorders of lung; H40.053 Ocular hypertension, bilateral; H57.12 Ocular pain, left eye; R07.0 Pain in throat; J44.9 Chronic obstructive pulmonary disease, unspecified; E11.9 Type 2 diabetes mellitus without complications; I10 Essential (primary) hypertension; J20.9 Acute bronchitis, unspecified; Z90.49 Acquired absence of other specified parts of digestive tract; Z91.048 Other nonmedicinal substance allergy status; Z88.6 Allergy status to analgesic agent

== ENCOUNTER 2017-12-01 16:27 | Emergency (ER) | payer OTHER ==
[~2017-12-01] VITALS: Ht 170.2 cm; Wt 95.3 kg
[~2017-12-01 16:27] MED LIST changes: +NEURONTIN 300300 M1 PO; +OXYCONTIN20 M1 PO
[2017-12-01 16:45] VITALS: BP 110/80
[2018-01-20] MEDS ORDERED: AUGMENTIN 875-1 EACH PO (16:03)
[2018-01-20] MEDS ORDERED: AMLODIPINE BESYL5 M1 PO (16:31)
[2018-01-20] MEDS ORDERED: HUMALOG100 UNIT/1 SUBQ (16:33)
[2018-01-20] MEDS ORDERED: PREDNISONE 10 M10 M1 PO (16:35)
== END 2017-12-01 17:17 | disposition home or self-care (01) ==
LOC: ER 16:27
DX: Z53.21 Procedure and treatment not carried out due to patient leaving prior to being seen by health care provider (principal)

== ENCOUNTER 2018-01-22 04:06 | Inpatient (IN) | payer OTHER ==
[~2018-01-22] VITALS: Ht 152.4 cm; Wt 90.7 kg
--- NOTE | ~2018-01-22 | HC ---
[facility] [place] [address] CONSULTATION Name: JOSE CARLOSZaneCELY Room #: 453-P [facility] IN M.R.#: [id number] Admission: 01/22/18 Attend Phys: Wilman Vazquez MD Discharge: Date of : 63 Report #: [id number] THIS REPORT FOR: //name// CC: Julio Ceasr Mendes DATE OF SERVICE: 01/22/2018 REASON FOR CONSULTATION: Follow up pneumonia and right first toe infection. HISTORY OF PRESENT ILLNESS: The patient was just discharged on 01/20/2018 where she was diagnosed with right first toe soft tissue infection along with pneumonitis and right chest fluid collection. She underwent bronchoscopy with cultures negative to date. Pulmonary Medicine was consulted. Dr. Guajardo evaluated the patient and desired to have her go as an outpatient for followup and further workup of her right chest fluid collection after culture results were back from her bronchoscopy. Attempt at Podiatry evaluation failed during that hospitalization. She was then set up to go and follow up with them as an outpatient. She was continued on Zosyn through the hospital stay, then switched to Augmentin after her cultures were negative at the time of discharge. She was home for 24 hours, developed further shortness of breath and weakness. Therefore, was rehospitalized for further evaluation. No fever, chills or sweats. No nausea, vomiting or diarrhea. ALLERGIES: ADHESIVE TAPE, LISINOPRIL, MORPHINE. MEDICATIONS: As noted on her MAR, which were reviewed including prednisone taper, Augmentin, Cardizem, Norvasc, insulin. PAST MEDICAL HISTORY, FAMILY HISTORY, AND SOCIAL HISTORY: Unchanged from previous consultation. REVIEW OF SYSTEMS: As noted above. PHYSICAL EXAMINATION: VITAL SIGNS: Afebrile, hemodynamically stable. HEENT: Unremarkable. CHEST: Coarse mostly in the right base posteriorly. No consolidation. HEART: Regular. ABDOMEN: Soft, obese, and nontender. No hepatosplenomegaly or mass. EXTREMITIES: Right first toe had a subungual hematoma and eschar to the distal aspect. No soft tissue inflammation to the foot or evidence of advancing cellulitis. There is no drainage. LABORATORY STUDIES: Chest x-ray: Improved bilateral pulmonary infiltrates, greatest in the right base. Hemoglobin 11.9, WBC 10.7, platelet count 387,000. [address] [address] CONSULTATION Name: CELY TIPTON Room #: 453-P [facility] IN M.R.#: [id number] Admission: 01/22/18 Attend Phys: Wilman Vazquez MD Discharge: Date of : 63 Report #: [id number] Differential unremarkable. BNP 291. Sodium 140, potassium 3.5, bicarb of 29, creatinine 1.1. Urinalysis unremarkable. IMPRESSION: Generalized weakness and shortness of breath. She remains on 4 liters of oxygen per nasal cannula. So far no new issues have been identified. May be related to her prednisone taper. PLAN: I would recommend continuing current antibiotic program with increase in her steroid dosing back up to 40 mg a day. We will see how she does over the next 24-48 hours. We will make adjustments accordingly. <ELECTRONICALLY SIGNED> By: Mansoor Pringle MD 01/23/18 0819 1517 2333 Mansoor Pringle MD /nt
--- NOTE | ~2018-01-22 | EKG ---
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 : 1965 Requested By: Megan Reeves Order Number: [id number] MD: Reggie Baer Measurements Intervals [place] Rate: 109 P: 25 ME: 134 QRS: 15 QRSD: 78 T: 105 QT: 331 QTc: 446 Interpretive Statements Sinus tachycardia Nonspecific T abnormalities, lateral leads Compared to ECG 01/20/2018 08:42:40 No significant change was found Electronically Signed On 01-22-2018 8:11:23 CDT by Reggie Baer [email or web address] <ELECTRONICALLY SIGNED> By: Reggie Baer MD, [facility] 01/22/1811 0549 0549 Reggie Baer MD, [facility] /EPI
[~2018-01-22 04:06] MED LIST changes: +AUGMENTIN 875-1 EACH PO; +PREDNISONE 10 M10 M1 PO
[2018-01-22 04:12] VITALS: BP 187/97
[2018-01-22 04:43] LABS: URINE BILIRUBIN NEGATIVE (Negative); URINE BLOOD NEGATIVE (Negative); URINE CLARITY CLEAR; URINE COLOR YELLOW; URINE GLUCOSE-RANDOM* NEGATIVE (Negative); URINE KETONES NEGATIVE (Negative); URINE NITRITE-REFLEX NEGATIVE (Negative); URINE PROTEIN (DIPSTICK) NEGATIVE (Negative); URINE SPECIFIC GRAVITY <= 1.005 (1.005-1.035); URINE UROBILINOGEN 0.2 E.U./dl (0.2-1.0)
[2018-01-22 04:45] LABS: URINE LEUKOCYTES-REFLEX 1+ (Negative)
[2018-01-22 04:46] LABS: HEMATOCRIT 37.5 % (37.0-47.0); HEMOGLOBIN 11.9 gm/dL (12.0-15.0); MCH 23.7 pg (26.0-34.0); MCHC 31.8 g/dL (28.0-37.0); MCV 74.7 fL (80.0-100.0); RBC 5.03 mil/uL (4.20-5.00); RDW 17.8 % (10.5-14.5); WBC 10.7 thou/uL (4.0-11.0)
[2018-01-22 04:47] LABS: PLATELET COUNT 387 thou/uL (150-400)
[2018-01-22 04:55] LABS: ANION GAP 6 mmol/L (7-16); BUN 15 mg/dL (7-18); CALCIUM 9.1 mg/dL (8.5-10.1); CHLORIDE 105 mmol/L (98-107); CO2 29 mmol/L (21-32); CREATININE 1.1 mg/dL (0.6-1.0); GLUCOSE 93 mg/dL (74-106); POTASSIUM 3.5 mmol/L (3.5-5.1); SODIUM 140 mmol/L (136-145)
[2018-01-22 05:03] LABS: BACTERIA-REFLEX 1-9 Few /HPF (None Seen); CASTS None Seen /LPF (None Seen); CRYSTALS None Seen /LPF (None Seen); SQUAMOUS 4-10 Moderate /LPF (0-3); URINE RBC 0-2 Rare /HPF (0-2); URINE WBC-REFLEX 6-15 Few /HPF (0-5)
[2018-01-22 05:04] LABS: TROPONIN-I < 0.04 ng/mL (<0.06)
[2018-01-22 05:18] LABS: ABSOLUTE NEUTROPHILS 7.8 thou/uL (1.4-8.2)
[2018-01-22 05:19] LABS: ANISOCYTOSIS 1+; LARGE PLATELETS OCCASIONAL
[2018-01-22 07:19] VITALS: BP 158/84
[2018-01-22 07:50] VITALS: BP 164/84
[2018-01-22 08:14] VITALS: BP 150/87
[2018-01-22 16:47] VITALS: BP 152/84
[2018-01-22 20:00] VITALS: BP 147/79
[2018-01-23 04:00] VITALS: BP 148/85
[2018-01-23 05:27] LABS: HEMATOCRIT 34.1 % (37.0-47.0); HEMOGLOBIN 10.7 gm/dL (12.0-15.0); MCH 23.6 pg (26.0-34.0); MCHC 31.2 g/dL (28.0-37.0); MCV 75.7 fL (80.0-100.0); RBC 4.51 mil/uL (4.20-5.00); RDW 17.6 % (10.5-14.5); WBC 7.9 thou/uL (4.0-11.0)
[2018-01-23 05:44] LABS: CALCIUM 8.6 mg/dL (8.5-10.1)
[2018-01-23 08:33] VITALS: BP 143/75
[2018-01-23 16:21] VITALS: BP 148/77
[2018-01-23 19:47] VITALS: BP 158/74
[2018-01-24 04:30] VITALS: BP 146/73
[2018-01-24 05:51] LABS: HEMATOCRIT 34.9 % (37.0-47.0); HEMOGLOBIN 10.9 gm/dL (12.0-15.0); MCH 23.7 pg (26.0-34.0); MCHC 31.3 g/dL (28.0-37.0); MCV 75.8 fL (80.0-100.0); RBC 4.61 mil/uL (4.20-5.00); RDW 17.3 % (10.5-14.5); WBC 8.3 thou/uL (4.0-11.0)
[2018-01-24 06:00] LABS: CALCIUM 8.7 mg/dL (8.5-10.1); MAGNESIUM 2.1 mg/dL (1.8-2.4); POTASSIUM 3.8 mmol/L (3.5-5.1)
[2018-01-24 08:37] VITALS: BP 157/75
[2018-01-24 12:41] VITALS: BP 157/75
== END 2018-01-24 13:55 | disposition home or self-care (01) | DRG 197 ==
LOC: ER 04:06 → EROBS 05:59 → 4W 05:59 → ENTRNSPT 01-24 13:48 → EDTRNSPTSTS 01-24 13:51 → 4W 01-24 13:55
PROVIDERS: Emergency Medicine; Internal Medicine
DX: J84.116 Cryptogenic organizing pneumonia (principal); N39.0 Urinary tract infection, site not specified; G72.0 Drug-induced myopathy; I10 Essential (primary) hypertension; F41.9 Anxiety disorder, unspecified; J44.9 Chronic obstructive pulmonary disease, unspecified; D86.9 Sarcoidosis, unspecified; Z60.2 Problems related to living alone; E11.40 Type 2 diabetes mellitus with diabetic neuropathy, unspecified; T38.0X5A Adverse effect of glucocorticoids and synthetic analogues, initial encounter; Z87.01 Personal history of pneumonia (recurrent); Z93.0 Tracheostomy status; Z93.1 Gastrostomy status; Z86.718 Personal history of other venous thrombosis and embolism; Z90.49 Acquired absence of other specified parts of digestive tract; Z79.899 Other long term (current) drug therapy; Z79.4 Long term (current) use of insulin; Z88.6 Allergy status to analgesic agent; Z88.8 Allergy status to other drugs, medicaments and biological substances; Z91.048 Other nonmedicinal substance allergy status; Y92.89 Other specified places as the place of occurrence of the external cause
CPT/HCPCS: 10047

== ENCOUNTER 2018-02-28 13:09 | Emergency (ER) | payer OTHER ==
[~2018-02-28] VITALS: Ht 160 cm; Wt 90.7 kg
--- NOTE | ~2018-02-28 | EKG ---
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[facility] : 1965 Requested By: Megan Reeves Order Number: [id number] MD: Reggie Baer Measurements Intervals [place] Rate: 99 P: 32 MT: 127 QRS: 11 QRSD: 82 T: 58 QT: 343 QTc: 441 Interpretive Statements Sinus rhythm Probable left atrial enlargement Left ventricular hypertrophy Compared to ECG 01/22/2018 05:49:26 Sinus tachycardia no longer present T-wave abnormality no longer present Electronically Signed On 02-28-2018 16:32:19 CDT by Reggie Baer [email or web address] <ELECTRONICALLY SIGNED> By: Reggie Baer MD, [facility] 02/28/18 1632 1323 1324 Reggie Baer MD, [facility] /EPI
[2018-02-28 14:43] LABS: HEMATOCRIT 40.9 % (37.0-47.0); HEMOGLOBIN 13.1 gm/dL (12.0-15.0); MCH 24.2 pg (26.0-34.0); MCV 75.6 fL (80.0-100.0); PLATELET COUNT 312 thou/uL (150-400); RBC 5.41 mil/uL (4.20-5.00); RDW 18.6 % (10.5-14.5); WBC 9.8 thou/uL (4.0-11.0)
[2018-02-28 14:51] LABS: ANION GAP 10 mmol/L (7-16); BUN 12 mg/dL (7-18); CALCIUM 9.8 mg/dL (8.5-10.1); CHLORIDE 100 mmol/L (98-107); CO2 28 mmol/L (21-32); CREATININE 0.8 mg/dL (0.6-1.0); GLUCOSE 198 mg/dL (74-106); POTASSIUM 3.5 mmol/L (3.5-5.1); SODIUM 138 mmol/L (136-145)
[2018-02-28 14:59] LABS: TROPONIN-I < 0.04 ng/mL (<0.06)
[2018-02-28 15:11] LABS: ABSOLUTE NEUTROPHILS 5.7 thou/uL (1.4-8.2)
[2018-02-28 15:12] LABS: ANISOCYTOSIS 1+
== END 2018-02-28 17:20 | disposition home or self-care (01) ==
LOC: ER 13:09
PROVIDERS: Emergency Medicine
DX: R07.89 Other chest pain (principal); G89.29 Other chronic pain; M54.9 Dorsalgia, unspecified; I10 Essential (primary) hypertension; F41.9 Anxiety disorder, unspecified; E11.9 Type 2 diabetes mellitus without complications; J44.9 Chronic obstructive pulmonary disease, unspecified; Z90.49 Acquired absence of other specified parts of digestive tract; Z79.4 Long term (current) use of insulin; Z88.8 Allergy status to other drugs, medicaments and biological substances; Z88.6 Allergy status to analgesic agent

== ENCOUNTER 2018-05-09 12:24 | Emergency (ER) | payer OTHER ==
[~2018-05-09] VITALS: Ht 172.7 cm; Wt 99.8 kg
[2018-05-09 13:11] LABS: CALCIUM 9.3 mg/dL (8.5-10.1); CREATININE 0.9 mg/dL (0.6-1.0); POTASSIUM 3.4 mmol/L (3.5-5.1)
[2018-05-09 13:17] LABS: ABSOLUTE NEUTROPHILS 5.5 thou/uL (1.4-8.2); BASOPHILS 1.1 % (0.0-2.0); EOSINOPHILS 2.6 % (0.0-3.0); HEMATOCRIT 40.6 % (37.0-47.0); HEMOGLOBIN 13.4 gm/dL (12.0-15.0); LYMPHOCYTES 23.3 % (24.0-44.0); MCH 25.2 pg (26.0-34.0); MCHC 33.2 g/dL (28.0-37.0); MCV 75.9 fL (80.0-100.0); MONOCYTES 6.1 % (1.0-8.0); PLATELET COUNT 292 thou/uL (150-400); POLYS 66.9 % (36.0-66.0); RBC 5.34 mil/uL (4.20-5.00); RDW 18.8 % (10.5-14.5); WBC 8.2 thou/uL (4.0-11.0)
[2018-05-09 13:48] LABS: ANISOCYTOSIS 2+; HYPOCHROMASIA 1+; MICROCYTES 1+
[2018-05-09 13:49] LABS: LARGE PLATELETS OCCASIONAL; PLATELET ESTIMATE NORMAL
[2018-05-09] MEDS ORDERED: REGLAN 10 MG TA10 MG PO (14:11)
== END 2018-05-09 14:43 | disposition home or self-care (01) ==
LOC: ER 12:24
PROVIDERS: Physician Assistant
DX: S00.93XA Contusion of unspecified part of head, initial encounter (principal); I10 Essential (primary) hypertension; E11.9 Type 2 diabetes mellitus without complications; J44.9 Chronic obstructive pulmonary disease, unspecified; F41.9 Anxiety disorder, unspecified; Z90.49 Acquired absence of other specified parts of digestive tract; Z88.5 Allergy status to narcotic agent; Z88.8 Allergy status to other drugs, medicaments and biological substances; X58.XXXA Exposure to other specified factors, initial encounter; Y93.89 Activity, other specified; Y92.89 Other specified places as the place of occurrence of the external cause; Y99.8 Other external cause status

== ENCOUNTER → 2018-05-26 | Outpatient (CLI) | payer OTHER ==
[~2018-05-26] MED LIST changes: +REGLAN 10 MG TA10 MG PO
== END ==
LOC: RAD 14:34
DX: J84.9 Interstitial pulmonary disease, unspecified (principal); I10 Essential (primary) hypertension; J44.9 Chronic obstructive pulmonary disease, unspecified; E11.9 Type 2 diabetes mellitus without complications

== ENCOUNTER 2018-09-07 12:36 | Emergency (ER) | payer OTHER ==
[~2018-09-07] VITALS: Ht 160 cm; Wt 90.7 kg
[2018-09-07 15:41] VITALS: BP 154/82
== END 2018-09-07 15:43 | disposition home or self-care (01) ==
LOC: ER 12:36
DX: R51 Headache (principal); I10 Essential (primary) hypertension; F41.9 Anxiety disorder, unspecified; E11.9 Type 2 diabetes mellitus without complications; J44.9 Chronic obstructive pulmonary disease, unspecified; Z90.49 Acquired absence of other specified parts of digestive tract; Z91.048 Other nonmedicinal substance allergy status; Z88.8 Allergy status to other drugs, medicaments and biological substances; Z88.5 Allergy status to narcotic agent; Z86.718 Personal history of other venous thrombosis and embolism; Z79.4 Long term (current) use of insulin

== ENCOUNTER 2018-10-13 07:39 | Inpatient (IN) | payer OTHER ==
[2018-10-13] VITALS (8 sets, daily range): BP systolic 145–186; BP diastolic 72–90
[~2018-10-13] VITALS: Ht 170.2 cm; Wt 112.1 kg
[~2018-10-13 07:39] MED LIST changes: -ALBUTEROL2.5 MG/31 INH
--- NOTE | 2018-10-13 07:53 | NUR ---
RT AT BEDSIDE
[2018-10-13 08:01] LABS: BE(vivo) 0.3 mmol/L (-2 to +3); HCO3 24.9 mmol/L (22.0-26.0); PCO2 40.2 mmHg (35.0-45.0); PO2 108.5 mmHg (80.0-100.0)
[2018-10-13 08:20] LABS: BASOPHILS 0.7 % (0.0-2.0); EOSINOPHILS 0.2 % (0.0-3.0); HEMATOCRIT 39.8 % (37.0-47.0); HEMOGLOBIN 12.8 gm/dL (12.0-15.0); LYMPHOCYTES 11.9 % (24.0-44.0); MCH 24.9 pg (26.0-34.0); MCHC 32.2 g/dL (28.0-37.0); MCV 77.5 fL (80.0-100.0); MONOCYTES 6.4 % (1.0-8.0); PLATELET COUNT 194 thou/uL (150-400); POLYS 80.8 % (36.0-66.0); RBC 5.14 mil/uL (4.20-5.00); RDW 17.6 % (10.5-14.5); WBC 11.2 thou/uL (4.0-11.0)
[2018-10-13 08:27] LABS: ANION GAP 11 mmol/L (7-16); BUN 7 mg/dL (7-18); CALCIUM 8.6 mg/dL (8.5-10.1); CHLORIDE 95 mmol/L (98-107); CO2 26 mmol/L (21-32); CREATININE 0.9 mg/dL (0.6-1.0); GLUCOSE 375 mg/dL (74-106); POTASSIUM 3.8 mmol/L (3.5-5.1); SODIUM 132 mmol/L (136-145)
[2018-10-13 08:35] LABS: ALBUMIN 2.6 g/dL (3.4-5.0); MAGNESIUM 1.6 mg/dL (1.8-2.4); SGOT 25 U/L (15-37); SGPT 21 U/L (30-65); TOTAL BILIRUBIN 0.2 mg/dL (<0.1-1.0); TOTAL PROTEIN 6.8 g/dL (6.4-8.2); TROPONIN-I <0.06 ng/mL (<0.06)
--- NOTE | 2018-10-13 08:41 | EKG ---
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
[2018-10-13 09:58] LABS: URINE BILIRUBIN NEGATIVE (Negative); URINE BLOOD TRACE (Negative); URINE CLARITY CLEAR; URINE COLOR YELLOW; URINE GLUCOSE-RANDOM* 3+ (Negative); URINE KETONES 2+ (Negative); URINE NITRITE-REFLEX NEGATIVE (Negative); URINE PROTEIN (DIPSTICK) 1+ (Negative); URINE SPECIFIC GRAVITY 1.025 (1.005-1.035); URINE UROBILINOGEN 0.2 E.U./dl (0.2-1.0)
[2018-10-13 09:59] LABS: URINE LEUKOCYTES-REFLEX NEGATIVE (Negative)
[2018-10-13 10:16] LABS: BACTERIA-REFLEX >30 Many /HPF (None Seen); CASTS None Seen /LPF (None Seen); CRYSTALS None Seen /LPF (None Seen); SQUAMOUS 0-3 Few /LPF (0-3); URINE RBC 0-2 Rare /HPF (0-2); URINE WBC-REFLEX 0-5 Rare /HPF (0-5)
[2018-10-13] MEDS ORDERED: PREDNISONE 20 M20 MG PO (11:55)
[2018-10-13] MEDS ORDERED: LOSARTAN PO (11:57)
[2018-10-13] MEDS ORDERED: NOVOLOG100 UNIT/1 SUBQ (15:51)
--- NOTE | 2018-10-13 18:44 | NUR ---
VSS REMAINS ST RATE 100-110, LUNGS COURSE, O2 SAT 6L IS 97%, PT STATES BREATHING EASIER WITH RT TX BUT STILL MARIN. ENEIDA INTACT, DRAINING 1999 THRU ENEIDA, BLOOD SUGARS HIGH, 568 FOR DINNER, DR CALLAHAN AWARE AND ORDERS RECEEIVED WILL CONTINUE TO MONITER AND CARE FOR PTPER PLAN OF CARE
[2018-10-13 23:11] LABS: GLYCOHEMOGLOBIN (HGB A1C) 14.1 % (4.8-5.6)
[2018-10-14 03:24] VITALS: BP 139/83
--- NOTE | 2018-10-14 03:35 | NUR ---
ASSUMED CARE 1899. VSS. ASSMENT CHARTED. A&OX4. VERY SUPPORTIVE FAMILY AT SHIFT CHANGE BY BEDSIDE. PT DENIES ANY PAIN. BREATHING EASIER WITH RT TREATMENTS BUT STILL MARIN. STILL NEED SPUTUM SAMPLE, PT STATES HER COUGH IS DRY, COARSE THROUGHOUT [address], I&O CHARTED. BLOOD SUGAR 395 TREATED PER EMAR LANTUS AND SLIDING SCALE. ABX, STEROIDS, FLUIDS PER EMAR. PLAN FOR AM LABS. WILL COTNINUE TO MONITOR AND WITH POC.
[2018-10-14 07:02] VITALS: BP 152/85
[2018-10-14 09:14] LABS: ABSOLUTE NEUTROPHILS 12.6 thou/uL (1.4-8.2); BASOPHILS 0.2 % (0.0-2.0); EOSINOPHILS 0.1 % (0.0-3.0); HEMATOCRIT 38.5 % (37.0-47.0); HEMOGLOBIN 12.2 gm/dL (12.0-15.0); LYMPHOCYTES 2.4 % (24.0-44.0); MCH 24.5 pg (26.0-34.0); MCHC 31.6 g/dL (28.0-37.0); MCV 77.5 fL (80.0-100.0); MONOCYTES 1.4 % (1.0-8.0); PLATELET COUNT 186 thou/uL (150-400); POLYS 95.9 % (36.0-66.0); RBC 4.97 mil/uL (4.20-5.00); RDW 17.8 % (10.5-14.5); WBC 13.1 thou/uL (4.0-11.0)
[2018-10-14 09:24] LABS: CALCIUM 8.6 mg/dL (8.5-10.1); CREATININE 0.9 mg/dL (0.6-1.0); MAGNESIUM 2.3 mg/dL (1.8-2.4); POTASSIUM 4.4 mmol/L (3.5-5.1)
[2018-10-14 11:34] VITALS: BP 143/71
--- NOTE | 2018-10-14 15:03 | NUR ---
VSS REMAINS NSR TO ST 95-115, LUNGS REMAIN COURSE, NON PRODUCTIVE COUGH. PT DOES GET MARIN WITH MINIMAL EXERTION TO CHAIR.PT TESTED POSITIVE FOR INFLUENZA A, DROPLET PRECAUTIONS INTACT. GOOD URINE OUTPUT THROUGH MONIQUE. BLOOD SUGARS HAVE BEEN IN LOW 300'S. COVERED WITH HIGH SLIDING SCALE. WILL CONTINUE TO MONITER AND CARE FOR PT PER PLAN OF CARE
[2018-10-14 16:45] VITALS: BP 143/58
[2018-10-14 19:52] VITALS: BP 142/65
[2018-10-15 01:22] VITALS: BP 142/65
--- NOTE | 2018-10-15 03:33 | NUR ---
ASSUMED CARE 1899. VSS. ASSESSMENT CHARTED. PT GETS ST LOW 100'S WITH BREATHING TREATMENTS. PT C/O BACK PAIN CONTROLED WITH PRN PAIN MEDS. BS 400'S, INSULIN GIVEN PER EMAR, MULTIPLE PRESSURE RIVETER OPERATOR NOTIFIED, ORDERS GIVEN. RECHECK BS STILL ELEVATED, MULTIPLE PRESSURE RIVETER OPERATOR NOTIFIED, ORDERS GIVEN- NONSCHEDULED SLIDING SCALE PER EMAR. PT LEJ AND RAC IV'S WERE INFILTRATED, D/C'D AND RWRIST PLACED. FLUIDS AND ABX PER EMAR. TAPERING STEROIDS. LUNGS COARSE, NONPRODUCTIVE COUGH, 6L NC. DROPLET PRECATIONS IN PLACE- FLU A+. PT WEAK BUT TRANSFERED CHAIR TO BED STANDBY. WILL CONTINUE TO MONITOR AND WITH POC.
[2018-10-15 05:32] VITALS: BP 133/58
[2018-10-15 08:07] VITALS: BP 137/70
--- NOTE | 2018-10-15 10:27 | NUR ---
Initial assess for high BMI however ht and weight inaccurately recorded. Pt confirms ht as 5'7" and wts trend 190-215 lb, not 243 lb. Corrected height in computer. Low nutrition risk
[2018-10-15 11:11] VITALS: BP 140/72
--- NOTE | 2018-10-15 12:13 | NUR ---
Met with patient she used to work in [employer] at [employer]. She resides at home with dtr with 8 steps to enter apt. She has home oxygen sleepcair 2 liters usu just at night. She has a walker for community ambulation as needed. She admits with pna/flu. Hopes to dc home once stable. Therapy evals in process.
--- NOTE | 2018-10-15 19:57 | HC ---
[facility] [place] [address] CONSULTATION Name: CELY TIPTON Room #: 219-P ADM IN M.R.#: [id number] Admission: 10/13/18 Attend Phys: Denis Robertson MD Discharge: Date of : 63 Report #: [id number] THIS REPORT FOR: //name// CC: Julio Cesar Robertson DATE OF SERVICE: 10/13/2018 PRIMARY CARE PHYSICIAN: Dr. Julio Cesar Caro. REFERRAL PHYSICIAN: Dr. Robertson. REASON FOR REFERRAL: Progressive dyspnea. HISTORY OF PRESENT ILLNESS: The patient is a 53-year-old -Cuban female well known to the Pulmonary Service, presents to the Emergency Room with progressive dyspnea. A Pulmonary consultation was requested. The patient has a complicated pulmonary history. In 11/2006, she was diagnosed with severe pneumonia and subsequently open lung biopsy showed cryptogenic organizing pneumonia. She has been on high dose corticosteroids, which she was being tapered slowly over the last few months. She has known pulmonary fibrosis along with bronchiectasis on her recent CT chest. She had a previous bronchoscopy along with open lung biopsy. As mentioned, she has been on chronic steroids and has had accelerated adrenal insufficiency symptoms. Most recently, she has been on prednisone 20 mg once a day. She is also on 2 liters of O2 continuously. She was doing fairly well until about few days prior to presentation when she started to notice increasing cough, dyspnea, productive of yellowish sputum. She notes that family including grandchildren had been sick. With worsening symptoms, she presented to the Emergency Room. Chest x-ray performed showed chronic bilateral moderate interstitial infiltrates. Otherwise, denies any recent nausea, vomiting, diarrhea. PAST MEDICAL HISTORY: As mentioned above, severe pneumonia in 11/2006, open lung biopsy showing cryptogenic organizing pneumonia, chronic high dose steroids for several months, process of tapering steroids, chronic hypoxic respiratory failure on 2 liters of O2, diabetes mellitus type 2 with peripheral neuropathy, generalized weakness, hypertension, anxiety disorder. Past history of DVT [facility] [address] [place] [address] CONSULTATION Name: CELY TIPTON Room #: 219-P ADM IN M.R.#: [id number] Admission: 10/13/18 Attend Phys: Denis Robertson MD Discharge: Date of : 63 Report #: [id number] involving the right upper extremity. PAST SURGICAL HISTORY: As mentioned above including tracheostomy in 11/2016 which was subsequently decannulated, PEG tube placement which was also removed, VATS with a right upper lobe wedge biopsy as mentioned above, muscle biopsy. ALLERGIES: LISINOPRIL CAUSES COUGH, MORPHINE REACTIONS NOT SPECIFIED, ADHESIVE TAPE REACTIONS UNSPECIFIED. HOME MEDICATIONS: Reviewed. This include diltiazem, insulin supplements, recent course of Augmentin, Norvasc, prednisone 20 mg once a day, losartan, Levemir, trazodone, buspirone, mirtazapine, nebulized albuterol, Lasix, Neurontin, OxyContin 20 mg b.i.d. FAMILY HISTORY: Noncontributory. SOCIAL HISTORY: She is a lifetime nonsmoker. She is disabled. REVIEW OF SYSTEMS: As mentioned above, otherwise 10-point system review negative. PHYSICAL EXAMINATION: GENERAL: She is awake, alert, appears to be in moderate distress due to dyspnea. VITAL SIGNS: Temperature is 100.5 degrees Fahrenheit, pulse is 110, respiratory rate is 22, blood pressure 150/80 mmHg, saturation 95%. HEENT: Normocephalic, atraumatic. NECK: Supple, without lymphadenopathy or thyromegaly. CHEST: Breath sounds are coarse bilaterally. Mild expiratory wheezes. CARDIOVASCULAR: Normal S1, S2. There is no murmur or gallop. There is no JVD. There is no carotid bruit. Pulses are 2+/4+ bilaterally. ABDOMEN: Soft, nontender. No organomegaly or masses felt. GENITOURINARY: Deferred. RECTAL: Deferred. EXTREMITIES: There is no edema, cyanosis or clubbing. LABORATORY DATA: Influenza A and B swab is positive for influenza A. Chest x-ray as mentioned above. Electrolytes are normal. Renal function is 0.9. Liver enzymes are grossly unremarkable. Glucose is 375. WBC 11,200, hemoglobin 12.8, platelets are normal. Arterial blood gas revealed pH 7.41, pCO2 of 40, pO2 108 on FiO2 100%. Albumin 2.6. IMPRESSION: 1. Pfgrk-sa-gssfbwb hypoxic respiratory failure in this 53-year-old -Cuban female. Antigen is positive for influenza A. She has a history of cryptogenic organizing pneumonia with pulmonary fibrosis, [address] [address] CONSULTATION Name: CELY TPITON Room #: 219-P ADM IN M.R.#: [id number] Admission: 10/13/18 Attend Phys: Denis Robertson MD Discharge: Date of : 63 Report #: [id number] bronchiectasis, chronic steroids. 2. Influenza A. 3. History of cryptogenic organizing pneumonia, pulmonary fibrosis, bronchiectasis with probable exacerbation. 4. Chronic steroid as mentioned above. She has been on prednisone 20 mg once a day as has been the lowest dose. 5. Diabetes mellitus type 2. 6. Hypertension. 7. Progressive debility and weakness due to chronic steroids. RECOMMENDATION: Agree with current treatment plans, Tamiflu, steroids, bronchodilators. DVT and GI prophylaxis is recommended. Also, agree with broad spectrum antibiotics. <ELECTRONICALLY SIGNED> By: Waqas Alonzo MD 10/15/18 1957 1836 2304 Waqas Alonzo MD /nt
[2018-10-15 21:08] VITALS: BP 160/67
[2018-10-15] MEDS ORDERED: TRAZODONE HCL50 MG PO (22:18)
[2018-10-15 23:12] VITALS: BP 159/66
--- NOTE | 2018-10-16 04:10 | NUR ---
AOX4. COMPLAINT OF PAIN ON THE MIDBACK. PRN MEDS FOR PAIN GIVEN WHICH AFFORDED PARTIAL RELIEF. SINUS TACHY ON THE MONITOR. PULSES 2+/2+. ON 3L/NC. COARSE CRACKLES LUNG SOUNDS. (+) NON PRODUCTIVE COUGH. MAINTAINED ON DROPLET PRECAUTION. IV ON THR RIGHT WRIST INTACT AND FLUSHES WELL. SCD ON. 23:06> TALKED TO LETY PATTEN REGARDING PATIENT'S COMPLAINT OF HEARTBURN. ALSO, PATIENT IS ASKING ABOUT HER MIRTAZAPINE AND TRAZODONE. ACCORDING TO PATIENT SHE IS TAKING TRAZODONE 50 MG AT BEDTIME AND MIRTAZAPINE 7.5 MG PO AT BEDTIME. LETY PATTEN ORDERED TO START PANTOPRAZOLE AND TO RESTART TRAZODONE AND MIRTAZAPINE. READBACK DONE AND ORDERS ENTERED. FF UP POC.
[2018-10-16 06:30] VITALS: BP 126/64
[2018-10-16 07:48] VITALS: BP 133/69
[2018-10-16 12:00] VITALS: BP 134/72
[2018-10-16 15:51] VITALS: BP 141/68
--- NOTE | 2018-10-16 19:30 | NUR ---
ASSUMED PATIENT CARE THIS AM. PATIENT LYING IN BED, A&O. NC 3L DOWN TO 2L THIS AFTERNOON. UP AD APPLE IN ROOM. TOLERATING DIET. UP TO CHAIR FOR BREAKFAST. NO NO N/V, N/T STATED.
[2018-10-16 20:55] VITALS: BP 117/81
[2018-10-16 23:55] VITALS: BP 149/79
[2018-10-17 03:57] VITALS: BP 155/85
--- NOTE | 2018-10-17 05:48 | NUR ---
pt resting quietly thru the noc, requesting prn pain med for back pain this am, vss, will con't to monitor per ppoc.
[2018-10-17 08:00] VITALS: BP 147/78
[2018-10-17] MEDS ORDERED: AUGMENTIN 875-1 EACH PO (09:38)
[2018-10-17] MEDS ORDERED: OSELB75 PO (09:38)
[2018-10-17] MEDS ORDERED: CARDIZEM CD240 MG PO (09:39)
[2018-10-17] MEDS ORDERED: BUSPIRONE HCL5 MG PO (09:39)
[2018-10-17] MEDS ORDERED: MUCINEX600 MG PO (09:39)
[2018-10-17] MEDS ORDERED: PREDNISONE 20 M20 MG PO (09:40)
--- NOTE | 2018-10-17 11:32 | NUR ---
ASSUMED PATIENT CARE THIS AM. PATIENT LYING IN BED, A&O. NC @ 2L. NO N/V STATED. PAIN MANAGED WITH ORAL MEDICATION. UP AD APPLE IN ROOM. PLAN TO DISCHARGE PATIENT HOME THIS AFTERNOON WITH PULMONARY FOLLOW UP IN 2 WEEKS, PER DR. ROMERO. NO COMPLAINTS STATED.
[2018-10-17 12:14] VITALS: BP 144/78
[2018-10-17 12:59] VITALS: BP 144/78
--- NOTE | 2018-10-17 14:28 | NUR ---
Pt dc'd to home today. Wheel Blocker visited with her this am. She has home o2 in place and is up ad ken in her room. She is on a medicaid spend down and can not get her meds til activated. Wheel Blocker spoke with the [facility] pharmacy and they will voucher scripts today and bill next week once [place]. No other needs indicated at this time.
== END 2018-10-17 13:30 | disposition home or self-care (01) | DRG 193 ==
LOC: ER 07:39 → 2N 09:51 → EROBS 09:51 → 2N 10:56 → ENTRNSPT 10-17 13:32 → EDTRNSPTSTS 10-17 13:34
PROVIDERS: Emergency Medicine; Nurse Practitioner; ADMIT Internal Medicine
DX: J10.08 Influenza due to other identified influenza virus with other specified pneumonia (principal); J96.21 Acute and chronic respiratory failure with hypoxia; E46 Unspecified protein-calorie malnutrition; E87.1 Hypo-osmolality and hyponatremia; J84.116 Cryptogenic organizing pneumonia; J15.9 Unspecified bacterial pneumonia; J44.1 Chronic obstructive pulmonary disease with (acute) exacerbation; J44.0 Chronic obstructive pulmonary disease with (acute) lower respiratory infection; D86.0 Sarcoidosis of lung; R00.0 Tachycardia, unspecified; E11.65 Type 2 diabetes mellitus with hyperglycemia; E83.42 Hypomagnesemia; E11.42 Type 2 diabetes mellitus with diabetic polyneuropathy; E88.09 Other disorders of plasma-protein metabolism, not elsewhere classified; F41.1 Generalized anxiety disorder; F32.9 Major depressive disorder, single episode, unspecified; Z79.4 Long term (current) use of insulin; Z93.1 Gastrostomy status; Z86.718 Personal history of other venous thrombosis and embolism; Z90.49 Acquired absence of other specified parts of digestive tract; Z88.6 Allergy status to analgesic agent; Z88.8 Allergy status to other drugs, medicaments and biological substances; Z68.38 Body mass index [BMI] 38.0-38.9, adult; Z79.52 Long term (current) use of systemic steroids; Z93.0 Tracheostomy status; Z79.899 Other long term (current) drug therapy
CPT/HCPCS: 10081

== ENCOUNTER → 2018-11-04 | Outpatient (CLI) | payer OTHER ==
[~2018-11-04] MED LIST changes: +BUSPIRONE HCL5 MG PO; +LOSARTAN PO; +MUCINEX600 MG PO; +NOVOLOG100 UNIT/1 SUBQ; +OSELB75 PO
== END ==
LOC: RAD 10:40
DX: J84.10 Pulmonary fibrosis, unspecified (principal)

== ENCOUNTER 2018-12-07 13:39 | Emergency (ER) | payer OTHER ==
[~2018-12-07] VITALS: Ht 170.2 cm; Wt 90.7 kg
[2018-12-07 14:54] LABS: HEMATOCRIT 39.4 % (37.0-47.0); MCV 79.5 fL (80.0-100.0)
[2018-12-07 14:55] LABS: ABSOLUTE NEUTROPHILS 8.4 thou/uL (1.4-8.2); BASOPHILS 1.1 % (0.0-2.0); EOSINOPHILS 0.8 % (0.0-3.0); HEMOGLOBIN 12.8 gm/dL (12.0-15.0); LYMPHOCYTES 8.9 % (24.0-44.0); MCH 25.9 pg (26.0-34.0); MCHC 32.6 g/dL (28.0-37.0); MONOCYTES 2.2 % (1.0-8.0); PLATELET COUNT 246 thou/uL (150-400); RBC 4.95 mil/uL (4.20-5.00); RDW 20.8 % (10.5-14.5); WBC 9.6 thou/uL (4.0-11.0)
[2018-12-07 15:08] LABS: ANION GAP 11 mmol/L (7-16); BUN 15 mg/dL (7-18); CALCIUM 9.1 mg/dL (8.5-10.1); CHLORIDE 100 mmol/L (98-107); CO2 27 mmol/L (21-32); GLUCOSE 390 mg/dL (74-106); POTASSIUM 4.3 mmol/L (3.5-5.1); SODIUM 138 mmol/L (136-145)
[2018-12-07 15:14] LABS: TROPONIN-I <0.06 ng/mL (<0.06)
[2018-12-07 15:18] LABS: ANISOCYTOSIS 2+; OVALOCYTES FEW
[2018-12-07] MEDS ORDERED: PREDNISONE 20 M20 MG PO (16:03)
[2018-12-07] MEDS ORDERED: DOXYCYCLINE 10100 MG PO (16:03)
[2018-12-07] MEDS ORDERED: TESSALON PERLE100 MG PO (16:03)
[2018-12-07 16:11] VITALS: BP 148/75
--- NOTE | 2018-12-08 08:59 | EKG ---
[place] [address] [facility] [place] [address] ELECTROCARDIOGRAM REPORT Name: CELY TIPTON [id number] ������������������ Admission: 12/07/18 ������������������ Attend Phys: Discharge: 12/07/18 ������������������ Date of : 63 Report #: [id number] ����������������������������������������������������������������� [id number] THIS REPORT FOR: //name// [facility] ED Test Date: 2018-12-07 Test Time: 14:35:53 Pat Name: CELY TIPTON Department: Room: Gender: F Internet Marketing Strategist: JOHANNE : 1965 Requested By: Loida Bean Order Number: [id number] MD: Reggie Baer Measurements Intervals [place] Rate: 89 P: 34 ND: 141 QRS: 9 QRSD: 80 T: 76 QT: 364 QTc: 443 Interpretive Statements Sinus rhythm Poor R wave progression Compared to ECG 10/13/2018 08:03:52 Left ventricular hypertrophy now present Sinus tachycardia no longer present ST and T-wave abnormality no longer present Electronically Signed On 12-08-2018 8:59:06 CDT by Reggie Baer [email or web address] ��������������������������������������������� <ELECTRONICALLY SIGNED> ���������������������������������������� By: Reggie Baer MD, [facility] ��������������������������������������������� 12/08/18 0859 1435 1435 Reggie Baer MD, [facility] /EPI
== END 2018-12-07 16:18 | disposition home or self-care (01) ==
LOC: ER 13:39
PROVIDERS: Nurse Practitioner Family
DX: J44.1 Chronic obstructive pulmonary disease with (acute) exacerbation (principal); J06.9 Acute upper respiratory infection, unspecified; I10 Essential (primary) hypertension; F41.9 Anxiety disorder, unspecified; E11.9 Type 2 diabetes mellitus without complications; Z91.048 Other nonmedicinal substance allergy status; Z88.5 Allergy status to narcotic agent; Z88.8 Allergy status to other drugs, medicaments and biological substances; Z86.718 Personal history of other venous thrombosis and embolism; Z90.49 Acquired absence of other specified parts of digestive tract; Z79.4 Long term (current) use of insulin

== ENCOUNTER → 2019-02-04 | Outpatient (CLI) | payer OTHER ==
[~2019-02-04] MED LIST changes: +DOXYCYCLINE 10100 MG PO; +TESSALON PERLE100 MG PO; +ULTRAM 50MG TAB50 MG PO
== END ==
LOC: RAD 13:13
DX: J84.10 Pulmonary fibrosis, unspecified (principal); J98.4 Other disorders of lung; I11.9 Hypertensive heart disease without heart failure; E11.9 Type 2 diabetes mellitus without complications; J44.9 Chronic obstructive pulmonary disease, unspecified; Z79.4 Long term (current) use of insulin

== ENCOUNTER 2019-02-06 13:52 | Emergency (ER) | payer OTHER ==
[~2019-02-06] VITALS: Ht 170.2 cm; Wt 90.7 kg
[~2019-02-06 13:52] MED LIST changes: -ULTRAM 50MG TAB50 MG PO
[2019-02-06 16:05] VITALS: BP 162/85
[2019-02-06] MEDS ORDERED: ULTRAM 50MG TAB50 MG PO (16:37)
== END 2019-02-06 18:34 | disposition home or self-care (01) ==
LOC: ER 13:52
DX: S83.92XA Sprain of unspecified site of left knee, initial encounter (principal); R60.0 Localized edema; I10 Essential (primary) hypertension; E11.9 Type 2 diabetes mellitus without complications; J44.9 Chronic obstructive pulmonary disease, unspecified; Z87.01 Personal history of pneumonia (recurrent); Z86.718 Personal history of other venous thrombosis and embolism; Z88.5 Allergy status to narcotic agent; Z88.8 Allergy status to other drugs, medicaments and biological substances; Z79.899 Other long term (current) drug therapy; W10.9XXA Fall (on) (from) unspecified stairs and steps, initial encounter; Y93.89 Activity, other specified; Y92.89 Other specified places as the place of occurrence of the external cause; Y99.8 Other external cause status

== ENCOUNTER 2019-04-27 20:50 | Emergency (ER) | payer OTHER ==
[~2019-04-27] VITALS: Ht 154.9 cm; Wt 93.9 kg
[~2019-04-27 20:50] MED LIST changes: +ULTRAM 50MG TAB50 MG PO
[2019-04-27 21:18] VITALS: BP 137/53
[2019-04-27] MEDS ORDERED: NORFLEX100 MG PO (21:30)
[2019-04-27] MEDS ORDERED: NORCO 5-325 TA1 EAC1 PO (21:30)
== END 2019-04-27 22:05 | disposition home or self-care (01) ==
LOC: ER 20:50
DX: S39.012A Strain of muscle, fascia and tendon of lower back, initial encounter (principal); I10 Essential (primary) hypertension; F41.9 Anxiety disorder, unspecified; E11.9 Type 2 diabetes mellitus without complications; Z90.49 Acquired absence of other specified parts of digestive tract; Z86.718 Personal history of other venous thrombosis and embolism; Z88.5 Allergy status to narcotic agent; Z88.8 Allergy status to other drugs, medicaments and biological substances; Z87.01 Personal history of pneumonia (recurrent); Z79.4 Long term (current) use of insulin; V89.2XXA Person injured in unspecified motor-vehicle accident, traffic, initial encounter; Y93.89 Activity, other specified; Y92.89 Other specified places as the place of occurrence of the external cause; Y99.8 Other external cause status

== ENCOUNTER → 2019-05-12 | Outpatient (CLI) | payer OTHER ==
[~2019-05-12] MED LIST changes: +NORCO 5-325 TA1 EAC1 PO; +NORFLEX100 MG PO
== END ==
LOC: RAD 15:18
DX: J44.9 Chronic obstructive pulmonary disease, unspecified (principal)

== ENCOUNTER 2019-08-10 10:08 | Emergency (ER) | payer OTHER ==
[~2019-08-10] VITALS: Ht 170.2 cm; Wt 99.8 kg
[2019-08-10 10:27] LABS: HEMATOCRIT 42.8 % (37.0-47.0); HEMOGLOBIN 13.4 gm/dL (12.0-15.0); MCH 25.7 pg (26.0-34.0); MCHC 31.3 g/dL (28.0-37.0); MCV 81.9 fL (80.0-100.0); PLATELET COUNT 277 thou/uL (150-400); RBC 5.22 mil/uL (4.20-5.00); RDW 17.6 % (10.5-14.5); WBC 11.8 thou/uL (4.0-11.0)
[2019-08-10 10:37] LABS: ANION GAP 9 mmol/L (7-16); BUN 12 mg/dL (7-18); CALCIUM 9.5 mg/dL (8.5-10.1); CHLORIDE 104 mmol/L (98-107); CO2 27 mmol/L (21-32); CREATININE 0.9 mg/dL (0.6-1.0); GLUCOSE 195 mg/dL (74-106); POTASSIUM 3.8 mmol/L (3.5-5.1); SODIUM 140 mmol/L (136-145)
[2019-08-10 10:47] LABS: LIPASE 65 U/L (73-393); MAGNESIUM 1.6 mg/dL (1.8-2.4); TROPONIN-I <0.06 ng/mL (<0.06)
[2019-08-10 10:54] LABS: ABSOLUTE NEUTROPHILS 9.3 thou/uL (1.4-8.2); PLATELET ESTIMATE NORMAL
[2019-08-10] MEDS ORDERED: ZOFRAN ODT4 MG PO (11:15)
[2019-08-10 11:29] VITALS: BP 163/79
--- NOTE | 2019-08-11 19:06 | EKG ---
[place] [address] [facility] [place] [address] ELECTROCARDIOGRAM REPORT Name: CELY TIPTON Room #: DEP Verena#: [id number] Admission: 08/10/19 Attend Phys: Discharge: 08/10/19 Date of : 63 Report #: [id number] THIS REPORT FOR: //name// [facility] ED Test Date: 2019-08-10 Test Time: 10:22:32 Pat Name: CELY TIPTON Department: Room: Gender: F Superintendent Track: arcelia nice : 1965 Requested By: Gibson Castillo Order Number: [id number] MD: Reggie Baer Measurements Intervals [place] Rate: 100 P: 44 FL: 168 QRS: 33 QRSD: 94 T: 87 QT: 362 QTc: 467 Interpretive Statements Sinus tachycardia Nonspecific T abnormalities, lateral leads Compared to ECG 12/07/2018 14:35:53 No significant change was found Electronically Signed On 08-11-2019 19:05:51 [employer] by Reggie Baer [email or web address] <ELECTRONICALLY SIGNED> By: Reggie Baer MD, [facility] 08/11/19 1905 1022 1022 Reggie Baer MD, [facility] /EPI
== END 2019-08-10 12:10 | disposition home or self-care (01) ==
LOC: ER 10:08
PROVIDERS: Emergency Medicine
DX: B34.9 Viral infection, unspecified (principal); I10 Essential (primary) hypertension; E11.9 Type 2 diabetes mellitus without complications; J44.9 Chronic obstructive pulmonary disease, unspecified; F41.9 Anxiety disorder, unspecified; Z90.49 Acquired absence of other specified parts of digestive tract; Z86.718 Personal history of other venous thrombosis and embolism; Z91.048 Other nonmedicinal substance allergy status; Z88.6 Allergy status to analgesic agent; Z88.8 Allergy status to other drugs, medicaments and biological substances

== ENCOUNTER → 2020-01-26 | Outpatient (CLI) | payer OTHER | LOC: RAD 13:26 | DX: J84.10 Pulmonary fibrosis, unspecified (principal) ==

== ENCOUNTER 2021-03-31 14:02 | Emergency (ER) | payer OTHER ==
[~2021-03-31] VITALS: Ht 172.7 cm; Wt 108.9 kg
[2021-03-31 17:23] VITALS: BP 153/90
== END 2021-03-31 17:24 ==
LOC: ER 14:02
DX: T25.222A Burn of second degree of left foot, initial encounter (principal); T25.221A Burn of second degree of right foot, initial encounter; I10 Essential (primary) hypertension; E11.9 Type 2 diabetes mellitus without complications; Z88.6 Allergy status to analgesic agent; Z88.5 Allergy status to narcotic agent; X58.XXXA Exposure to other specified factors, initial encounter; Y93.89 Activity, other specified; Y92.89 Other specified places as the place of occurrence of the external cause; Y99.8 Other external cause status

== ENCOUNTER 2021-04-29 08:29 | Emergency (ER) | payer OTHER ==
[~2021-04-29] VITALS: Ht 172.7 cm; Wt 83.0 kg
--- NOTE | ~2021-04-29 | EMS ---
[facility] [address] [place] [address] EMS Patient Care Report Name: CELY TIPTON Room #: DEP MAX Albarado#: [id number] Admission: 04/29/21 Attend Phys: Discharge: 04/29/21 Date of : 63 Report #: [id number] THIS REPORT FOR: //name// Report Transmitted: 05/01/2021 13:23 EMS Care Summary [place], [place]/[facility] Incident [id number] @ 04/29/2021 08:03 Incident Location [facility] Patient CELY TIPTON Female, 55 Years 1965 Patient Address [address] [place] [address] Patient History Diabetes,Hypertension (HTN),Neuropathy, Patient Allergies Latex allergy,Lisinopril, Patient Medications Gabapentin, Losartan, Insulin, Chief Complaint abdominal pain Disposition Transported No Lights/[place] Dispatch Reason Sick Person Transported To [facility] Narrative M42 arrived on scene to find the patient lying supine in her bed. Patient said for the past few weeks she had been feeling weak. Patient said yesterday day morning her stomach started hurting. Patient said last night she started [facility] [address] [place] [address] EMS Patient Care Report Name: CELY TIPTON Room #: DEP Verena#: [id number] Admission: 04/29/21 Attend Phys: Discharge: 04/29/21 Date of : 63 Report #: [id number] feeling sick to her stomach. The last hour or so the patient started vomiting. Nursing staff said they had given the patient zofran with no effects. Patient denied chest pain or shortness of breath. En route to the hospital no changes in the patient condition occurred. M42 arrived on scene of the hospital and patient care was transferred to the RN. Initial Vitals @08:21P: 84,R: 16,BP: 149/81,Pain: 8/10,GCS: 15,SpO2: 99,Revised Trauma: 12, @08:22P: 89,R: 14,BP: 151/83,Pain: 8/10,GCS: 15,CO: 0,SpO2: 98,Revised Trauma: 12, Assessments @08:15MENTAL:No Abnormalities,SKIN:No Abnormalities,HEENT:Head/Face: No Abnormalities,Eyes: No Abnormalities,Neck/Airway: No Abnormalities,LUNG SOUNDS:Left Lower: Tenderness,Right Lower: Tenderness,Right Upper: Tenderness,General: Nausea,Left Upper: Tenderness,ABDOMEN:Left Lower: Tenderness,Right Lower: Tenderness,Right Upper: Tenderness,General: Nausea,Left Upper: Tenderness,PELVIS//GI:No Abnormalities,EXTREMITIES:Left Arm: No Abnormalities,Right Arm: No Abnormalities,Left Leg: No Abnormalities,Right Leg: No Abnormalities,PULSE:NEURO:No Abnormalities,@08:31MENTAL:No Abnormalities,SKIN:No Abnormalities,HEENT:Head/Face: No Abnormalities,Eyes: No Abnormalities,Neck/Airway: No Abnormalities,LUNG SOUNDS:Right Lower: Tenderness,Left Upper: Tenderness,Left Lower: Tenderness,Right Upper: Tenderness,ABDOMEN:Right Lower: Tenderness,Left Upper: Tenderness,Left Lower: Tenderness,Right Upper: Tenderness,PELVIS//GI:No Abnormalities,EXTREMITIES:Left Arm: No Abnormalities,Right Arm: No Abnormalities,Left Leg: No Abnormalities,Right Leg: No Abnormalities,PULSE:NEURO:No Abnormalities, Impression Abdominal Pain Procedures @08:15ALS AssessmentResponse: UnchangedSucceeded Timeline 08:01,Call Received 08:01,Dispatch Notified 08:03,Dispatched 08:04,En Route 08:14,On Scene 08:15,At Patient 08:15,ALS Assessment,Response: UnchangedSucceeded, 08:21,BP: 149/81 M,PULSE: 84,RR: 16 R,SPO2: 99 Ox,ETCO2: ,BG: ,PAIN: 8,GCS: 15, 08:22,BP: 151/83 M,PULSE: 89,RR: 14 R,SPO2: 98 Ox,ETCO2: ,BG: ,PAIN: 8,GCS: 15, 08:23,Depart Scene [address] [address] EMS Patient Care Report Name: CELY TIPTON Room #: [facility] MAX Albarado#: [id number] Admission: 04/29/21 Attend Phys: Discharge: 04/29/21 Date of : 63 Report #: [id number] 08:34,At Destination 08:37,Call Closed Disclaimer v1.1 Copyright 2020 [employer] This EMS Care Summary contains data elements from the applicable legal record (which may be displayed differently). It is designed to provide pertinent information for the following purposes: continuity of care, clinical quality, and state data reporting. The complete legal record is available to ED staff and administrators of the receiving hospital in [employer] Patient Tracker. All data is provided "as is."
[2021-04-29 10:11] LABS: URINE BILIRUBIN NEGATIVE (Negative); URINE BLOOD TRACE (Negative); URINE CLARITY CLEAR; URINE COLOR YELLOW; URINE GLUCOSE-RANDOM* NEGATIVE (Negative); URINE KETONES TRACE (Negative); URINE LEUKOCYTES-REFLEX NEGATIVE (Negative); URINE NITRITE-REFLEX NEGATIVE (Negative); URINE PROTEIN (DIPSTICK) TRACE (Negative); URINE SPECIFIC GRAVITY 1.015 (1.005-1.035); URINE UROBILINOGEN 0.2 E.U./dl (0.2-1.0)
[2021-04-29 10:12] LABS: ABSOLUTE NEUTROPHILS 4.7 thou/uL (1.4-8.2); HEMATOCRIT 34.8 % (37.0-47.0); HEMOGLOBIN 11.2 gm/dL (12.0-15.0); LYMPHOCYTES 20.7 % (24.0-44.0); MCH 26.9 pg (26.0-34.0); MCHC 32.2 g/dL (28.0-37.0); MCV 83.7 fL (80.0-100.0); MONOCYTES 10.8 % (1.0-8.0); PLATELET COUNT 329 thou/uL (150-400); POLYS 63.5 % (36.0-66.0); RBC 4.15 mil/uL (4.20-5.00); RDW 17.8 % (10.5-14.5); WBC 7.3 thou/uL (4.0-11.0)
[2021-04-29] MEDS ORDERED: ACIDOPHILUS LA1 EAC1 PO (10:13)
[2021-04-29] MEDS ORDERED: ALPRAZOLAM 0.0.25 M1 PO (10:14)
[2021-04-29] MEDS ORDERED: BENADRYL25 MG PO (10:15)
[2021-04-29] MEDS ORDERED: BUSPIRONE HCL5 MG PO (10:15)
[2021-04-29] MEDS ORDERED: ENOXAPARIN40 MG/0.1 SUBQ (10:16)
[2021-04-29] MEDS ORDERED: LEVEMIR100 UNIT/1 SUBQ (10:17)
[2021-04-29] MEDS ORDERED: HUMALOG JU100 UNIT/1 SUBQ (10:19)
[2021-04-29] MEDS ORDERED: PREDNISONE 10 M10 MG PO (10:20)
[2021-04-29] MEDS ORDERED: MIRALAX17 G1 PO (10:21)
[2021-04-29] MEDS ORDERED: LIPITOR40 MG PO (10:22)
[2021-04-29] MEDS ORDERED: TYLENOL325 M1 PO (10:22)
[2021-04-29] MEDS ORDERED: LOPRESSOR50 MG PO (10:23)
[2021-04-29] MEDS ORDERED: VITAMIN D21250 MCG PO (10:26)
[2021-04-29] MEDS ORDERED: KRISTALOSE20 GM PO (10:26)
[2021-04-29] MEDS ORDERED: ROXICODONE5 MG PO (10:27)
[2021-04-29 10:28] LABS: CALCIUM 8.9 mg/dL (8.5-10.1); CREATININE 1.2 mg/dL (0.6-1.0); POTASSIUM 4.9 mmol/L (3.5-5.1)
[2021-04-29 10:31] LABS: ALBUMIN 2.2 g/dL (3.4-5.0); TOTAL BILIRUBIN 0.2 mg/dL (0.2-1.0); TOTAL PROTEIN 7.6 g/dL (6.4-8.2)
[2021-04-29] MEDS ORDERED: AZITHROMYCIN 2250 MG PO (11:29)
[2021-04-29] MEDS ORDERED: PROMS25 WY RECTAL (12:02)
[2021-04-29 12:32] VITALS: BP 144/59
--- NOTE | 2021-04-30 09:21 | EKG ---
[place] [address] [facility] [employer] [place] [address] ELECTROCARDIOGRAM REPORT Name: CELY TIPTON [facility] [id number] Admission: 04/29/21 Attend Phys: Discharge: 04/29/21 Date of : 63 Report #: [id number] [facility] ED Test Date: 2021-04-29 Test Time: 09:20:11 Pat Name: CELY TIPTON Department: Room: Gender: F [employer] Operator: RADHA : 1965 Requested By: Jerry Flores Order Number: [id number] MD: Ty Vega Measurements Intervals [place] Rate: 80 P: 43 MN: 140 QRS: 30 QRSD: 79 T: 67 QT: 404 QTc: 466 Interpretive Statements Sinus rhythm Left atrial enlargement Baseline wander in lead(s) II,III,aVF Compared to ECG 08/10/2019 10:22:32 Atrial abnormality now present Sinus tachycardia no longer present T-wave abnormality no longer present Electronically Signed On 04-30-2021 9:21:46 CDT by Ty Vega [email or web address] <ELECTRONICALLY SIGNED> By: Ty Vega MD, [facility] 04/30/21920 9 9 Ty Vega MD, [facility] /EPI
== END 2021-04-29 12:33 | disposition home or self-care (01) ==
LOC: ER 08:29
PROVIDERS: Emergency Medicine
DX: J18.9 Pneumonia, unspecified organism (principal); R10.84 Generalized abdominal pain; I10 Essential (primary) hypertension; J45.909 Unspecified asthma, uncomplicated; E11.9 Type 2 diabetes mellitus without complications; J44.9 Chronic obstructive pulmonary disease, unspecified; Z88.1 Allergy status to other antibiotic agents; Z79.2 Long term (current) use of antibiotics; Z79.4 Long term (current) use of insulin; Z79.899 Other long term (current) drug therapy; Z20.822 Contact with and (suspected) exposure to COVID-19